=== PATIENT | female | born 1995 | race Caucasian/White ===

== ENCOUNTER → 2018-06-29 11:47 | Outpatient (CLI) | payer BC, SELFPAY ==
[2015-10-01 22:59] VITALS: BMI 22.8
[2018-06-29 15:43] LABS: Chlamydia Trachomatis by PCR Negative (Negative); Neisserai gonorrhoeae by PCR Negative (Negative); Probe Check PASS; Sample Adequacy Control PASS; Specimen Processing Control PASS
== END ==
PROVIDERS: Visit Provider Obstetrics & Gynecology
DX: Z11.3 Encounter for screening for infections with a predominantly sexual mode of transmission (principal); Z34.81 Encounter for supervision of other normal pregnancy, first trimester
CPT/HCPCS: 36415; 84702; 87491; 87591

== ENCOUNTER → 2018-07-05 11:40 | Outpatient (CLI) | payer BC, SELFPAY ==
[2018-07-05 12:28] LABS: Absolute Lymphocyte Count 1.78 X10^3/ul (0.83-4.51); Basophil# 0.01 X10^3/uL; Basophil% 0.1 % (0-1); Eosinophil# 0.03 X10^3/uL; Eosinophils% 0.4 % (0-5); Hematocrit 40.1 % (37-47); Hemoglobin 13.4 g/dl (12.0-15.0); Lymphocyte # 1.78 X10^3/ul (4.0); Lymphocyte % 24.7 % (19-41); Mean Corp Hgb Conc 33.4 g/gl (32-36); Mean Corpuscular Hgb 27.5 pg (27.0-32.0); Mean Corpuscular Volume 82.2 fL (81-99); Mean Platelet Vol. 10.9 fl (6.2-12.0); Monocyte# 0.38 X10^3/uL; Monocyte% 5.3 % (0-10); Neutrophil # 4.98 X10^3/uL (2.7-7.7); Neutrophil % 69.1 % (47-70); Platelet Count 245 K/mm3 (150-450); RBC Distribution Width CV 13.5 % (11.6-14.6); RBC Distribution Width SD 39.8 fl (35.1-43.9); Red Blood Count 4.88 M/mm3 (4.2-5.4); White Blood Count 7.2 K/mm3 (4.4-11.0)
[2018-07-05 12:31] LABS: POSITIVE COUNT NO; POSITIVE DIFFERENTIAL NO; POSITIVE MORPHOLOGY NO
[2018-07-05 12:35] LABS: Color, Urine Yellow (Yellow); Glucose, Dipstick Normal (Normal); Ketone-Dipstick Negative (Negative); Leukocyte Esterase-Dipstick 25 /ul (Negative); Nitrite-Dipstick Negative (Negative); Occult Blood-Urine Negative /ul (Negative); Protein-Dipstick 15 mg/dl (Negative); Specific Gravity, Urine 1.015 (1.002-1.030); Urine Bilirubin Dipstick Negative (Negative); Urine Clarity Clear (Clear); Urine Urobilinogen Normal (Normal)
[2018-07-05 12:39] LABS: Amphetamine Urine VISTA NEGATIVE (<1000 ng/mL); Barbiturate Urine VISTA NEGATIVE (< 200 ng/mL); Benzodiazepine Urine VISTA NEGATIVE (< 200 ng/mL); Cocaine Urine VISTA NEGATIVE (< 300 ng/mL); Ecstacy Urine VISTA NEGATIVE (< 500 ng/mL); Methadone Urine VISTA NEGATIVE (< 300 ng/mL); PCP Urine VISTA NEGATIVE (< 25 ng/mL); THC Urine VISTA NEGATIVE (< 50 ng/mL); Vista UDS pH Range 7
[2018-07-05 12:44] LABS: Thyroid Stim Hormone (TSH) 1.15 uIU/mL (0.358-3.74)
[2018-07-05 13:24] LABS: HIV - WCH Non-Reactive (Nonreactive); Rubella IgG 113.9 IU/mL; Vitamin D,25 Hydroxy 15.9 ng/mL (29.95-100.01)
[2018-07-06 01:44] LABS: Prenatal RPR NONREACTIVE (NONREACTIVE)
[2018-07-06 13:27] LABS: HEPATITIS B SURFACE AG Negative (Negative); Hep C Antibodies <0.1 s/co ratio (0.0-0.9); Toxoplasma Gondii IgG < 3.0 IU/mL (0.0-7.1); Toxoplasma Gondii IgM < 3.0 AU/mL (0.0-7.9)
== END ==
PROVIDERS: Visit Provider Obstetrics & Gynecology
DX: Z34.81 Encounter for supervision of other normal pregnancy, first trimester (principal)
CPT/HCPCS: 36415; 80307; 81002; 82306; 84443; 85025; 86703; 86762; 86777; 86778; 86803; 87340

== ENCOUNTER 2018-08-04 11:10 | Emergency (ER) | payer BC, SELFPAY ==
[2018-08-04 11:11] VITALS: BP 108/70; PULSE 94; RESP 16; TEMP 36.8; O2SAT 100; BMI 31.3
[2018-08-04] MEDS: 0.9% Normal Saline 1,000 ML 1000 ML IV (11:41)
[2018-08-04] MEDS: proMETHazine 25 MG/ML Syringe 12.5 MG IV (11:41)
[2018-08-04 11:54] LABS: Absolute Lymphocyte Count 1.34 X10^3/ul (0.83-4.51); Absolute Neutrophil Count 5.3 X10^3/uL (2.0-7.7); Basophil# 0.01 X10^3/uL; Basophil% 0.1 % (0-1); Eosinophil# 0.04 X10^3/uL; Eosinophils% 0.6 % (0-5); Hematocrit 37.7 % (37-47); Lymphocyte # 1.34 X10^3/ul (4.0); Lymphocyte % 18.8 % (19-41); Mean Corp Hgb Conc 34.5 g/gl (32-36); Mean Corpuscular Hgb 28.3 pg (27.0-32.0); Mean Platelet Vol. 10.6 fl (6.2-12.0); Monocyte# 0.38 X10^3/uL; Monocyte% 5.3 % (0-10); Neutrophil # 5.33 X10^3/uL (2.7-7.7); Neutrophil % 74.8 % (47-70); POSITIVE COUNT NO; POSITIVE DIFFERENTIAL NO; POSITIVE MORPHOLOGY NO; Platelet Count 194 K/mm3 (150-450); RBC Distribution Width CV 13.5 % (11.6-14.6); RBC Distribution Width SD 39.8 fl (35.1-43.9); White Blood Count 7.1 K/mm3 (4.4-11.0)
[2018-08-04 12:02] LABS: Anion Gap 6 (5-15); BUN 8 mg/dL (7-18); Calcium,Total 9.2 mg/dL (8.5-10.1); Chloride 108 mmol/L (98-107); Creatinine, Serum 0.57 mg/dL (0.55-1.02); EST Glomerular Filtration Rate 138 mL/min (>60); Est Glom Filt Rate - Afr Amer 167 mL/min (>60); Estimated Creatinine Clearance 153.52 ml/min; Glucose 86 mg/dL (74-106); Sodium Level 137 mmol/L (136-145)
[2018-08-04 13:05] VITALS: BP 107/51; PULSE 60; RESP 16
[2018-08-04] MEDS: 0.9% Normal Saline 1,000 ML 150 ML IV (13:08)
[2018-08-04 13:13] LABS: Red Blood Cells-Urine 0 SEEN /hpf (0-5)
[2018-08-04 13:18] LABS: Color, Urine Yellow (Yellow); Glucose, Dipstick Normal (Normal); Ketone-Dipstick Negative (Negative); Leukocyte Esterase-Dipstick 25 /ul (Negative); Nitrite-Dipstick Negative (Negative); Occult Blood-Urine Negative /ul (Negative); Protein-Dipstick Negative (Negative); Urine Bilirubin Dipstick Negative (Negative); Urine Clarity Sl. Cloudy (Clear); Urine Urobilinogen Normal (Normal)
[2018-08-04 13:26] LABS: Bacteria 2+ /hpf (None Seen); Mucous, Urine 1+ /hpf (<or=2+); Squamous Epithelial Cells - UA 0-5 SEEN /hpf (5-10); White Blood Cells 0-5 SEEN /hpf (0-5)
--- NOTE | 2018-08-04 14:32 | ED.VISSUMM ---
- ER Visit Summary Date of Service: 08/04/18 Chief Complaint: Nausea and vomiting History of Present Illness: The patient is a 23 F who is currently 12 weeks . She states she has had nausea throughout her but is been worse over the past 2 days. States is not been able to keep anything down and has noted decreased urination. Physical Examination: Vital signs unremarkable. Patient lying in bed no acute distress. Heart is regular rate and rhythm. Lung sounds are clear. Abdomen is soft with mild suprapubic tenderness. No guarding or rebound. Test Results: CBC and chemistry studies unremarkable. Urinalysis unremarkable. Emergency Department Course and Treatment: Patient was given IV fluids and Phenergan. She is given p.o. fluid challenge. At this time she is able to tolerate p.o. fluids. She does not want to try to eat. She will be given Phenergan p.o. and suppositories for home. She is to return for any worsening symptoms. Treatment Plan: [] Disposition: Discharge Impression: 1. Vomiting, improved 2. First trimester This note was generated with [employer] dictation software. It may contain incorrect words, spelling, and punctuation that were not noted in review of the chart prior to signing ED Disposition - Plan for ED Patient: Disposition: Home or Assisted Living Instructions: ED Nausea Vomiting Prescriptions: proMETHazine suppository [Phenergan Suppository] 25 mg RECTAL Q6H PRN PRN #6 suppos. PRN Reason: Nausea proMETHazine tablet [Phenergan] 25 mg PO Q6H PRN PRN #10 tablet PRN Reason: Nausea Referrals: Colette Asutdillo MD [STAFF PHYSICIAN] - 5-7 Days
[2018-08-04 14:48] VITALS: PULSE 60; RESP 16; O2SAT 100
== END 2018-08-04 14:48 | disposition home or self-care (01) ==
PROVIDERS: Emergency Provider Emergency Medicine
DX: O21.9 Vomiting of pregnancy, unspecified (principal); Z3A.12 12 weeks gestation of pregnancy
CPT/HCPCS: 80048; 81001; 85025; 96361; 96374; 99284; J7030

== ENCOUNTER 2018-09-20 00:02 | Emergency (ER) | payer MEDICAID, SELFPAY ==
[2018-09-20 00:02] VITALS: BP 142/72; PULSE 88; RESP 20; TEMP 36.8; O2SAT 99; BMI 31.2
--- NOTE | 2018-09-20 00:40 | US_ITS ---
STUDY: SECOND AND THIRD TRIMESTER OBSTETRICAL ULTRASOUND - LIMITED REASON FOR EXAM: Female, 23 years old. Pain and cramping. LMP: 05/16/2018 PRIOR ULTRASOUND: None. TECHNIQUE: Transabdominal TECHNICAL QUALITY: Adequate. FINDINGS: There is a single intrauterine fetus. The fetus is in a cephalic presentation. There is demonstrated cardiac activity with a heart rate of 136 bpm. There is a normal amniotic fluid volume. The largest amniotic fluid pocket measures 2.5 cm. The amniotic The placenta is posterior with a marginal previa. There are Grade 0 placental changes. The cervix measures 3.3 cm in length. BIOMETRY: BPD: 3.9: 18 weeks, 1 days HC: 14.8: 18 weeks, 0 days AC: 12.8: 18 weeks, 3 days FL: 2.7: 18 weeks, 2 days Age by LMP: 18 weeks, 1 days. CHRISTY by LMP: 02/20/2019. age by current US: 18 weeks, 2 days. CHRISTY by current US: 02/19/2019. Estimated weight: 233 grams, +/- 34 grams, 54 percentile. US/Transvaginal w/Preg US IMPRESSION: The placenta is posterior with a marginal previa Electronically Signed: Ronnie Leyva, at 3:22 EDT Tel , Service support ,
--- NOTE | 2018-09-20 00:41 | ED.VISSUMM ---
- ER Visit Summary Date of Service: 09/20/18 Chief Complaint: Pelvic cramping History of Present Illness: The patient is a 23 F presenting with pelvic cramping. Patient states this started around 1030 this evening. She states she initially had lower back pain and then developed severe lower abdominal pain. She is approximately 18 weeks . G1, P0. She denies vaginal bleeding or fluid leakage. She also complains of chest pain and back pain. She denies shortness of breath. Denies pain with deep inspiration. Denies other complaints. Physical Examination: Vitals are stable. Patient is afebrile. Alert no acute distress. HEENT exam is unremarkable. Neck is supple. Lungs are clear and equal bilaterally. Heart is regular rate and rhythm. Abdomen is soft suprapubic tenderness : Cervix is closed, no vaginal bleeding or tissue visualized Extremities are unremarkable. Skin is warm and dry. Remainder of exam is unremarkable. Emergency Department Course and Treatment: Patient was given morphine, Zofran IV. CBC, chemistries unremarkable. Urinalysis unremarkable. EKG is sinus rate of 64 with no acute ischemic changes. Troponin is negative. Lipase is normal. Pelvic ultrasound shows the placenta is posterior with a marginal previa. CTA chest shows normal CTA chest examination, without a demonstrated pulmonary embolism or arterial dissection. On repeat evaluation, patient is now resting comfortably. She states her pain has resolved. Discussed with Dr. Patterson covering for Dr. Astudillo. Patient will follow-up in the office. Advised to return to the ED for any worsening complaints. Disposition: Discharged home Impression: Pelvic pain, This note was generated with [employer] dictation software. It may contain incorrect words, spelling, and punctuation that were not noted in review of the chart prior to signing ED Disposition - Plan for ED Patient: Referrals: Care Physician,No Primary [Primary Care Provider] -
[2018-09-20] MEDS: Ondansetron 4 MG/2 ML Vial IV (00:44)
[2018-09-20] MEDS: Morphine 4 MG/ML Syringe IV (00:44)
[2018-09-20 01:06] LABS: Bacteria 0 SEEN /hpf (None Seen); Mucous, Urine 0 SEEN /hpf (<or=2+); Red Blood Cells-Urine 0 SEEN /hpf (0-5); White Blood Cells 0 SEEN /hpf (0-5)
[2018-09-20 01:08] LABS: Absolute Lymphocyte Count 3.05 X10^3/ul (0.83-4.51); Absolute Neutrophil Count 6.3 X10^3/uL (2.0-7.7); Basophil# 0.01 X10^3/uL; Basophil% 0.1 % (0-1); Eosinophil# 0.08 X10^3/uL; Eosinophils% 0.8 % (0-5); Hematocrit 37.3 % (37-47); Hemoglobin 12.7 g/dl (12.0-15.0); Lymphocyte # 3.05 X10^3/ul (4.0); Mean Corpuscular Hgb 28.9 pg (27.0-32.0); Mean Platelet Vol. 10.7 fl (6.2-12.0); Monocyte# 0.63 X10^3/uL; Monocyte% 6.2 % (0-10); Neutrophil # 6.34 X10^3/uL (2.7-7.7); Neutrophil % 62.4 % (47-70); POSITIVE COUNT NO; POSITIVE DIFFERENTIAL NO; POSITIVE MORPHOLOGY NO; Platelet Count 195 K/mm3 (150-450); RBC Distribution Width SD 43.3 fl (35.1-43.9); Red Blood Count 4.39 M/mm3 (4.2-5.4); White Blood Count 10.2 K/mm3 (4.4-11.0)
[2018-09-20 01:13] LABS: Anion Gap 6 (5-15); BUN 10 mg/dL (7-18); Calcium,Total 9.1 mg/dL (8.5-10.1); Chloride 106 mmol/L (98-107); Creatinine, Serum 0.59 mg/dL (0.55-1.02); EST Glomerular Filtration Rate 133 mL/min (>60); Est Glom Filt Rate - Afr Amer 161 mL/min (>60); Estimated Creatinine Clearance 148.32 ml/min; Glucose 86 mg/dL (74-106); Potassium 4.4 mmol/L (3.5-5.1); Sodium Level 135 mmol/L (136-145)
[2018-09-20 01:25] LABS: Color, Urine Yellow (Yellow); Glucose, Dipstick Normal (Normal); Ketone-Dipstick 5 mg/dl (Negative); Leukocyte Esterase-Dipstick Negative /ul (Negative); Nitrite-Dipstick Negative (Negative); Occult Blood-Urine Negative /ul (Negative); Protein-Dipstick 15 mg/dl (Negative); Urine Bilirubin Dipstick Negative (Negative); Urine Clarity Sl. Cloudy (Clear); Urine Urobilinogen Normal (Normal)
[2018-09-20 01:31] LABS: Squamous Epithelial Cells - UA 0-5 SEEN /hpf (5-10)
[2018-09-20 02:39] VITALS: BP 108/62; PULSE 79; RESP 18; O2SAT 97
--- NOTE | 2018-09-20 03:32 | CT_ITS ---
STUDY: CTA CHEST REASON FOR EXAM: Female, 23 years old. Chest pain radiating to the back RADIATION DOSAGE (If Supplied By Facility): CTDIvol = ( 12.46 ) mGy, DLP = ( 451.56 ) mGycm TECHNIQUE: The examination was performed with the intravenous administration of 100ML IV Isovue 370. Post-processing of the angiographic images was performed, with multiplanar reformation and 3D reconstruction. Individualized dose optimization techniques were used for this CT. COMPARISON: None. FINDINGS: Normal enhancement of the main pulmonary artery and right and left pulmonary arteries. Normal enhancement of the bilateral peripheral pulmonary arteries. There is no demonstrated pulmonary embolism. Normal thoracic aorta and visualized great vessels. There is no demonstrated aortic dissection. Normal heart and pericardium. Normal mediastinum. Normal hilar regions. Normal visualized trachea and bronchi. The lungs are well expanded. Normal pulmonary parenchyma. Normal pleura. Normal chest wall structures. Normal osseous structures. Normal visualized upper abdomen. CT/CTA Chest W/WO Contrast IMPRESSION: Normal CTA chest examination, without a demonstrated pulmonary embolism or arterial dissection. Electronically Signed: Ronnie Leyva, at 4:15 EDT Tel , Service support ,
--- NOTE | 2018-09-20 03:33 | EKG12_ITS ---
Test Reason : Blood Pressure : / mmHG Vent. Rate : 064 BPM Atrial Rate : 064 BPM P-R Int : 186 ms QRS Dur : 080 ms QT Int : 430 ms P-R-T Axes : 025 007 003 degrees QTc Int : 443 ms Normal sinus rhythm Possible Left atrial enlargement Borderline ECG Confirmed by [employer] FOREMAN, MATIAS ([id number]), editor city [place] BOSCH ([id number]) on 09/24/2018 1:30:57 PM Referred By: NADINE Confirmed By:MATIAS DUTTON MD
[2018-09-20 05:03] LABS: Lipase 108 U/L (73-393)
--- NOTE | 2018-09-20 05:16 | ED.DEP ---
ED Disposition - Plan for ED Patient: Instructions: Back Pain During , ABDOMINAL PAIN, Early Referrals: Colette Astudillo MD [STAFF PHYSICIAN] -
[2018-09-20 05:25] VITALS: BP 113/79; PULSE 74; RESP 16; O2SAT 98
== END 2018-09-20 05:25 | disposition home or self-care (01) ==
LOC: ED 00:35
PROVIDERS: Emergency Provider Emergency Medicine
DX: O26.892 Other specified pregnancy related conditions, second trimester (principal); R10.2 Pelvic and perineal pain; Z3A.18 18 weeks gestation of pregnancy
CPT/HCPCS: 71275; 76817; 80048; 81001; 83690; 84484; 85025; 93005; 96374; 96375; 99283; Q9967; A4216; J2405

== ENCOUNTER → 2018-11-26 08:54 | Outpatient (CLI) | payer MEDICAID, SELFPAY ==
[2018-11-26 10:41] LABS: Hematocrit 32.9 % (37-47); Hemoglobin 10.5 g/dL (12.0-15.0); Mean Corp Hgb Conc 31.9 g/dL (32-36); Mean Corpuscular Hgb 28.7 pg (27.0-32.0); Mean Corpuscular Volume 89.9 fL (81-99); Mean Platelet Vol. 10.7 fl (6.2-12.0); Platelet Count 216 K/mm3 (150-450); RBC Distribution Width CV 13.1 % (11.6-14.6); RBC Distribution Width SD 42.7 fl (35.1-43.9); Red Blood Count 3.66 M/mm3 (4.2-5.4); White Blood Count 8.1 K/mm3 (4.4-11.0)
[2018-11-26 10:46] LABS: Glucose Challenge Gest 1H 50g 129 mg/dL (70-140)
== END ==
PROVIDERS: Visit Provider Obstetrics & Gynecology
DX: Z34.82 Encounter for supervision of other normal pregnancy, second trimester (principal)
CPT/HCPCS: 36415; 82950; 85027

== ENCOUNTER 2018-12-05 19:40 | Outpatient (CLI) | payer MEDICAID, SELFPAY ==
[2018-12-05 20:09] VITALS: BMI 31.7
--- NOTE | 2018-12-08 06:17 | OB.TRI.NOTE ---
History of Present Illness Date of Service: 12/05/18 Was patient seen by the physician?: No Reason For Visit: DECREASED MOVEMENT Date of Service: 12/05/18 Final CHRISTY: 02/20/19 Gestational age: 29 Weeks History of Present Illness: 23 yo presented to triage c/0 decreased FM; she states to RN that her placenta is also close to my cervix; she denies bleeding or contractions Allergies No Known Allergies Allergy (Verified 09/20/18 00:04) NST - FHR Rate Baby A Variability:: Moderate Accelerations:: 15 x 15 Decelerations:: None NST Reactive:: Yes, Appropriate for gestational age FHR Category:: Category I Uterine Activity:: occasional Impression/Plan Assessment: Reactive NST, patient now feeling FM Plan: Discharge home with PTL precautions, pelvic rest until next appointment; keep next scheduled appointment in office on Monday
== END 2018-12-05 20:38 | disposition home or self-care (01) ==
LOC: WPOUT 19:49 → WP 19:50
PROVIDERS: Referring Provider Advanced Practice Midwife; Visit Provider Advanced Practice Midwife
DX: O36.8130 Decreased fetal movements, third trimester, not applicable or unspecified (principal); Z3A.29 29 weeks gestation of pregnancy
CPT/HCPCS: 59025; 99218; G0378

== ENCOUNTER → 2019-01-24 18:01 | Outpatient (CLI) | payer MEDICAID, SELFPAY | PROVIDERS: Referring Provider Obstetrics & Gynecology; Visit Provider Obstetrics & Gynecology | DX: Z36.85 Encounter for antenatal screening for Streptococcus B (principal) | CPT/HCPCS: 87077; 87081 ==

== ENCOUNTER 2019-02-03 20:15 | Outpatient (CLI) | payer MEDICAID, SELFPAY ==
[2019-02-03 20:58] VITALS: BMI 34.6
--- NOTE | 2019-02-06 07:37 | OB.TRI.NOTE ---
History of Present Illness Date of Service: 02/03/19 Was patient seen by the physician?: No Reason For Visit: RULE OUT LABOR Date of Service: 02/03/19 Final CHRISTY: 02/20/19 Final CHRISTY Source: US <20 weeks Gestational age: 38 Weeks and 0 Days History of Present Illness: 23 yo female at 37 + wks presents for labor check. Uncomfortable after walking around shopping. Allergies No Known Allergies Allergy (Verified 09/20/18 00:04) NST - FHR Rate Baby A Variability:: Moderate Accelerations:: 15 x 15 Decelerations:: None NST Reactive:: Yes, Appropriate for gestational age FHR Category:: Category I Uterine Activity:: rare UCs noted. Impression/Plan 23 yo Female at 3 74/7 wk False labor. Reactive NST Home Keep next appt in office Return to [facility] if inc s/sx of labor, or if decreased movement.
== END 2019-02-03 21:27 | disposition home or self-care (01) ==
LOC: WPOUT 20:41 → WP 20:41
PROVIDERS: Referring Provider Obstetrics & Gynecology; Visit Provider Obstetrics & Gynecology
DX: O47.1 False labor at or after 37 completed weeks of gestation (principal); Z3A.38 38 weeks gestation of pregnancy
CPT/HCPCS: 59025; 59050; 99218; G0378

== ENCOUNTER 2019-02-15 19:36 | Inpatient (IN) | payer MEDICAID, SELFPAY ==
[2019-02-15 08:00] VITALS: BMI 34.9
--- NOTE | 2019-02-15 14:06 | OB.TRI.NOTE ---
History of Present Illness Date of Service: 02/15/19 Was patient seen by the physician?: No Reason For Visit: R/O LABOR Date of Service: 02/15/19 Final CHRISTY: 02/20/19 Final CHRISTY Source: US <20 weeks Gestational age: 39 Weeks and 2 Days History of Present Illness: Pt presents to unit c/o contractions becoming longer,stronger, closer together; some she is unable to walk or talk through Allergies No Known Allergies Allergy (Verified 09/20/18 00:04) Physical Exam Presentation: Cephalic Cervix Dilation (cm): 3 - Exam per RN at 0730 and 0930 Station: -3 Effacement (%): 75 NST - FHR Rate Baby A Baseline: 125 Variability:: Moderate Accelerations:: 15 x 15 Decelerations:: None NST Reactive:: Yes, Appropriate for gestational age FHR Category:: Category I Uterine Activity:: Q 2-3 minuteds Impression/Plan Impression: 23yo at 39w2d gestation by 7w1d US R/O labor, no cervical supervisor records change two hours, no VB or LOF Cat 1 FHTs Plan: DC home with labor precautions, FM counts, increased fluids and rest
[2019-02-15] MEDS: Lactated Ringers 1,000 ML 200 ML IV (19:55)
[2019-02-15] MEDS: Lactated Ringers 500 ML 999 ML IV ×2 (19:57→21:08)
[2019-02-15] MEDS: Acetaminophen 325 MG Tablet PO (20:08)
[2019-02-15 20:11] LABS: Absolute Lymphocyte Count 2.19 X10^3/uL (0.83-4.51); Absolute Neutrophil Count 10.1 X10^3/uL (2.0-7.7); Basophil# 0.05 X10^3/uL; Basophil% 0.4 % (0-1); Eosinophil# 0.15 X10^3/uL; Eosinophils% 1.1 % (0-5); Hematocrit 29.8 % (37-47); Hemoglobin 9.4 g/dL (12.0-15.0); Lymphocyte # 2.19 X10^3/ul (4.0); Lymphocyte % 16.2 % (19-41); Mean Corp Hgb Conc 31.5 g/dL (32-36); Mean Corpuscular Hgb 25.1 pg (27.0-32.0); Mean Corpuscular Volume 79.7 fL (81-99); Mean Platelet Vol. 10.3 fl (6.2-12.0); Monocyte# 0.91 X10^3/uL; Monocyte% 6.7 % (0-10); NRBC Flagged by Analyzer 0 % (0-5); Neutrophil # 10.07 X10^3/uL (2.7-7.7); Neutrophil % 74.5 % (47-70); Platelet Count 277 K/mm3 (150-450); RBC Distribution Width CV 14.4 % (11.6-14.6); RBC Distribution Width SD 41.2 fl (35.1-43.9); Red Blood Count 3.74 M/mm3 (4.2-5.4); White Blood Count 13.5 K/mm3 (4.4-11.0)
[2019-02-15] MEDS: fentaNYL-bupivacaine (epidural) 100 ML BAG EPIDURAL (21:21)
[2019-02-15] MEDS: Ondansetron 4 MG/2 ML Vial IV (21:56)
--- NOTE | 2019-02-16 00:10 | PCM.HP.BLA ---
History and Physical Date of Admission: 02/15/19 [facility] ANTEPARTUM RECORD - HISTORY AND PHYSICAL (02/16/2019) Name: RENNY LAM OB Physician: BILLY 's Physician: UNDECIDED ...................................................................... : 1995 Age: 23 Address: [address] [place] [address] Phone: H) [phone] Insurance Carrier: [facility] [phone] Emergency Contact: BARRY LAM [phone] ...................................................................... Renny is a 23yo at 39w3d gestation by 7w1d US who presented to the unit last evening c/o contractions that began yesterday morning around 0600 and progressively became more painful and closer together. She reports active FM, and denies VB or LOF; She is group B negative and blood type O positive. Upon being ruled in for labor she opted for an epidural and is now comfortable. She prefers MD for delivery, is OK w/CNM for labor management until then. Final CHRISTY: 02/20/19 By Ultrasound: 7 weeks 1 day PARITY: (G-Total Pregnancies P-Fullterm,Premature,Induced AB,Spont AB, Ectopics, Multiple,Living) CHRISTY CONFIRMATION: By LMP: 05/09/18 Final CHRISTY: 02/20/19 BLOOD TYPE: AFP: 1 HR PG: GBS: Original Ordering Provider: Colette HAYNES Culture Group B Beta Streptococcus is NOT isolated. Rublla titer (>10 immune)-- Hepatatis B sushila AG-- CULTURES:-- Negative OB PROBLEM LIST: Arcuate uterus and PCOS on pelvic sono during infertility evaluation Spontaneous conception Cold sores Topical acyclovir sent in Dates by 7 wk sono EDC 02/20/19 FOB has a 7 year old daughter, shared custody works away much of the time ([employer]) Indoor only cats, changes dustless litter. Toxo IgG, IgM drawn with labs. LOW VIT D Recommend supplement 2000 IU daily OTC Office breastfeeidng and childbirth classes encouraged PREFERS MD for delivery Mother coded and had stat C/S for pt's . Grandmother also with hx of difficult delivery and hemorrhage. Uses smokeless tobacco, working on quitting WANTS MSAFP, declines CF testing DECLINED THEN at 16-17 wk visit ALLERGIES: No Known Drug Allergies No Known Drug Intolerances MEDICATIONS: acyclovir 5 % topical ointment apply 5 x / d prn ferrous sulfate 325 mg (65 mg iron) tablet 1 po daily for mild anemia Medrol (Alejandro) 4 mg tablets in a dose pack as directed 28 mg-800 mcg tablet daily SOCIAL HISTORY: Smoking - chews trying to quit! 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 Drug Use - denies use of street drugs Sexual Activity - Residence - lives with Place of - [place], [place] Hours Worked - 40 Spouse-Sig Other Name - Barry Spouse-Sig Other Occupation - Cash Posting Clerk in [place] Spouse-Sig Other Phone No - [phone] PRIOR DELIVERY HISTORY DEL DATE GEST LAB WT LB WT OZ TYPE ANES LABOR TX ANTEPARTUM FLOW CHART VISIT GE RTC FU F F MS U U DATE WK MD WKS HT PN HR M SS BP ED WT MS GL D EF ST __ ____ ___ __ __ ___ __ __ __ ___ __ __ __ ___ __ Jan ELB 1 39 V + + 124/82 226 - - 2+ 50 hi 18 Jan JMW 1 36 + + 136/74 sl 226 tr - 11 Jan ELB 1 37 V + + 120/72 sl 222 tr - 1 75 -3 Jan ELB 1 35 V + + 120/62 sl 224 tr - cl TH hi Dec JMW 2 33 + + 110/60 sl 217 tr - 07 Jan 17 ELB 2 32 V + + 120/72 sl 213 tr - cl TH hi Dec 16 ELB 2 - V U+ + 122/70 sl 211 - - 09 Dec 14 ELB 2 28 V + + 110/62 0 211 tr - 03 Dec 13 ELB 1 27 - + + 120/60 0 210 12 Oct 23 ELB 4 24 - + + 120/76 0 204 tr - 17 Dirk 20 ELB 4 - - U+ + 112/60 202 tr - 24 Benjamin 16 ELB 4 - - + 0 116/60 0 201 tr - 10 Benjamin 14 ELB 4 - - + 120/72 0 203 tr - 15 July 28 ELB 4 - - + + 100/80 0 208 tr - 18 Apr 8 ELB 4 - - U+ 0 114/68 0 217 tr - ANTEPARTUM NOTE(S): Feb 13 2019: Feb 04 2019: Ctxs-occas, Good FM Jan 28 2019: feeling well. Cervix check. Alot more cramping. Jan 24 2019: LARC declined and GBS today Jan 07 2019: feeling well. Dec 24 2018: ? SROM Dec 10 2018: Sono Today,Good FM,Feeling Well Nov 26 2018: see note Nov 20 2018: see note Oct 29 2018: Round ligament pain, glucola given Oct 03 2018: Sep 10 2018: declines AFP/CF today, doing well Aug 27 2018: Nausea! wt loss Aug 01 2018: struggling with nausea, reviewed all that she can take. Jul 05 2018: tolerable nausea, NOB and u/s today COMPREHENSIVE ANTEPARTUM NOTE(S): Feb 13 2019: Inc in zach moses. Not painful. Would like cervix check. Reviwed s/sx of labor. Discussed labor. She prefers MD for delivery. States her mother was in prolonged labor and no pain med, coded and had to have an emergency C/S with her delivery. She also had grandmother who had pp hemorrhage. States her sister did fine...BUT she is concerned with her first and would like MD for delivery EB Feb 05 2019: Renny was in to OB Monday thinking she might be in labor. VE done. Sent home. Some spotting when she went home, which she expected. Was in the office yesterday, no exam. Brown discharge yesterday and not wearing a pad. Today, having mostly brown discharge with occassional little pinkish color noted on toilet tissue, again very little, only on toilet tissue. Last IC apprx a week ago. Wondering if she should still be having some brownish discharge? She has been at work all day. Advisd watch for now. Brownish color is old blood. Advised can have this for several days off and on. If she would have bright red vaginal bleeding, then she would need to go to L+D to be evaluated. To call back with any further concerns. Feb 04 2019: Feeling well; reports active FM, frequent BH UCs, denies VB, LOF; discussed warning signs, s/s Labor, when to call/come in; RTO 1 week for PNV - KVW Jan 30 2019: H taken to OB. tkg Jan 30 2019: Group B Negative - KVW Jan 26 2019: GBS negative. EB Jan 24 2019: Doing well, no complaints. Reviewed FM, SROM, and labor. LMT Dec 24 2018: Renny is here for evaluation of ? SROM. Relates damp for several days. No big gush, no regular ctx's. LMT Dec 24 2018: ?SROM: inc vaginal dischg. Some occasional cramping. EXAM: neg pool. Neg fern. Neg NTZ. WET PREP: negative. Normal, physiologic dischg. EB Nov 26 2018: Still with itchy rash. Topical not working. RX Medrol dose pack sent in for this. Improving at the L side of face. Abdomen still itchy and no further extension. L side with papules noted. Scattered. EB Hgb 10.5 g/dl. Glucola 129 Notified by phone. Start iron daily EB Nov 26 2018: Renny is here for visit. She relates that her rash is so much worse and she wants to know what it is and it gone. Reviewed again it very hard with rash to pinpoint what and why. Glucola is drawn today. LMT Nov 21 2018: LATE ENTRY from 11/20/18 : here for evaluation of rash. [place] papules noted lateral to L eye-- beneath breasts, scattered rare over lower abdomen . Few with minimal crust. No pattern to rash. States itchy Unable to relate any exposures. Contact dermatitis, unknown allergen. recommend: oral antihistamine and topical application qid or more often prn of hydrocortisone OTC cream. May also use Aveeno products to decrease itching and skin irritation. Nov 20 2018: Pt is 26 wks 6 days prg and has a rash all over her body. It is under her breast, on abd and is going down her inner thigh. It is not on her arms but it is on her neck and face. She was in the house all day. SHe did go to [facility] [place] [facility] but that is all they did all weekend. She feels hot and clammy. She is also a little out of breath. Pt given apt for evaluation. Sep 10 2018: Feeling very well. 20# wt loss noted. DECLINED MSAFP today. RTO in 3-4 wk for PNV, 20 wk sono then. EB Aug 27 2018: DECLINES MSAFP TESTING. Declines med for n/v as most days improved. RTO in 2 wk for wt check, Discussed OTC products for constipation. EB Aug 04 2018: Call Msg from 10:15 AM this morning. Pt of Dr. Astudillo. Renny calling @ 11 wks 3 days tearful, stating she has been vomiting for the past 3 days, unable to tolerate fluids or food. Now vomiting just thick yellow type fluid. She has had some vomiting prior, but this is the worst it has been. Also states she feels like there is a weight on her chest causing her to feel SOB. She lives in [place]. For now, sent to [facility] ER for hydration and evaluation chest Sx. Advised for future, if she has been voming, not tolerating fluids for 12 hrs, she is to call. ER will send her home w/antinausea med. We can give more as needed. Aug 01 2018: Eating smaller portions. Some nausea, but vomiting improved. Declines RX for this. Will try OTC pepcid, zantac, tagamet or similar and if not improved...she is to call in for other RX. RTO in 4 wks. Reviewed all NOB labs. She is on vit D supplement now for her deficiency. EB Jul 06 2018: O positive. EB Jul 05 2018: March WNL. DAWSON nam, NOB nurse, PNV today. EB RI. Vit D 16. Needs supplement. Hgb 13.4 g/dl. EB Jul 05 2018: Renny is here for her NOB visit at 7 w 1 d, she is a with an CHRISTY of 02/20/2019. US and PNV with Dr. Astudillo completed prior to NOB visit. Office practice patterns reviewed, including labs being collected today. , Barry, accompanies her today, and he seems to be supportive. He has a 7 year old daughter from a previous relationship. Delivery at [facility] with an epidural is planned, and she will breastfeed. Office and childbirth ed classes encouraged. Renny does not smoke, but uses smokeless tobacco and has for 10 years; she statesthat she plans to quit entirely, but has cut down to one time per day. She denies drug or ETOH use. She takes an OTC gummy , and generally tolerates this well. Reports nausea most days with emesis. Reviewed that may help minimize nausea, including small frequent meals with protein throughout the day, adequate water hydration of at least one gallon per 24 hours, Unisom at bedtime, Vitamin B6 50 mg twice a day, and motion sickness bracelets. Audrey has a hx of PCOS. Hx of anxiety shared, states no treatment; she states that she feels that she waqas well. Genetic Screening form completed. She would like to have MSAFP drawn, and declines CF testing, consent signed as such. Dietary and water needs reinforced, including caloric needs, recommended weight agin, limiting empty calories, and limiting caffeine to one cup a day. Printed guide for food safety provided with review. Renny walks on a treadmill every day for exercise. Reviewed Kegel exercises dandifying restrictions. She is planning a trip to [place] in July; travel precautions reviewed. Emergencies/danger signs to report, round ligament pain, reporting s/s of a UTI, and common OTC medications approved/not approved for use during . Renny states that she understands all information provided during NOB visit, and has no questions following same. To [facility] draw station for vitamins. AW Jun 29 2018: Renny is here for missed menses appt. Reports LMP 05/09, +UPT today in office, approx EDC 02/13/19. Mild nausea noted. She notes it is worse when taking PNV and chewable may help. Educational materials are provided and reviewed. OTC meds for minor discomforts are reviewed. Encouraged healthy diet as tolerated, increased fluids, 30 minutes of exercise 5x/wk. Many concerns regarding prior work-up for infertilty and what she heard. Wants to go over her uterus (bicornat?), risk of loss, risk of breech, C/S. Feels she did not complete her work-up because she is and worried about some problem d/t the incomplete work-up. Will discuss all concerns further with Dr Astudillo. Pap is current, normal, 04/07. Prior hx of Chlamydia. LMT Jun 29 2018: GC and chlamydia NEG EB REVIEW OF SYSTEMS: GENERAL - Denies fever, or chills SKIN - Denies rash, new skin lesions, or change in moles EYES - Denies blurred vision, or change in visual acuity EARS - Denies ear pain, or difficulty hearing NOSE - Denies nasal congestion, discharge, or bleeding MOUTH - Denies sore throat, or difficulty swallowing NECK - Denies pain or swelling RESPIRATORY - Denies shortness of breath, cough, wheezing CARDIOVASCULAR - Denies palpitations, chest pain, orthopnea, PND, peripheral edema, syncope or claudication GASTROINTESTINAL - Denies nausea, vomiting, diarrhea, constipation, Denies abdominal pain, melena and or bright red blood GENITOURINARY - Denies dysuria, frequency of urination, urgency, or hesitancy MUSCULOSKELETAL - Denies joint or muscle pain, or back pain NEUROLOGICAL - Denies localized numbness, weakness, or tingling PSYCHIATRIC - Denies depression, anxiety, substance abuse or suicide attempts ENDOCRINE - Denies heat or cold intolerance, weight loss or gain, increasing thirst HEMATO-IMMUNOLOGIC - Denies easy bruising, bleeding, oral ulcerations or recurrent infections GENETICS SCREENING: Age 35+ years: No Thalassemia: No Neural Tube Defect: No Down Syndrome: No TRAV-SACHS: No Sickle Cell Disease: No Hemophilia: No Musc. Dystrophy: No Cystic Fibrosis: No-declines screening [place] Chorea: No Mental Retardation: No Fragile X: No Other genetic: No Other defects: No SABs/still births: No Drugs since LMP: No INFECTION HISTORY: High risk AIDS: No High risk Hepatitis: No Exposed to TB: No Exposed to Herpes: No Rash/viral illness since LMP: No History of STD: No MENSTRUAL HISTORY: *Menses Regularity: IrregularMenarche (Age Onset): 15* PAST SUMMARY: PARITY: 1. Total Pregnancies............ 1 2. Full Term Pregnancies........ 0 3. Premature.................... 0 4. Abortions - Induced.......... 0 5. Abortions - Spontaneous...... 0 6. Ectopics..................... 0 7. Multiple Births.............. 0 8. Living Children.............. 0 Labs for : RENNY LAM since 05/26/2018 ORDER DATEIN DESCRIPTION VALUE UNITS RANGE A+ COMMENT TYPE AND SCREEN 02/15/19 Reason for Type AND Screen/Red Cells: [facility]~[address], [address]~ BLOOD TYPE GEL O POSITIVE N ANTIBODY SCREEN NEGATIVE N Reviewed by TIANNA CBC W/DIFF, AUTOMATED 02/15/19 NOTE Original Ordering Provider: CHICO Knutson WBC 13.5 K/mm3 4.4-11.0 H RBC 3.74 M/mm3 4.2-5.4 L HGB 9.4 g/dL 12.0-15.0 L HCT 29.8 % 37-47 L MCV 79.7 fL 81-99 L MCH 25.1 pg 27.0-32.0 L MCHC 31.5 g/dL 32-36 L RDW CV 14.4 % 11.6-14.6 RDW SD 41.2 fl 35.1-43.9 PLT 277 K/mm3 150-450 MPV 10.3 fl 6.2-12.0 NEUT% 74.5 % 47-70 H LY% 16.2 % 19-41 L MONO% 6.7 % 0-10 EO% 1.1 % 0-5 BASO% 0.4 % 0-1 IM GRAN % 1.100 % 0.0-0.9 H IG% - Immature Granulocytes (promyelocytes, myelocytes and metamyelocytes) > 1% indicates that a LEFT SHIFT is Present. ABSOLUTE NEUT 10.1 X10 3/uL 2.0-7.7 H ABSOLUTE LYMPH 2.19 X10 3/uL 0.83-4.51 NRBC, FLAGGED 0 % 0-5 CULTURE, GROUP B STREPTOCOCCUS 01/24/19 NOTE Original Ordering Provider: Colette Astudillo [place] Culture Group B Beta Streptococcus is NOT isolated. Reviewed by TIANNA Reviewed by COLETTE Reviewed by COLETTE GLUCOSE CHALLENGE GEST 1H 50G 11/26/18 NOTE Original Ordering Provider: Colette Astudillo GLU GEST 50G 1H 129 mg/dL 70-140 Reviewed by COLETTE CBC-COMPLETE BLOOD CNT NO DIFF 11/26/18 NOTE Original Ordering Provider: Colette Astudillo WBC 8.1 K/mm3 4.4-11.0 RBC 3.66 M/mm3 4.2-5.4 L HGB 10.5 g/dL 12.0-15.0 L HCT 32.9 % 37-47 L MCV 89.9 fL 81-99 MCH 28.7 pg 27.0-32.0 MCHC 31.9 g/dL 32-36 L RDW CV 13.1 % 11.6-14.6 RDW SD 42.7 fl 35.1-43.9 PLT 216 K/mm3 150-450 MPV 10.7 fl 6.2-12.0 Reviewed by COLETTE TOXOPLASMA GONDII IGM 07/05/18 NOTE Original Ordering Provider: Colette Astudillo TOXOP IGM < 3.0 AU/mL 0.0-7.9 Negative <8.0 Equivocal 8.0 - 9.9 Positive >9.9 TOX. GONDII COM . It is presumed the patient has not been infected with and is not undergoing an acute infection with Toxoplasma. If symptoms persist, submit a new specimen after three weeks. Performed at: [facility] [employer]back[address] [id number] Overlock Elastic Attacher: Manuel Canseco PhD, Phone: [phone] Reviewed by COLETTE TOXOPLASMA GONDII IGG 07/05/18 NOTE Original Ordering Provider: Colette Astudillo TOXOPIGG < 3.0 IU/mL 0.0-7.1 Negative <7.2 Equivocal 7.2 - 8.7 Positive >8.7 Reviewed by COLETTE HEPATITIS C ANTIBODIES 07/05/18 NOTE Original Ordering Provider: Colette Astudillo HEP C AB <0.1 s/co ratio 0.0-0.9 Negative: < 0.8 Indeterminate: 0.8 - 0.9 Positive: > 0.9 The CDC recommends that a positive HCV antibody result be followed up with a HCV Nucleic Acid Amplification test (287559). Reviewed by COLETTE HEPATITIS B SURFACE AG 07/05/18 NOTE Original Ordering Provider: Colette Astudillo HB SURF AG Negative Negative Performed at: [address] [id number] Overlock Elastic Attacher: Manuel Canseco PhD, Phone: [phone] Reviewed by COLETTE RPR 07/05/18 NOTE Original Ordering Provider: Colette Astudillo RPR NONREACTIVE NONREACTIVE Reviewed by COLETTE T AND S-NO CHARGE W/PNP 07/05/18 Reason for Type AND Screen/Red Cells: Surgery? N [facility]~[address] [place], [address]~ BLOOD TYPE GEL O POSITIVE N AB SCREEN GEL NEGATIVE N Reviewed by COLETTE HIV - [facility] 07/05/18 NOTE Original Ordering Provider: Colette Astudillo HIV - [facility] Non-Reactive Nonreactive Reviewed by COLETTE RUBELLA IGG 07/05/18 NOTE Original Ordering Provider: Colette Astudillo RUBELLA IGG 113.9 IU/mL Antibody results Interpretation of Immune Status < 5 IU/ml Presumed Non-immune 5 - < 10 IU/ml Equivocal > or = 10 IU/ml Presumed Immune Reviewed by COLETTE VITAMIN D,25 HYDROXY 07/05/18 NOTE Original Ordering Provider: Colette Astudillo VITAMIN D 25-OH 15.9 ng/mL 29.95-100.01 L Vitamin D 25(OH) Status Range Deficiency <20 ng/mL (50nmol/L) Insufficiency 20 - 30 ng/mL (50 - 75 nmol/L) Sufficiency 30 - 100 ng/mL (75 - 250 nmol/L) Toxicity >100 ng/mL (>250 nmol/L) Reviewed by COLETTE THYROID STIM HORMONE (TSH) 07/05/18 NOTE Original Ordering Provider: Colette Astudillo TSH 1.15 uIU/mL 0.358-3.74 Reviewed by COLETTE URINE DRUG SCREEN (VISTA) 07/05/18 NOTE Original Ordering Provider: Colette Astudillo TO BE CONFIRMED CONFIRMATORY TESTING FOR ALL POSITIVE URINE DRUG SCREEN RESULTS WILL ONLY BE SENT OUT UPON PHYSICIAN ORDER. VISTA Urine Drug Screen methods provide only preliminary analytical test results. A more specific alternate chemical method must be used in order to obtain a confirmed analytical result. Gas chromatography/mass spectrometery (GC/MS) is the preferred confirmatory method. Clinical consideration and professional judgement should be applied to any drug of abuse test result, particularly when preliminary positive results are used. URINE TCA TESTING MUST BE ORDERED SEPARATELY. USE TEST MNEMONIC: [facility]ISTA UDS PH 7 AMPHETAMINES NEGATIVE <1000 ng/mL BARBITIURATES NEGATIVE < 200 ng/mL BENZODIAZIPINE NEGATIVE < 200 ng/mL COCAINE NEGATIVE < 300 ng/mL ECSTACY NEGATIVE < 500 ng/mL METHADONE NEGATIVE < 300 ng/mL OPIATES NEGATIVE < 300 ng/mL PCP NEGATIVE < 25 ng/mL THC NEGATIVE < 50 ng/mL Reviewed by COLETTE URINALYSIS, ROUTINE (DIPSTICK) 07/05/18 NOTE Original Ordering Provider: Colette Astudillo COLOR Yellow Yellow CLARITY Clear Clear GLUCOSE, UR Normal mg/dl Normal BILIRUBIN URINE Negative mg/dL Negative KETONE UR Negative mg/dl Negative SP.GR. DIPSTX 1.015 1.002-1.030 PH UR 8.0 5.0 - 8.0 PROT DIPSTX 15 mg/dl Negative H UROBILI Normal mg/dl Normal NITRITE UR Negative Negative OCCULT BLOOD-UR Negative /ul Negative LEUK ESTERASE 25 /ul Negative H Reviewed by COLETTE CBC W/DIFF, AUTOMATED 07/05/18 NOTE Original Ordering Provider: Colette Astudillo WBC 7.2 K/mm3 4.4-11.0 RBC 4.88 M/mm3 4.2-5.4 HGB 13.4 g/dl 12.0-15.0 HCT 40.1 % 37-47 MCV 82.2 fL 81-99 MCH 27.5 pg 27.0-32.0 MCHC 33.4 g/gl 32-36 RDW CV 13.5 % 11.6-14.6 RDW SD 39.8 fl 35.1-43.9 PLT 245 K/mm3 150-450 MPV 10.9 fl 6.2-12.0 NEUT% 69.1 % 47-70 LY% 24.7 % 19-41 MONO% 5.3 % 0-10 EO% 0.4 % 0-5 BASO% 0.1 % 0-1 IM GRAN % 0.400 % 0.0-0.9 IG% - Immature Granulocytes (promyelocytes, myelocytes and metamyelocytes) > 1% indicates that a LEFT SHIFT is Present. ABSOLUTE NEUT 5.0 X10 3/uL 2.0-7.7 ABSOLUTE LYMPH 1.78 X10 3/ul 0.83-4.51 Reviewed by COLETTE HCG TITER QUANT., SERUM 06/29/18 NOTE Original Ordering Provider: Colette Astudillo HCG QUANT. 22870 mIU/mL <9 non-preg H Reviewed by COLETTE CT/[facility] BY PCR 06/29/18 NOTE Original Ordering Provider: Colette KEYS [facility] PCR Negative Negative NG BY PCR Negative Negative Reviewed by COLETTE PROVIDER SIGNATURE ( REQUIRED) PHYSICAL EXAMINATION General Appearence: 23 yo female in no acute distress Vital Signs: AF, VSS Heart: RRR without rubs or gallops Lungs: CTA x 2 Breasts: deferred Abdomen: gravid Pelvis: Cervix: 3/80/-2 at 1645, 5.5/80/-2 at 2230 last evening per RN; BOW intact Presentation: cephalic Fetus: Size: AGA Movement: present Heart: 155 baseline, moderate variability, no accels or decels UCs: Q 2-3 per palpation Impression: 23yo at 39w3d gestation by 7w1d US Active labor, comfortable with epidura GBS negative, O positive blood type Cat 1 FHTs Plan: D/w Dr. Patterson who will assume care when pt is C&P Expectant management Anticipate vaginal delivery
[2019-02-16] MEDS: Lactated Ringers 1,000 ML 200 ML IV ×2 (00:47→05:49)
[2019-02-16] MEDS: fentaNYL-bupivacaine (epidural) 100 ML BAG EPIDURAL ×2 (02:03→06:47)
--- NOTE | 2019-02-16 03:57 | PCM.PN.BLA ---
Progress Note S: Comfortable with epidural; family bedside and supportive; agreeable to AROM after discussion of risks/benefits O: AVSS FHTs: 120 baseline, moderate variability, with accels, no decels UCs: Q 5 Cervix: 5.5/80/-2 A: 23yo at 39w3d gestation by 7w1d US Labor not progressing GBS negative, O positive blood type Cat 1 FHTs P: AROM for moderate amount of clear fluid Will recheck cervix in 2 hours, start Pitocin if no cervical change Dr. Patterson to assume care when patient C&P Anticipate vaginal delivery
--- NOTE | 2019-02-16 05:44 | PCM.PN.BLA ---
Progress Note S: Comfortable with epidural O: AVSS FHTs: 120 baseline, moderate variability, with accels, no decels UCs:Q 7 Cervix: unchanged A: Stalled labor Cat FHTs P: Start Pitocin, increase per protocol to achieve adequate labor
[2019-02-16] MEDS: Oxytocin 30 units/NS 500 ml 30 UNITS/500 ML IV.SOLN IV (05:49)
--- NOTE | 2019-02-16 09:53 | PCM.PN.BLA ---
Progress Note S: Comfortable with epidural; family and SO bedside and supportive O: AVSS FHTs: 115 baseline, moderate variability, with accels and early decels UCs: Q 2-3 Pitocin: 8mu Cervix: 9/90/0 per RN at 0928 A: Active labor, now processing normally with Pitocin Cat 1 FHTs P: Continue POC Dr. Astudillo covering for Dr. Patterson, assumes care at this time Anticipate vaginal delivery
[2019-02-16] MEDS: Oxytocin 30 units/NS 500 ml 30 UNITS/500 ML IV.SOLN 334 UNITS IV (10:50)
--- NOTE | 2019-02-16 11:03 | DCINST_ITS ---
Discharge Diet: No Restrictions Discharge Activity: May Shower, May Take a Tub Bath Return to work on:: 04/01/19 May resume sexual activity in: 4-6 weeks Additional Activity Instructions:: Nothing in the vagina for 4-6 weeks. You may return to work/school in 6 weeks. Additional Instructions: If you experience any of the following, contact your healthcare provider. * Bleeding that soaks a pad every hour for 2 hours * Fever 100.4 or higher * Unrelieved abdominal pain * Problems urinating (including inability to urinate or burning while urinating). * Visual changes * Severe headache * Flu-like symptoms * Pain or redness in one of both of your breasts * Pain, warmth, tenderness or swelling in your legs, especially the calf area * Frequent nausea and vomiting * Symptoms of depression or anxiety If you experience any of the following, call 911 or go to the nearest Emergency Room. * Chest pain * Problems breathing * Seizure activity * Partial or complete paralysis of a body part, slurred speech, weakness or drooping of the face, or a sudden inability to walk or hold your balance Allergies/Adverse Reactions: Allergies No Known Allergies Allergy (Verified 02/15/19 20:15) Medications to take at Discharge Pnv No.95/Ferrous Fum/Folic AC [ Vitamin Tablet] 1 ea PO DAILY 02/15/19 Please Follow Up With: Sandra Knutson, [place] - [phone] When: Call to make an appointment with your doctor in 6 weeks. If you had elevated Blood Pressure or 4th degree laceration you will need to be seen in 2 weeks. Primary Care Physician: Care Physician,No Primary [Primary Care Provider] - Test Results: Test results from this visit will be discussed in further detail at your follow- up appointment, if applicable. Proposed Discharge Date: 02/18/19
--- NOTE | 2019-02-16 11:03 | PCM.DCVAG ---
Discharge Diet: No Restrictions Discharge Activity: May Shower, May Take a Tub Bath Return to work on:: 04/01/19 May resume sexual activity in: 4-6 weeks Additional Activity Instructions:: Nothing in the vagina for 4-6 weeks. You may return to work/school in 6 weeks. Additional Instructions: If you experience any of the following, contact your healthcare provider. Bleeding that soaks a pad every hour for 2 hours Fever 100.4 or higher Unrelieved abdominal pain Problems urinating (including inability to urinate or burning while urinating). Visual changes Severe headache Flu-like symptoms Pain or redness in one of both of your breasts Pain, warmth, tenderness or swelling in your legs, especially the calf area Frequent nausea and vomiting Symptoms of depression or anxiety If you experience any of the following, call 911 or go to the nearest Emergency Room. Chest pain Problems breathing Seizure activity Partial or complete paralysis of a body part, slurred speech, weakness or drooping of the face, or a sudden inability to walk or hold your balance Allergies/Adverse Reactions: Allergies No Known Allergies Allergy (Verified 02/15/19 20:15) Medications to take at Discharge Pnv No.95/Ferrous Fum/Folic AC [ Vitamin Tablet] 1 ea PO DAILY 02/15/19 Please Follow Up With: Sandra Knutson, [facility] - [phone] When: Call to make an appointment with your doctor in 6 weeks. If you had elevated Blood Pressure or 4th degree laceration you will need to be seen in 2 weeks. Primary Care Physician: Care Physician,No Primary [Primary Care Provider] - Test Results: Test results from this visit will be discussed in further detail at your follow-up appointment, if applicable. Proposed Discharge Date: 02/18/19
--- NOTE | 2019-02-16 11:04 | PCM.OPRPT ---
Vaginal Delivery Maternal Presentation: Spontaneous Rupture of Membranes labor 38 3/7 wk SROM Amniotic Membrane Rupture Type: Spontaneous at home Amniotic Fluid Description: Clear Final CHRISTY: 02/20/19 Gestational age: 39 Weeks and 3 Days Date of Procedure: 02/16/19 Pre-Operative Diagnosis: 39 3/7 wk labor, SROM Augmentation Post-Operative Diagnosis: Same Surgery/ Procedure Performed: Spontaneous Vaginal Delivery Type of Anesthesia: Epidural Presentation: Vertex, ANGEL LUIS Placental Delivery Description: Spontaneous, Expressed Placenta Disposition: [facility] Cord Vessel Description: 3 Vessels Cord Entanglement: None Drain: Tong to straight drain Estimated Blood Loss: 300 A gender: Female (1 minute): 8 (5 minute): 9 Episiotomy Description: None Laceration: Midline, 1st degree - vaginal laceration. Bilateral abrasions at anterior perineum, hemostatic after pressure. Medications given after delivery: IV Pitocin Complications: None
[2019-02-16] MEDS: 0.9% Saline Lock 10 ML Syringe IV (13:19)
[2019-02-16 16:05] VITALS: BP 115/60; PULSE 66; RESP 16; TEMP 36.6
[2019-02-16] MEDS: Prenatal Vits Tablet 1 TABLET PO (18:13)
[2019-02-16] MEDS: Ferrous Sulfate 325 MG Tablet PO (18:16)
[2019-02-16 19:45] VITALS: BP 135/62; PULSE 88; RESP 16; TEMP 36.6; O2SAT 98
[2019-02-16 23:50] VITALS: BP 108/58; PULSE 75; RESP 18; TEMP 37.1
[2019-02-17] MEDS: Ibuprofen 600 MG Tablet PO ×2 (02:15→15:10)
[2019-02-17 03:00] VITALS: BP 104/54; PULSE 73; RESP 18; TEMP 36.6
[2019-02-17 05:41] LABS: Hematocrit 25.1 % (37-47); Hemoglobin 7.7 g/dL (12.0-15.0); Mean Corp Hgb Conc 30.7 g/dL (32-36); Mean Corpuscular Hgb 24.4 pg (27.0-32.0); Mean Corpuscular Volume 79.7 fL (81-99); Mean Platelet Vol. 9.9 fl (6.2-12.0); Platelet Count 198 K/mm3 (150-450); RBC Distribution Width CV 14.6 % (11.6-14.6); RBC Distribution Width SD 42.3 fl (35.1-43.9); Red Blood Count 3.15 M/mm3 (4.2-5.4)
[2019-02-17 09:05] VITALS: BP 118/67; PULSE 65; RESP 18; TEMP 36.4
[2019-02-17] MEDS: Prenatal Vits Tablet 1 TABLET PO (11:55)
[2019-02-17] MEDS: Ferrous Sulfate 325 MG Tablet PO ×2 (11:55→17:37)
[2019-02-17 14:00] VITALS: BP 112/63; PULSE 73; RESP 18; TEMP 36.5
--- NOTE | 2019-02-17 14:16 | PCM.PN.OB ---
Subjective: Pain well controlled, tolerating diet, passing flats, going well; has been unable to have bowel movement yet; denies s/s anemia; mother bedside and supportive; would like to be discharged home today if infant is cleared for discharge after assessment for increasing bilirubin levels; planning to use condoms for contraception while until able to go back on Nuvaring Objective: AVSS Breasts filling, nipples atraumatic fundus firm, midline, u/1, lochia small perineal repair well approximated, minimal edema, no erythema, ecchymosis or drainage noted - Physical Exam Vitals/I&O's: Vital Signs Temp Pulse Resp BP Pulse Ox 97.5 F L 65 18 118/67 98 02/17/19 09:05 02/17/19 09:05 02/17/19 09:05 02/17/19 09:05 02/16/19 19:45 Oxygen Delivery Method Room Air Weight: 229 lb 8 oz Body Mass Index (BMI) 34.9 Intake and Output for Last 24 Hours 02/15/19 02/16/19 02/17/19 23:59 23:59 23:59 Intake Total 1292.34 / 1292.34 3403.34 / 3403.34 Output Total 1500 / 1500 Balance 1292.34 / 1292.34 1903.34 / 1903.34 General: Alert, Oriented x3, Cooperative, No apparent distress HEENT: PERRLA, EOMI Oral: Moist Mucosa Neck: Supple Lungs: Clear to auscultation, Normal air movement Cardiovascular: Regular rate, Regular Rhythm Abdomen: Bowel Sounds Present, Soft, Non Tender, Non-Distended, Passing Flatus Extremities: Capillary Refill Less than 3 Seconds, No Calf Tenderness, Edema - mild, non pitting, bilateral pedal, Peripheral Pulses Normal Skin: No rashes Musculoskeletal: No Tenderness to Palpation of Joints or Extremities Neurological: Cranial nerves II-XII grossly intact, Deep Tendon Reflexes 2+/4 and Symmetrical, Neuro grossly intact Psych/Mental Status: Normal Affect, Appropriate, Alert and oriented to time, place, person, mood and affect Laboratory Results 02/17/19 05:29: WBC 12.0 H, RBC 3.15 L, Hgb 7.7 L, Hct 25.1 L, MCV 79.7 L, MCH 24.4 L, MCHC 30.7 L, RDW Std Deviation 42.3, RDW Coeff of Santhosh 14.6, Plt Count 198, MPV 9.9 Current Medications Acetaminophen (Tylenol) 1,000 mg PO Q8H PRN PRN PRN Reason: Pain Score 1-3/10 Bisacodyl (Dulcolax) 10 mg RECTAL UD PRN PRN Reason: If no BM Dibucaine (Dibucaine) 1 applic TOPICAL TID PRN PRN; Protocol PRN Reason: Discomfort Ferrous Sulfate (Ferrous Sulfate) 325 mg PO 1200,1700 [facility] Last Admin: 02/17/19 11:55 Dose: 325 mg Documented by: Hydrocortisone (Hytone) 1 applic TOPICAL TID PRN PRN; Protocol PRN Reason: Discomfort Ibuprofen (Motrin) 600 mg PO Q6H PRN PRN PRN Reason: Pain Score 1-3/10 Last Admin: 02/17/19 02:15 Dose: 600 mg Documented by: Methylergonovine Maleate (Methergine) 0.2 mg IM X1 PRN PRN Reason: Excess bleeding/uterine atony Multivit/Folic Acid/Iron (Prenatabs Fa) 1 tablet PO DAILY@1200 [facility] Last Admin: 02/17/19 11:55 Dose: 1 tablet Documented by: Prochlorperazine Edisylate (Compazine Iv) 10 mg IV Q6H PRN PRN PRN Reason: NAUSEA/VOMITING Senna/Docusate Sodium (Senokot-S, Summer-Colace) 1 - 2 tablet PO DAILY PRN PRN PRN Reason: Constipation Simethicone (Mylicon) 80 mg PO PCHS PRN PRN Reason: Indigestion/Stomach pain Zolpidem Tartrate (Ambien (Generic)) 5 mg PO QHS PRN PRN PRN Reason: Insomnia Medical Necessity - Tobacco Use Smoking Status: Never smoker Assessment/Plan Assesment: 23yo G1 now P1001 delivered via at 39w3d gestation by 7w1d US PP Day #1, normal involution PP anemia, asymptomatic, otherwise normal PP course Plan: Discharge teaching completed Discharge home today, or tomorrow if infant is kept overnight Continue Iron supplementation BID RTO 6 weeks for PP checkup w/Dr. Astudillo
[2019-02-17 20:00] VITALS: BP 107/54; PULSE 64; RESP 16; TEMP 36.6
[2019-02-18 01:47] VITALS: BP 116/63; PULSE 75; RESP 16; TEMP 36.8
[2019-02-18 08:30] VITALS: BP 102/62; PULSE 73; RESP 16; TEMP 36.7
--- NOTE | 2019-02-18 08:31 | PCM.PN.OB ---
Subjective: Pain well controlled, tolerating diet, passing flatus, has had a bowel movement today; nursing well, and to be discharged by NBN today Objective: AVSS Breasts filling, nipples atraumatic Fundus firm, midline, u/2, lochia scant Perineal repair well approximated, no edema, redness or bruising noted - Physical Exam Vitals/I&O's: Vital Signs Temp Pulse Resp BP Pulse Ox 98.2 F 75 16 116/63 98 02/18/19 01:47 02/18/19 01:47 02/18/19 01:47 02/18/19 01:47 02/16/19 19:45 Oxygen Delivery Method Room Air Weight: 229 lb 8 oz Body Mass Index (BMI) 34.9 Intake and Output for Last 24 Hours 02/16/19 02/17/19 02/18/19 23:59 23:59 23:59 Intake Total 3403.34 / 3403.34 Output Total 1500 / 1500 Balance 1903.34 / 1903.34 General: Alert, Oriented x3, Cooperative, No apparent distress HEENT: PERRLA, EOMI Oral: Moist Mucosa Neck: Supple Lungs: Clear to auscultation, Normal air movement Cardiovascular: Regular rate, Regular Rhythm Abdomen: Bowel Sounds Present, Soft, Non Tender, Non-Distended, Passing Flatus Extremities: Capillary Refill Less than 3 Seconds, No Calf Tenderness, Edema - minimal, non pitting, bilateral pedal Skin: No rashes Musculoskeletal: No Tenderness to Palpation of Joints or Extremities Neurological: Cranial nerves II-XII grossly intact, Deep Tendon Reflexes 2+/4 and Symmetrical, Neuro grossly intact Psych/Mental Status: Normal Affect, Appropriate, Alert and oriented to time, place, person, mood and affect Current Medications Acetaminophen (Tylenol) 1,000 mg PO Q8H PRN PRN PRN Reason: Pain Score 1-3/10 Bisacodyl (Dulcolax) 10 mg RECTAL UD PRN PRN Reason: If no BM Dibucaine (Dibucaine) 1 applic TOPICAL TID PRN PRN; Protocol PRN Reason: Discomfort Ferrous Sulfate (Ferrous Sulfate) 325 mg PO 1200,1700 [facility] Last Admin: 02/17/19 17:37 Dose: 325 mg Documented by: Hydrocortisone (Hytone) 1 applic TOPICAL TID PRN PRN; Protocol PRN Reason: Discomfort Ibuprofen (Motrin) 600 mg PO Q6H PRN PRN PRN Reason: Pain Score 1-3/10 Last Admin: 02/17/19 15:10 Dose: 600 mg Documented by: Methylergonovine Maleate (Methergine) 0.2 mg IM X1 PRN PRN Reason: Excess bleeding/uterine atony Multivit/Folic Acid/Iron (Prenatabs Fa) 1 tablet PO DAILY@1200 [facility] Last Admin: 02/17/19 11:55 Dose: 1 tablet Documented by: Prochlorperazine Edisylate (Compazine Iv) 10 mg IV Q6H PRN PRN PRN Reason: NAUSEA/VOMITING Senna/Docusate Sodium (Senokot-S, Summer-Colace) 1 - 2 tablet PO DAILY PRN PRN PRN Reason: Constipation Simethicone (Mylicon) 80 mg PO PCHS PRN PRN Reason: Indigestion/Stomach pain Zolpidem Tartrate (Ambien (Generic)) 5 mg PO QHS PRN PRN PRN Reason: Insomnia Medical Necessity - Tobacco Use Smoking Status: Never smoker Assessment/Plan Assesment: 23yo G1 now P1001 delivered via at 39w3d gestation by 7w1d US PP Day #2, normal involution PP anemia, asymptomatic, otherwise normal PP course Plan: Discharge teaching reviewed, all questions answered Discharge home today Continue Iron supplementation BID RTO 6 weeks for PP checkup w/Dr. Astudillo
--- NOTE | 2019-02-18 11:08 | CASEMGMT ---
Social Work Assessment Labor and Delivery Unit Date of Referral: 02.18.2019 Time of Referral: 0803 Referred By: Dr. Hair Date of Intervention: 02.18.2019 Time of Intervention: 1030 Reason for Referral: resources History obtained from: medical records, other of baby (MOB) Don Godwin, and father of baby (FOB) Barry Godwin Household composition: MOB, FOB, and FOB?s older daughter every other weekend. No reported issues with home situation. Patient's parent/guardian status: MOB is age 24 and FOB is age 26, since 03.20.2018. No reports of or indication of domestic violence issues. FOB has an older daughter age 8 named Deirdre. baby is the first for MOB and FOB together and first for MOB. is to be named Yary, born on 02.16.2020. Medical History: PEDRITO is G1, P0 to 1 after delivering Yary. care good, starting in the first trimester. Yary born weighing 7 pounds 11 ounces, Apgars 8 and 9 at 1 and 5 minutes of life. Educational Status: No reported issues with reading, writing, or learning comprehension issues. 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 FOB works 3rd shift at [employer]. Supplies: Necessitated reported to be in place including car seat and safe sleep space. Childcare/Caregiver(s): MOB and FOB. Transportation: No reported issues. Programs/Agencies Involved: PEDRITO has Medicaid through [facility]. Will be going to [facility] after discharge. PEDRITO has a counselor named Laura at [facility] in [place], [place]. No other agency involvement. MOB agrees to [place] [facility]. Children Services/Legal Issues: None reported. Behavioral Health Issues: Mental Health History: MOB reports history of anxiety and did start to worry about depression during this so started with counseling to try and be proactive. MOB reports have found counseling helpful and will continue in the period. No reports of SI or HI history. Substance Use History: No indication of substance use. MOB has endorsed history of chewing tobacco. Family History: PEDRITO reports her sister had undiagnosed depression, did not want to take care of the baby and really disengaged. Drug Screens: Negative maternal screen on 07.05.2018. Family/Social Stressors: MOB reports worry about finances at times and will have reduced income while on maternity leave. MOB was worried about mood and anxiety issues during this as did not want to become like MOB?s sister. MOB reports she wants to be engaged with and care for her baby. Support Systems: MOB reports to have a good support system in FOB, MOB?s mother, and MOB?s in-laws. MOB reports to feel her help will be adequate. Depression/Shaken Baby/Safe Sleeping: Information given said topics. ASSESSMENT: Met with MOB and FOB tougher. MOB engage in conversation and reporting that just wanting to make sure that knows where can turn. Educated of need to update local S and [place] Medicaid of of baby so that baby can be added. Educated that while MOB is on maternity leave and with a reduced household income this can factor into ability to have continued benefits. MOB plans to go to WIC tomorrow and get those benefits too. MOB agreeable to [facility] referral and reports will take all the support she can get. MOB reports plan to stay in counseling with Laura, reporting that likes this counselor and trusts this woman, as well as sees counseling as an opportunity to get out of the house and keep a routine going. Educated MOB and FOB to some resources for mood and anxiety disorders. MOB and FOB accepted all resources offered. Emotional support and encouragement offered. No voiced concerns by nursing staff regarding mother/child bonding or interactions. MOB appropriate, attentive to baby, and good eye contact during social work visit. Interventions: [facility] referral submitted via the [facility]?s secure online web-based referral program. [facility] resources lists given, depression packet given, and handouts on safe sleeping/shaken baby preventions/[facility]. [facility] [place] Baby packet also given. PLAN: MOB and baby to home today with MOB to follow up with S and WIC. [facility] [place] contact MOB after home going. No other services requested or indicated. -KRISTINA Nielson, CHERYL
== END 2019-02-18 10:50 | disposition home or self-care (01) | DRG 560 ==
LOC: WPOUT 19:37
PROVIDERS: Advanced Practice Midwife; Admitting Provider Obstetrics & Gynecology; Referring Provider Obstetrics & Gynecology; Visit Provider Obstetrics & Gynecology
DX: O42.92 Full-term premature rupture of membranes, unspecified as to length of time between rupture and onset of labor (principal); O99.02 Anemia complicating childbirth; O99.03 Anemia complicating the puerperium; D64.9 Anemia, unspecified; O71.4 Obstetric high vaginal laceration alone; O71.82 Other specified trauma to perineum and vulva; O99.334 Smoking (tobacco) complicating childbirth; F17.220 Nicotine dependence, chewing tobacco, uncomplicated; Z3A.39 39 weeks gestation of pregnancy; Z37.0 Single live birth
CPT/HCPCS: 59025; 59050; 85025; 85027; 86850; 86900; 86901; 99218; J7120; A4216; G0378; J2405

== ENCOUNTER → 2020-02-27 15:33 | Outpatient (CLI) | payer MEDICAID, SELFPAY ==
[2020-02-27 14:56] VITALS: BMI 35.4
[2020-02-27 16:42] LABS: hCG Titer Quant., Serum 2454 mIU/mL (1-3)
[2020-03-03 03:06] LABS: Chlamydia By Nucleic Acid AMP Negative (Negative)
[2020-03-03 11:17] LABS: Gonococcus By Nucleic Acid AMP Negative (Negative)
[2020-03-03 11:26] LABS: HPV Reflexed? NOT INDICATED
== END ==
PROVIDERS: Referring Provider Obstetrics & Gynecology; Visit Provider Obstetrics & Gynecology
DX: Z34.90 Encounter for supervision of normal pregnancy, unspecified, unspecified trimester (principal); Z12.4 Encounter for screening for malignant neoplasm of cervix; Z11.3 Encounter for screening for infections with a predominantly sexual mode of transmission
CPT/HCPCS: 36415; 84702; 87491; 87591; 88175; G0145

== ENCOUNTER → 2020-02-28 10:51 | Outpatient (CLI) | payer MEDICAID, SELFPAY ==
[2020-02-27 14:56] VITALS: BMI 35.4
--- NOTE | 2020-02-28 10:53 | US_ITS ---
STUDY: FIRST TRIMESTER OBSTETRICAL ULTRASOUND REASON FOR EXAM: Female, 24 years old viability LMP: Unknown TECHNIQUE: Transvaginal TECHNICAL QUALITY: Adequate. PRIOR ULTRASOUND: None. FINDINGS: There is visualization of a single gestational sac in a normal intrauterine position. The mean sac diameter (MSD) measures 4 mm, indicating an estimated gestational age (EGA) of 4 weeks, 5 days. The gestational sac shape is within normal limits. There is no demonstrated yolk sac. The placenta is non-visualized. There is no demonstrated embryo ( pole). The estimated gestation age (EGA) by US is 4 weeks, 5 days. The estimated date of delivery (CHRISTY) by US is 11/01/2020. The uterus measures 9 cm x 7 cm x 4.6 cm. There is no demonstrated uterine fibroid. The cervix is closed. The right ovary measures 3.4 cm x 2.1 cm x 2.5 cm. There is no right ovarian cyst. There is no visualized right adnexal mass or complex lesion. The left ovary measures 4.1 cm x 2.4 cm x 2.9 cm. There is no left ovarian cyst. There is no visualized left adnexal mass or complex lesion. There is no fluid in the cul de sac. US/Init OB < 14Wks US IMPRESSION: Intrauterine gestational sac with a mean gestational age of 4 weeks and 5 days. Electronically Signed: Rolando Guerrero, at 12:28 EST , Service support ,
== END ==
PROVIDERS: Referring Provider Nurse Practitioner Women's Health; Visit Provider Nurse Practitioner Women's Health
DX: Z34.81 Encounter for supervision of other normal pregnancy, first trimester (principal)
CPT/HCPCS: 76801

== ENCOUNTER → 2020-02-29 09:11 | Outpatient (CLI) | payer MEDICAID, SELFPAY ==
[2020-02-27 14:56] VITALS: BMI 35.4
[2020-02-29 10:27] LABS: hCG Titer Quant., Serum 4537 mIU/mL (1-3)
== END ==
PROVIDERS: Visit Provider Obstetrics & Gynecology
DX: Z34.90 Encounter for supervision of normal pregnancy, unspecified, unspecified trimester (principal)
CPT/HCPCS: 36415; 84702

== ENCOUNTER → 2020-03-12 07:58 | Outpatient (CLI) | payer MEDICAID, SELFPAY ==
[2020-02-27 14:56] VITALS: BMI 35.4
[2020-03-02 10:32] VITALS: BMI 35.4
--- NOTE | 2020-03-12 07:59 | US_ITS ---
STUDY: FIRST TRIMESTER OBSTETRICAL ULTRASOUND REASON FOR EXAM: Female, 24 years old viability LMP: 01/25/2020. TECHNIQUE: Transvaginal TECHNICAL QUALITY: Adequate. PRIOR ULTRASOUND: Comparison is made with prior study dated 02/28/2020. FINDINGS: There is visualization of a single gestational sac in a normal intrauterine position. The mean sac diameter (MSD) measures 2.6 cm, indicating an estimated gestational age (EGA) of 7 weeks, 4 days. The gestational sac shape is within normal limits. There is a visualized yolk sac. The yolk sac measures 2 mm. The placenta is non-visualized. There is visualization of a live embryo. The crown-rump length (CRL) measures 7 mm, indicating an estimated gestational age (EGA) of 6 weeks, 4 days. There is demonstrated cardiac activity with a heart rate of 120 bpm. The estimated gestation age (EGA) by LMP is 6 weeks, 5 days. The estimated date of delivery (CHRISTY) by LMP is 10/31/2020. The estimated gestation age (EGA) by US is 7 weeks, 0 days. The estimated date of delivery (CHRISTY) by US is 10/29/2020. The uterus measures 9.5 cm x 7.7 cm x 5.5 cm. There is no demonstrated uterine fibroid. The cervix is closed. The right ovary measures 2.6 cm x 2.3 cm x 2.3 cm. There is no right ovarian cyst. There is no visualized right adnexal mass or complex lesion. The left ovary measures 3.6 cm x 2.5 cm x 2.8 cm. There is no left ovarian cyst. There is no visualized left adnexal mass or complex lesion. There is no fluid in the cul de sac. US/Transvaginal w/Preg US IMPRESSION: Single live intrauterine gestation with a mean gestational age of 7 weeks. Electronically Signed: Rolando Guerrero, at 10:07 EST , Service support ,
== END ==
PROVIDERS: Referring Provider Obstetrics & Gynecology; Visit Provider Obstetrics & Gynecology
DX: Z36.89 Encounter for other specified antenatal screening (principal)
CPT/HCPCS: 76817

== ENCOUNTER → 2020-03-25 | Outpatient (CLI) | payer MEDICAID, SELFPAY ==
[2020-03-25 13:53] VITALS: BMI 34.1
[2020-03-30 18:46] LABS: Chlamydia By Nucleic Acid AMP NEGATIVE; Gonococcus By Nucleic Acid AMP NEGATIVE; HPV Reflexed? NOT INDICATED
== END | disposition home or self-care (01) ==
LOC: LABSPEC 16:45
PROVIDERS: Referring Provider Obstetrics & Gynecology; Visit Provider Obstetrics & Gynecology
DX: Z12.4 Encounter for screening for malignant neoplasm of cervix (principal)
CPT/HCPCS: 87491; 87591; 88142

== ENCOUNTER → 2020-04-15 11:30 | Outpatient (CLI) | payer MEDICAID, SELFPAY ==
[2020-03-25 13:53] VITALS: BMI 34.1
[2020-04-15 12:03] LABS: Absolute Lymphocyte Count 1.31 X10^3/uL (0.83-4.51); Absolute Neutrophil Count 4.2 X10^3/uL (2.0-7.7); Basophil# 0.01 X10^3/uL; Basophil% 0.2 % (0-1); Eosinophil# 0.04 X10^3/uL; Eosinophils% 0.7 % (0-5); Hematocrit 37.6 % (37-47); Hemoglobin 12.3 g/dL (12.0-15.0); Lymphocyte # 1.31 X10^3/ul (4.0); Lymphocyte % 22.4 % (19-41); Mean Corp Hgb Conc 32.7 g/dL (32-36); Mean Corpuscular Hgb 26.9 pg (27.0-32.0); Mean Corpuscular Volume 82.1 fL (81-99); Mean Platelet Vol. 10.9 fl (6.2-12.0); Monocyte# 0.23 X10^3/uL; Monocyte% 3.9 % (0-10); NRBC Flagged by Analyzer 0 % (0-5); Neutrophil # 4.24 X10^3/uL (2.7-7.7); Neutrophil % 72.5 % (47-70); Platelet Count 215 K/mm3 (150-450); RBC Distribution Width CV 14.1 % (11.6-14.6); RBC Distribution Width SD 41.1 fl (35.1-43.9); Red Blood Count 4.58 M/mm3 (4.2-5.4); White Blood Count 5.9 K/mm3 (4.4-11.0)
[2020-04-15 12:34] LABS: Glucose Challenge Gest 1H 50g 134 mg/dL (70-140)
[2020-04-15 12:54] LABS: Amphetamine Urine VISTA NEGATIVE (<1000 ng/mL); Barbiturate Urine VISTA NEGATIVE (< 200 ng/mL); Benzodiazepine Urine VISTA NEGATIVE (< 200 ng/mL); Cocaine Urine VISTA NEGATIVE (< 300 ng/mL); Ecstacy Urine VISTA NEGATIVE (< 500 ng/mL); Methadone Urine VISTA NEGATIVE (< 300 ng/mL); PCP Urine VISTA NEGATIVE (< 25 ng/mL); THC Urine VISTA NEGATIVE (< 50 ng/mL); Vista UDS pH Range 5
[2020-04-15 13:11] LABS: HIV - WCH Non-Reactive (Nonreactive); Hepatitis B Surface Antigen Non-Reactive (Nonreactive); Hepatitis C Antibody Non-Reactive (Nonreactive); Rubella IgG Reactive (Nonreactive)
[2020-04-16 01:40] LABS: Rapid Plasmin Reagin (RPR) NONREACTIVE (NONREACTIVE)
== END ==
PROVIDERS: Obstetrics & Gynecology; Referring Provider Obstetrics & Gynecology; Visit Provider Obstetrics & Gynecology
DX: O99.210 Obesity complicating pregnancy, unspecified trimester (principal); Z3A.00 Weeks of gestation of pregnancy not specified
CPT/HCPCS: 36415; 80307; 82950; 85025; 86592; 86703; 86762; 86803; 86850; 86900; 86901; 87086; 87088; 87340

== ENCOUNTER → 2020-04-20 10:02 | Outpatient (CLI) | payer MEDICAID, SELFPAY ==
[2020-03-25 13:53] VITALS: BMI 34.1
[2020-04-20 10:39] LABS: Glucose GTT-Gestation. Fasting 86 mg/dL (<105)
[2020-04-20 11:58] LABS: Glucose GTT-Gestational 1 Hr 96 mg/dL (<190)
[2020-04-20 13:18] LABS: Glucose GTT-Gestational 2 Hr 88 mg/dL (<165)
[2020-04-20 14:45] LABS: Glucose GTT-Gestational 3 Hr 85 L (<145)
== END ==
PROVIDERS: Obstetrics & Gynecology; Referring Provider Obstetrics & Gynecology; Visit Provider Obstetrics & Gynecology
DX: O99.810 Abnormal glucose complicating pregnancy (principal); Z3A.00 Weeks of gestation of pregnancy not specified; Z13.1 Encounter for screening for diabetes mellitus
CPT/HCPCS: 36415; 82951; 82952

== ENCOUNTER → 2020-06-10 12:32 | Outpatient (CLI) | payer MEDICAID, SELFPAY ==
[2020-05-18 10:57] VITALS: BMI 32.8
--- NOTE | 2020-06-10 12:34 | US_ITS ---
STUDY: SECOND AND THIRD TRIMESTER OBSTETRICAL ULTRASOUND REASON FOR EXAM: Female, 24 years old anatomy ultrasound LMP: 01/26/2020. TECHNIQUE: Transabdominal and Transvaginal TECHNICAL QUALITY: Adequate. PRIOR ULTRASOUND: None. FINDINGS: There is a single intrauterine fetus. The fetus is in a variable presentation. There is demonstrated cardiac activity with a heart rate of 144 bpm. There is a normal amniotic fluid volume. The largest amniotic fluid pocket measures 3.3 cm. The amniotic fluid index (ORIN) is lower limits of normal. The placenta is fundal and right lateral in location. There are Grade 0 placental changes. The cervix measures 4.5 cm in length. The bilateral adnexal regions are normal. BIOMETRY: BPD: 4.34 cm: 19 weeks, 0 days HC: 16.08 cm: 18 weeks, 6 days AC: 14.69 cm: 19 weeks, 6 days FL: 3.1 cm: 19 weeks, 3 days CI: 77% FL/BPD: 71% FL/HC: FL/AC: 21% HC/AC: 1.09 age by current US: 19 weeks, 1 days. CHRISTY by current US: 11/03/2020. Estimated weight: 300 grams, +/- 46 grams, 60 %. age by prior US: 19 weeks, 6 days. CHRISTY by prior US: 10/29/2020. Age by LMP: 19 weeks, 3 days. CHRISTY by LMP: 11/01/2020. ANATOMY: Gender: Female Cranium: Normal lateral ventricles. Normal choroid plexus. Normal cerebellum. Normal cisterna magna. Limited visualization of the nose and lips. Chest: Normal 4-chamber heart. Abdomen/Pelvis: Normal diaphragm. Normal stomach. Normal abdominal wall. Normal cord insertion. Normal 3 vessel cord. Normal kidneys. Normal bladder. Spine: Normal cervical spine. Normal thoracic spine. Normal lumbar spine. Normal sacrum. Extremities: Normal bilateral upper extremities. Normal bilateral lower extremities. IMPRESSION: Single live intrauterine gestation with mean gestational age of 19 weeks and 6 days. The measurements obtained today following the normal expected range. Limited visualization of the nose and lips. Follow-up is recommended. Electronically Signed: Rolando Guerrero MD at 15:14 EDT , Service support , STUDY: TRANSVAGINAL SONOGRAM. REASON FOR EXAM: Female, 24 years old. Anatomy ultrasound TECHNIQUE: Transvaginal imaging was obtained to measure in the cervical length. COMPARISON: None. FINDINGS: The cervical length measures 4.5 cm. US/OB Anatomy Scan IMPRESSION: Cervical length measures 4.5 cm. Electronically Signed: Rolando Guerrero MD at 15:15 EDT , Service support ,
== END ==
PROVIDERS: PCP Student in an Organized Health Care Education/Training Program; Referring Provider Obstetrics & Gynecology; Visit Provider Obstetrics & Gynecology
DX: Z34.90 Encounter for supervision of normal pregnancy, unspecified, unspecified trimester (principal)
CPT/HCPCS: 76805; 76817

== ENCOUNTER → 2020-06-24 12:22 | Outpatient (CLI) | payer MEDICAID, SELFPAY ==
[2020-05-18 10:57] VITALS: BMI 32.8
[2020-06-19 13:52] VITALS: BMI 33.3
--- NOTE | 2020-06-24 12:23 | US_ITS ---
STUDY: SECOND AND THIRD TRIMESTER OBSTETRICAL ULTRASOUND - LIMITED REASON FOR EXAM: Female, 25 years old FU facial views LMP: 01/26/2020. PRIOR ULTRASOUND: 06/06/2020. TECHNIQUE: Transabdominal TECHNICAL QUALITY: Adequate. FINDINGS: There is a single intrauterine fetus. The fetus is in a transverse lie with the head on the maternal right side. There is demonstrated cardiac activity with a heart rate of 143 bpm. There is a normal amniotic fluid volume. The largest amniotic fluid pocket measures 4.5 cm. The placenta is fundal in location. This extends posteriorly with no previa. There is questionable succenturiate placental lobe. There are Grade 0 placental changes. The cervix measures 4.6 cm cm in length. The cervix is closed. Bilateral adnexal regions are not visualized. Age by LMP: 21 weeks, 3 days. CHRISTY by LMP: 11/01/2020. CHRISTY by prior US: 11/03/2020. Exam is performed as a follow-up from previous ultrasound 06/06/2020 to assess facial structures. The nose and lips are visualized . US/OB Limited (No Biometrics) IMPRESSION: Limited ultrasound examination with LMP age of 21 weeks and 3 days. Follow-up anatomy as described above. Posterior placenta is described above. Questionable succenturiate lobe seen anteriorly. Follow-up recommended may help if clinically indicated. Electronically Signed: Jazzy Platt MD at 5:24 EDT , Service support ,
== END ==
PROVIDERS: PCP Student in an Organized Health Care Education/Training Program; Referring Provider Obstetrics & Gynecology; Visit Provider Obstetrics & Gynecology
DX: Z34.92 Encounter for supervision of normal pregnancy, unspecified, second trimester (principal); Z3A.21 21 weeks gestation of pregnancy
CPT/HCPCS: 76815

== ENCOUNTER → 2020-08-14 12:17 | Outpatient (CLI) | payer MEDICAID, SELFPAY ==
[2020-07-20 14:03] VITALS: BMI 33.3
[2020-08-14 13:13] LABS: Absolute Lymphocyte Count 1.35 X10^3/uL (0.83-4.51); Absolute Neutrophil Count 6.4 X10^3/uL (2.0-7.7); Basophil# 0.03 X10^3/uL; Basophil% 0.4 % (0-1); Eosinophil# 0.06 X10^3/uL; Eosinophils% 0.7 % (0-5); Hematocrit 30.1 % (37-47); Hemoglobin 9.2 g/dL (12.0-15.0); Lymphocyte # 1.35 X10^3/ul (0.83-4.51); Mean Corp Hgb Conc 30.6 g/dL (32-36); Mean Corpuscular Hgb 25.5 pg (27.0-32.0); Mean Corpuscular Volume 83.4 fL (81-99); Mean Platelet Vol. 10.9 fl (6.2-12.0); Monocyte# 0.38 X10^3/uL; Monocyte% 4.5 % (0-10); NRBC Flagged by Analyzer 0 % (0-5); Neutrophil % 75.8 % (47-70); Platelet Count 216 K/mm3 (150-450); RBC Distribution Width SD 42.4 fl (35.1-43.9); Red Blood Count 3.61 M/mm3 (4.2-5.4); White Blood Count 8.4 K/mm3 (4.4-11.0)
[2020-08-14 13:36] LABS: Glucose Challenge Gest 1H 50g 123 mg/dL (70-140)
== END ==
PROVIDERS: PCP Student in an Organized Health Care Education/Training Program; Referring Provider Obstetrics & Gynecology; Visit Provider Obstetrics & Gynecology
DX: O99.212 Obesity complicating pregnancy, second trimester (principal); E66.9 Obesity, unspecified; Z13.1 Encounter for screening for diabetes mellitus; Z3A.00 Weeks of gestation of pregnancy not specified
CPT/HCPCS: 36415; 82950; 85025

== ENCOUNTER → 2020-09-11 13:33 | Outpatient (CLI) | payer MEDICAID, SELFPAY ==
[2020-09-11 13:07] VITALS: BMI 33.3
[2020-09-11 13:49] LABS: Absolute Lymphocyte Count 1.83 X10^3/uL (0.83-4.51); Basophil# 0.03 X10^3/uL; Basophil% 0.3 % (0-1); Eosinophil# 0.07 X10^3/uL; Eosinophils% 0.7 % (0-5); Hematocrit 29.6 % (37-47); Hemoglobin 9.1 g/dL (12.0-15.0); Lymphocyte # 1.83 X10^3/ul (0.83-4.51); Lymphocyte % 18.9 % (19-41); Mean Corp Hgb Conc 30.7 g/dL (32-36); Mean Corpuscular Hgb 24.3 pg (27.0-32.0); Mean Corpuscular Volume 79.1 fL (81-99); Mean Platelet Vol. 10.5 fl (6.2-12.0); Monocyte% 6.2 % (0-10); NRBC Flagged by Analyzer 0 % (0-5); Neutrophil % 72.2 % (47-70); Platelet Count 245 K/mm3 (150-450); RBC Distribution Width CV 14.3 % (11.6-14.6); Red Blood Count 3.74 M/mm3 (4.2-5.4); White Blood Count 9.7 K/mm3 (4.4-11.0)
== END ==
PROVIDERS: PCP Student in an Organized Health Care Education/Training Program; Referring Provider Obstetrics & Gynecology; Visit Provider Obstetrics & Gynecology
DX: O99.013 Anemia complicating pregnancy, third trimester (principal); Z3A.00 Weeks of gestation of pregnancy not specified
CPT/HCPCS: 36415; 85025

== ENCOUNTER → 2020-09-28 12:56 | Outpatient (CLI) | payer MEDICAID, SELFPAY ==
[2020-09-24 09:23] VITALS: BMI 33.3
[2020-09-28 13:15] VITALS: BP 118/75; PULSE 73; RESP 16; TEMP 36.4; O2SAT 98
[2020-09-28] MEDS: 0.9% NaCl IVPB Med Flush (250 mL) 15 ML IV (13:40)
[2020-09-28 16:05] VITALS: BP 121/62; PULSE 90; RESP 16; TEMP 36.6; O2SAT 99
== END ==
PROVIDERS: PCP Student in an Organized Health Care Education/Training Program; Referring Provider Nurse Practitioner Women's Health; Visit Provider Nurse Practitioner Women's Health
DX: O99.013 Anemia complicating pregnancy, third trimester (principal)
CPT/HCPCS: 96365; 96366; J1756; J7050; A4216

== ENCOUNTER → 2020-10-05 13:01 | Outpatient (CLI) | payer MEDICAID, SELFPAY ==
[2020-09-24 09:23] VITALS: BMI 33.3
[2020-10-05 13:15] VITALS: BP 112/71; PULSE 87; RESP 16; TEMP 36.3; O2SAT 98
[2020-10-05] MEDS: 0.9% NaCl IVPB Med Flush (250 mL) 15 ML IV (13:15)
[2020-10-05] MEDS: 0.9% NaCl Peripheral Flush Adult/Peds IV (13:15)
[2020-10-05 15:09] VITALS: BP 110/72; PULSE 82; RESP 16; TEMP 36.4; O2SAT 99
== END ==
PROVIDERS: PCP Student in an Organized Health Care Education/Training Program; Referring Provider Nurse Practitioner Women's Health; Visit Provider Nurse Practitioner Women's Health
DX: O99.013 Anemia complicating pregnancy, third trimester (principal); D64.9 Anemia, unspecified; Z3A.00 Weeks of gestation of pregnancy not specified
CPT/HCPCS: 96365; J1756; J7050; A4216

== ENCOUNTER → 2020-10-12 12:47 | Outpatient (CLI) | payer MEDICAID, SELFPAY ==
[2020-09-24 09:23] VITALS: BMI 33.3
[2020-10-12 12:51] VITALS: BP 119/75; PULSE 90; RESP 16; TEMP 36.4; O2SAT 99; BMI 33.9
[2020-10-12] MEDS: 0.9% NaCl IVPB Med Flush (250 mL) 15 ML IV (13:00)
[2020-10-12] MEDS: 0.9% NaCl Peripheral Flush Adult/Peds IV (13:00)
[2020-10-12 14:50] VITALS: BP 121/60; PULSE 83; RESP 14; TEMP 36.9; O2SAT 97
== END ==
PROVIDERS: PCP Student in an Organized Health Care Education/Training Program; Referring Provider Nurse Practitioner Women's Health; Visit Provider Nurse Practitioner Women's Health
DX: O99.019 Anemia complicating pregnancy, unspecified trimester (principal); D64.9 Anemia, unspecified; Z3A.00 Weeks of gestation of pregnancy not specified
CPT/HCPCS: 96365; 96366; J1756; J7050; A4216

== ENCOUNTER → 2020-10-13 | Outpatient (CLI) | payer MEDICAID, SELFPAY ==
[2020-10-13 09:01] VITALS: BMI 33.9
== END | disposition home or self-care (01) ==
PROVIDERS: PCP Student in an Organized Health Care Education/Training Program; Visit Provider Obstetrics & Gynecology
DX: Z36.85 Encounter for antenatal screening for Streptococcus B (principal)
CPT/HCPCS: 87081

== ENCOUNTER 2020-10-19 13:25 | Inpatient (IN) | payer MEDICAID, SELFPAY ==
[2020-10-19] VITALS (18 sets, daily range): BP systolic 100–114; BP diastolic 55–67; PULSE 65–83; RESP 14–18; TEMP 36.1–36.7; O2SAT 97–100; BMI 33.9; BMI 35.7
--- NOTE | 2020-10-19 | FALS_PTH ---
PATIENT: RENNY LAM LOC: [facility] U#:[id number] AGE/SX: 25/F ROOM: WP004 RE10/19/[address]: Dr. Wilda Parada MD : 1995 BED: 1 DIS: 10/21/2020 SPEC #: [id number] RECD: 10/19/20 20:20 STATUS: SYL FLORES #: [id number] ABHILASH: 10/19/20 00:[address]: Wilda Parada DEPT: SURGICAL PATHOLOGY RECD BY: Gus Beal ENTERED: 10/20/20 08:06 SP TYPE: FALL TUBES OTHR DR: Dr. Rubén Ponce DO Tissues: Fallopian tube Procedures: Surgery Specimen Level II HEADER OPERATION: Tubal ligation PRE-OP DIAGNOSIS: Sterilization TISSUE SUBMITTED: Fallopian tubes, suture in left tube MICROSCOPIC DIAGNOSIS Bilateral fallopian tubes, salpingectomy: Bilateral fallopian tubes, no pathologic diagnosis. Left paratubal cyst. SJ:diogo 10/21/2020 MICROSCOPIC DESCRIPTION Slides are reviewed. GROSS DESCRIPTION Received in fixative is one container labeled with the patient's name and designated bilateral fallopian tubes, suture in left tube. The specimen consists of bilateral fallopian tubes including fimbrial ends. The right fallopian tube measures 6.5 cm in length and 1 cm in diameter and the left fallopian tube measures 7 cm in length and 1 cm in diameter. The left fallopian tube shows a paratubal cyst measuring 0.5 cm in greatest dimension. Sections reveal unremarkable cut surfaces. Manager Truck sections are submitted in two cassettes as follows: 1 ? right fallopian tube, 2 ? left fallopian tube and paratubal cyst. / KATJA:diogo 10/20/20 TC:5 CPT: 97024 x2
[2020-10-19 10:42] LABS: Absolute Lymphocyte Count 1.65 X10^3/uL (0.83-4.51); Absolute Neutrophil Count 6.3 X10^3/uL (2.0-7.7); Basophil# 0.03 X10^3/uL; Basophil% 0.3 % (0-1); Eosinophil# 0.04 X10^3/uL; Eosinophils% 0.5 % (0-5); Hematocrit 35.3 % (37-47); Hemoglobin 10.7 g/dL (12.0-15.0); Lymphocyte # 1.65 X10^3/ul (0.83-4.51); Lymphocyte % 19.2 % (19-41); Mean Corp Hgb Conc 30.3 g/dL (32-36); Mean Corpuscular Hgb 24.7 pg (27.0-32.0); Mean Corpuscular Volume 81.5 fL (81-99); Mean Platelet Vol. 10.2 fl (6.2-12.0); Monocyte# 0.47 X10^3/uL; Monocyte% 5.5 % (0-10); NRBC Flagged by Analyzer 0 % (0-5); Neutrophil # 6.26 X10^3/uL (2.7-7.7); Neutrophil % 72.8 % (47-70); POSITIVE MORPHOLOGY YES; Platelet Count 204 K/mm3 (150-450); RBC Distribution Width CV 23.4 % (11.6-14.6); RBC Distribution Width SD 65.8 fl (35.1-43.9); Red Blood Count 4.33 M/mm3 (4.2-5.4); White Blood Count 8.6 K/mm3 (4.4-11.0)
[2020-10-19 10:44] LABS: Differential Indicated SCAN CRITERIA MET
[2020-10-19 10:56] LABS: ROM Internal Control Test YES-OK TO RESULT pt. (Internal QC)
[2020-10-19 10:59] LABS: ROM Patient Test POSITIVE (Negative)
[2020-10-19 11:01] LABS: Differential Comment SCANNED
[2020-10-19 11:02] LABS: Anisocytosis 2+; Macrocytosis 1+; Microcytosis 1+
[2020-10-19] MEDS: Lactated Ringers 1,000 ML 50 ML IV (15:10)
[2020-10-19] MEDS: Oxytocin 30 units/NS 500 ml 30 UNITS/500 ML IV.SOLN IV (15:10)
[2020-10-19 15:32] LABS: Absolute Lymphocyte Count 1.76 X10^3/uL (0.83-4.51); Basophil# 0.03 X10^3/uL; Basophil% 0.3 % (0-1); Eosinophil# 0.04 X10^3/uL; Eosinophils% 0.4 % (0-5); Hematocrit 34.8 % (37-47); Hemoglobin 10.6 g/dL (12.0-15.0); Lymphocyte # 1.76 X10^3/ul (0.83-4.51); Lymphocyte % 18.6 % (19-41); Mean Corp Hgb Conc 30.5 g/dL (32-36); Mean Corpuscular Hgb 25.1 pg (27.0-32.0); Mean Corpuscular Volume 82.3 fL (81-99); Mean Platelet Vol. 11.4 fl (6.2-12.0); Monocyte# 0.44 X10^3/uL; Monocyte% 4.7 % (0-10); NRBC Flagged by Analyzer 0 % (0-5); Neutrophil # 7.02 X10^3/uL (2.7-7.7); Neutrophil % 74.2 % (47-70); POSITIVE MORPHOLOGY YES; Platelet Count 214 K/mm3 (150-450); RBC Distribution Width CV 23.4 % (11.6-14.6); RBC Distribution Width SD 65.7 fl (35.1-43.9); Red Blood Count 4.23 M/mm3 (4.2-5.4); White Blood Count 9.5 K/mm3 (4.4-11.0)
[2020-10-19 15:34] LABS: Differential Indicated SCAN CRITERIA MET
[2020-10-19] MEDS: Lactated Ringers 1,000 ML 999 ML IV (18:10)
[2020-10-19] MEDS: Acetaminophen 500 MG Tablet 1000 MG PO (18:25)
[2020-10-19] MEDS: Sodium Citrate/Citric Acid 30 ML UDC PO (18:26)
[2020-10-19 18:38] LABS: Xtra Tube EP Lab EXTRA TUBE
--- NOTE | 2020-10-19 18:38 | HP.PCM.OB_ITS ---
HPI - General General Date of Admission: 10/19/20 HPI Narrative RENNY LAM, is a 25 F who presents with premature rupture membranes. Patient was seen in the office today and found to be 2 to 3 cm dilated with no visible pooling but ROM plus was positive. Maternal Data Information CHRISTY Calculator Estimated Delivery Date Method Current WG Current Estimate 11/01/20 Ultrasound #1 38w 1d Other Estimates 10/09/20 LMP (Certain) 41w 3d PFSH PFSH Medical History (Updated 10/19/20 @ 18:[address] Wilda Parada MD) Anxiety and depression Chlamydia Irregular menstrual cycle Home Medications PNV cmb#95-ferrous fumarate-FA 1 ea PO DAILY 02/15/19 [History Last Taken 02/15/19 07:00 1 tab] promethazine 12.5 mg tablet 12.5 mg PO Q6H PRN #30 tab 03/25/20 [Rx Last Taken 08/20/20 01/18/2019] hydroxyzine pamoate 50 mg capsule 50 mg PO TID-QID PRN #60 cap 07/20/20 [Rx Last Taken 07/19/19] sertraline [Zoloft] 100 mg PO DAILY 10/19/20 [History Last Taken 06/18/20] Allergy/AdvReac Type Severity Reaction Status Date / Time No Known Allergies Allergy Verified 10/12/20 12:55 Surgical History H/O elbow surgery Social History adopted: No household members: family housing: house number of children: 1 current occupational status: employed current occupation: [employer] pets and animals: Yes Smoking Status: Never smoker second hand exposure: Yes alcohol intake: current details: not while substance use type: does not use seatbelt use: always do you feel safe at home: Yes additional social history: - Barry (STEPHENIE) History 2 Elective abortions Hx Para 1 Spontaneous abortions Hx # Term Pregnancies Ectopic pregnancies Hx # Pregnancies Multiple births # of living children 1 Past Pregnancies Del. Date Name GA/Weeks Outcome Route Bth Weight Gen Labor Lgth Anesthesia Del Locatn Provider FOB 02/16/19 Minor 39 live - full term 7lbs 11oz Fema le 29 hours epidural [facility] EB Barry Delivery Date: 02/16/19 no complications Colette Tang Visit Details Expected Delivery Route/Plan Labor Preferences- labor support person: Barry, sister Cira (sm delivered 2 kids for her) labor intervention preferences: minimal, mirror pain management options preferred: Epidural cut cord/dad catch: yes : yes PP control planned: [] discussed possible routes of delivery and associated risks: [] special requests: [] Plans covid vaccine: non immune flu vaccine: neg tdap vaccine: 08/14 rhogam: na LARC form signed: vasectomy, nuvaring movement and labor precautions reviewed. Problem list reviewed and updated with the most current plan of care details and appropriate orders placed. Relevant counseling for the gestational age provided. Continue routine care and follow up unless otherwise noted in visit notes/problem list details OB Flowsheet Initial Weight: 235 lb Date -?-?-?-?-?-?-?-?-?-?-?-?- EGA Weight BP Urine Prot -?-?-?-?-?-?-?-?-?-?-?-?- Glucose FHR FuHt Pres Dilation -?-?-?-?-?-?-?-?-?-?-?-?- Effaced St Visit Note 02/27/20 -?-?-?-?-?-?-?-?-?-?-?-?- 4w 4d 233 lb (-2 lb) -?-?-?-?-?-?-?-?-?-?-?-?- -?-?-?-?-?-?-?-?-?-?-?-?- thicken uterine lining no GS seen no adnexal masses, has irregular menses recommend serial hcgs and determine fu 03/25/20 -?-?-?-?-?-?-?-?-?-?-?-?- 8w 3d 224 lb 6 oz (-10 lb 10 oz) 114/80 -?-?-?-?-?-?-?-?-?-?-?-?- 185 -?-?-?-?-?-?-?-?-?-?-?-?- GP - dated by US on 03/12. Due date adjusted. Undecided on genetic testing. Will return and do GCT with NOB blood work. 04/20/20 -?-?-?-?-?-?-?-?-?-?-?-?- 12w 1d 218 lb (-17 lb) 114/78 -?-?-?-?-?-?-?-?-?-?-?-?- 155 -?-?-?-?-?-?-?-?-?-?-?-?- SM- no vb crampi ng feeling good nl 3 hr gtt today 05/18/20 -?-?-?-?-?-?-?-?-?-?-?-?- 16w 1d 216 lb (-19 lb) 130/60 -?-?-?-?-?-?-?-?-?-?-?-?- 140 -?-?-?-?-?-?-?-?-?-?-?-?- SM- no vb lof cr maping, got DASILVA with higher zoloft, will decrease to 50 mg daily 06/19/20 -?-?-?-?-?-?-?-?-?-?-?-?- 20w 5d 219 lb 4 oz (-15 lb 12 oz) 118/68 Negative -?-?-?-?-?-?-?-?-?-?-?-?- Negative 145 -?-?-?-?-?-?-?-?-?-?-?-?- GP - no LOF, VB, DFM, ctx. Anatomy nl aside from need f/u lip and nose views. 07/20/20 -?-?-?-?-?-?-?-?-?-?-?-?- 25w 1d 222 lb (-13 lb) 120/68 Negative -?-?-?-?-?-?-?-?-?-?-?-?- Negative 140 25 -?-?-?-?-?-?-?-?-?-?-?-?- SM- no vb lof go od fm no regular ctx 08/14/20 -?-?-?-?-?-?-?-?-?-?-?-?- 28w 5d 227 lb 4 oz (-7 lb 12 oz) 94/56 Negative -?-?-?-?-?-?-?-?-?-?-?-?- Negative 150 28 -?-?-?-?-?-?-?-?-?-?-?-?- GP - no LOF, VB, DFM, ctx. Passed GCT. Hb 9 - recommend iron. TDAP given. 09/11/20 -?-?-?-?-?-?-?-?-?-?-?-?- 32w 5d 229 lb (-6 lb) 120/86 Negative -?-?-?-?-?-?-?-?-?-?-?-?- Negative 150 32 -?-?-?-?-?-?-?-?-?-?-?-?- SM- no vb lof go od fm no regular ctx, cbc today. considering sterilization title 19 and larc signed 09/24/20 -?-?-?-?-?-?-?-?-?-?-?-?- 34w 4d 230 lb (-5 lb) 120/82 Negative -?-?-?-?-?-?-?-?-?-?-?-?- Negative 150 34 -?-?-?-?-?-?-?-?-?-?-?-?- SM- no vb lof go od fm no regualr ctx 10/13/20 -?-?-?-?-?-?-?-?-?-?-?-?- 37w 2d 233 lb (-2 lb) 98/76 Negative -?-?-?-?-?-?-?-?-?-?-?-?- Negative 150 37 Cephalic 1 -?-?-?-?-?-?-?-?-?-?-?-?- 0 -4 SM- no vb lof good fm no regular ctx 10/19/20 -?-?-?-?-?-?-?-?-?-?-?-?- 38w 1d 237 lb (+2 lb) 122/76 Negative -?-?-?-?-?-?-?-?-?-?-?-?- Negative 140 38 Cephalic 2 -?-?-?-?-?-?-?-?-?-?-?-?- 40 -3 SM- no vb questionable LOF, no regular ctx. good fm 10/19/20 -?-?-?-?-?-?-?-?-?-?-?-?- 38w 1d 235 lb (+0 oz) 109/64 109/64 113/59 -?-?-?-?-?-?-?-?-?-?-?-?- -?-?-?-?-?-?-?-?-?-?-?-?- NST FHR Rate Baby A Baseline: 130 Variability:: Moderate Accelerations:: 15 x 15 Decelerations:: None NST Reactive:: Yes FHR Category:: Category I Uterine Activity:: irregular ROS Constitutional Constitutional: Reports systems reviewed and no addt'l complaints, except as documented Eyes Eyes: Denies change in vision ENT HEENT: Reports systems reviewed and no addt'l complaints, except as documented; Denies headache(s) Cardiovascular Cardiovascular: Reports systems reviewed and no addt'l complaints, except as documented; Denies chest pain or dyspnea Respiratory/Chest Respiratory/Chest: Reports systems reviewed and no addt'l complaints, except as documented Gastrointestinal Gastrointestinal: Reports systems reviewed and no addt'l complaints, except as documented; Denies abdominal pain Genitourinary Genitourinary: Reports systems reviewed and no addt'l complaints, except as documented, contractions Details: present (irregular) and movement Details: present; Denies dysuria or genital lesions Musculoskeletal Musculoskeletal: Reports systems reviewed and no addt'l complaints, except as documented Neurologic Neurologic: Reports systems reviewed and no addt'l complaints, except as documented Endocrine Endocrinology: Reports systems reviewed and no addt'l complaints, except as documented Vital Signs Vital Signs Vital Signs: 10/19/20 14:19 10/19/20 14:20 10/19/20 14:25 Temperature 97.3 F L 97.4 F L Temperature Source Temporal Pulse Rate 76 76 Blood Pressure 109/64 109/64 BP Systolic 109 109 BP Diastolic 64 64 10/19/20 15:34 10/19/20 15:36 10/19/20 15:46 Temperature 97.3 F L 97.3 F L Temperature Source Tympanic Pulse Rate 73 Blood Pressure 113/59 L BP Systolic 113 BP Diastolic 59 Weight Weight: 235 lb Body Mass Index (BMI) 35.7 Physical Exam Const alert, oriented x3, no apparent distress and healthy appearing HEENT normocephalic and moist oral mucous membranes Head and Scalp: atraumatic Neck full ROM, no lymphadenopathy, supple and thyroid normal General: trachea midline Lymph Lymphatic: no lymphadenopathy noted Chest inspection of chest normal Resp normal respiratory effort Cardio regular rate GI normal to inspection, nondistended, normoactive bowel sounds, soft to palpation and non-tender Inspection: gravid external exam normal Manual OB Exam: estimated gestational size appropriate, presentation cephalic, dilated, effaced and station Extremity normal to inspection General Extremity: Negative for edema Skin no rashes or lesions noted Neuro no focal motor deficits and deep tendon reflexes 2+ bilaterally Motor Exam: strength 5/5 throughout and clonus absent Psych mental status grossly normal Labs Labs Labs: Blood Type O POSITIVE Antibody Screen NEGATIVE Hct 34.8 % (37-47) L Hgb 10.6 g/dL (12.0-15.0) L Obstetrics US Rubella IgG Antibody Reactive (Nonreactive) Hep Bs Antigen Non-Reactive (Nonreactive) Neisseria gonorrhoeae DNA (CRISTIN) NEGATIVE HIV 1&2 Antibody Non-Reactive (Nonreactive) C.trachomatis DNA (PCR) Negative (Negative) Glucose 1 Hr 50 gm 123 mg/dL (70-140) Rhogam given: No Assessment & Plan (1) : QUALIFIERS: Weeks of gestation: 38 weeks Qualified Code(s): Z3A.38 - 38 weeks gestation of COMMENT: declines genetic, carrier and AFP, nl anatomy repeat with possible succenturiate lobe (2) Supervision of other normal : COMMENT: PRR CHRISTY 10/09/20 girl Hallie PC: Minor Spouse: Barry (Su age 9) (3) Obesity affecting : QUALIFIERS: Trimester: second trimester Qualified Code(s): O99.212 - Obesity complicating , second trimester COMMENT: 1 tm glucola, encouraged healthy weight gain (4) Abnormal glucose affecting : COMMENT: nl 3 hr gtt (5) Anemia affecting in third trimester: COMMENT: failed oral therapy recommend IV (6) Anxiety and depression: COMMENT: h/o anxiety prior to first ; PPD after having dght. plan on zoloft after delivery. vistaril PRN (7) PROM (premature rupture of membranes): PLAN: Admit and induction of labor with Pitocin
--- NOTE | 2020-10-19 18:39 | PCM.PN.BLA ---
Progress Note Patient evaluated now 3 to 4 cm. Upon examination different parts were palpated and therefore bedside ultrasound was done and confirmed that infant had flipped to breech. Part of amniotic sac still palpated to be intact vaginally. Decision made to proceed with primary low transverse
--- NOTE | 2020-10-19 18:40 | OP.PCM_ITS ---
Assessment & Plan (1) PROM (premature rupture of membranes): (2) : QUALIFIERS: Weeks of gestation: 38 weeks Qualified Code(s): Z3A.38 - 38 weeks gestation of COMMENT: declines genetic, carrier and AFP, nl anatomy repeat with possible succenturiate lobe (3) Supervision of other normal : COMMENT: PRR CHRISTY 10/09/20 isabelle Sterling PC: Patrickshericemichael Spouse: Barry (Su age 9) (4) Obesity affecting : QUALIFIERS: Trimester: second trimester Qualified Code(s): O99.212 - Obesity complicating , second trimester COMMENT: 1 tm glucola, encouraged healthy weight gain (5) Abnormal glucose affecting : COMMENT: nl 3 hr gtt (6) Anemia affecting in third trimester: COMMENT: failed oral therapy recommend IV (7) Anxiety and depression: COMMENT: h/o anxiety prior to first ; PPD after having dght. plan on zoloft after delivery. vistaril PRN. 10/20 restart zoloft 50mg daily (8) Breech presentation: (9) Sterilization: COMMENT: maribel 19 signed 09/11/20 Maternal Data Information CHRISTY Calculator Estimated Delivery Date Method Current WG Current Estimate 11/01/20 Ultrasound #1 38w 2d Other Estimates 10/09/20 LMP (Certain) 41w 4d Final CHRISTY Source: LMP Gestational age: 39 Details Operative Information Date of Procedure: 10/19/20 Pre-Operative Diagnosis: SROM breech Post-Operative Diagnosis: same Indications for : Breech and Malpresentation Classification: AMANDO Procedure Type: bilateral salpingectomy radiation control specialist #1: Gisel Branch Type of Anesthesia: Spinal Special Medications: none Drain: Tong to straight drain Fluids Replaced: crystalloid Findings Description of Procedure: The patient was placed in the dorsal supine position with leftward tilt. Patient was prepped and draped in the normal sterile fashion. Pfannenstiel skin incision was made with the scalpel and carried through to the underlying layer of fascia with the scalpel. Fascia was nicked in the midline and the incision extended laterally. The rectus bellies were dissected off superiorly and inferiorly with out complication both sharply and bluntly. The peritoneum was entered digitally. The incision was stretched and a low transverse uterine incision was made with the scalpel. The infant's buttocks was delivered atraumatically followed by the right and left leg body and the anterior and posterior shoulders without complication the rest of the delivered. The cord was clamped and cut and the infant was handed off to awaiting nurse. The placenta was delivered spontaneously immediately following and was noted to be intact and have a three-vessel cord. The uterus was exteriorized cleared of all clots and debris, and the incision was closed in a single layer closure using #1 Monocryl. The ovaries and fallopian tubes were noted to be within normal limits. Patient had desired sterilization and was counseled preoperatively regarding irreversibility and permanency. Therefore bilateral fallopian tubes were elevated and transected across using a LigaSure device starting proximally to distally without complication the entire fallopian tubes were removed. The uterus was returned to the maternal abdomen and gutters were cleared of all clots and debris. The peritoneum was closed with 3-0 Monocryl in a running fashion. Gloves were changed prior to fascial closure. Fascia was closed with 0 PDS in a running fashion. Subcutaneous tissue was copiously irrigated and the skin was closed with 3-0 Monocryl in a subcuticular fashion. Mepilex dressing was applied without complication. Patient was taken to recovery in stable condition. Presentation: Positive for Footling Breech Amniotic Membrane Rupture Type: Artificial Amniotic Fluid Description: Clear Placental Delivery Description: Spontaneous Placenta Disposition: [facility] Cord Vessel Description: 3 Vessels Cord Entanglement: None A Gender: Female Delayed Cord Clamping: Yes Complications Risks of Surgery Discussed w/Patient: Bleeding, Infection, Need for Future C- Sections and Injury to surrounding structure(s) including bowel and bladder Complications: none Admit VTE Documentation VTE Present on Admission: No VTE Mechan Device Prophylaxis: SCD's Procedures Urinary/Genital [id number]: 00538 delivery+PP Care([facility]) 5XXXX Add on/ Proc: 31611 Ligate oviduct(s) add-on (bilateral salpingectomy)
[2020-10-19] MEDS: Cefazolin 2 GM in 0.9% Normal Saline 100 ML IV (19:03)
[2020-10-19] MEDS: Oxytocin 30 units/NS 500 ml 30 UNITS/500 ML IV.SOLN 167 UNITS IV (19:55)
--- NOTE | 2020-10-19 20:00 | NURSING ---
this RN gave bedside report to lwaters RN. that rn to assume care of pt at this time and complete patient recovery.
[2020-10-19] MEDS: Ketorolac 30 MG/ML Syringe IV (20:30)
[2020-10-19] MEDS: 0.9% Saline Lock 10 ML Syringe IV (20:30)
[2020-10-19 21:21] LABS: Pathology Specimen OB SEE PATHOLOGY REPORT
[2020-10-19] MEDS: Lactated Ringers 1,000 ML 100 ML IV (22:52)
[2020-10-20] VITALS (7 sets, daily range): BP systolic 100–113; BP diastolic 42–65; PULSE 67–79; RESP 16–18; TEMP 36.2–36.5; O2SAT 98–100
[2020-10-20] MEDS: Acetaminophen 500 MG Tablet 1000 MG PO ×4 (00:23→19:25)
[2020-10-20] MEDS: Ondansetron 4 MG/2 ML Vial IV (00:23)
[2020-10-20] MEDS: Ketorolac 30 MG/ML Syringe IV ×3 (02:17→14:21)
[2020-10-20 04:49] LABS: Hematocrit 30.3 % (37-47); Mean Corp Hgb Conc 29.7 g/dL (32-36); Mean Corpuscular Hgb 24.7 pg (27.0-32.0); POSITIVE MORPHOLOGY YES; Platelet Count 150 K/mm3 (150-450); RBC Distribution Width CV 23.2 % (11.6-14.6); RBC Distribution Width SD 65.9 fl (35.1-43.9); Red Blood Count 3.65 M/mm3 (4.2-5.4)
[2020-10-20 04:55] LABS: Scan Indicated on CBC? Y/N YES- FLAGS NOTED
--- NOTE | 2020-10-20 07:48 | PN.OBGYN_ITS ---
Subjective Subjective Patient doing well without complaints. Tolerating PO. Ambulating and voiding without difficulty. Feeding well. Denies chest pain, shortness of breath, calf pain/swelling, fevers, chills, lightheadedness. Objective Data Objective Data Vital Signs: Vital Signs Temp Pulse Resp BP Pulse Ox 97.4 F L 79 18 113/65 100 10/20/20 02:05 10/20/20 06:47 10/20/20 06:47 10/20/20 04:13 10/20/20 06:47 Oxygen Delivery Method Room Air Weight: 235 lb Body Mass Index (BMI) 35.7 Intake & Output: Intake and Output for Last 24 Hours 10/18/20 10/19/20 10/20/20 23:59 23:59 23:59 Intake Total 3474.72 / 3474.72 1346.67 / 1346.67 Output Total 1125 / 1125 450 / 450 Balance 2349.72 / 2349.72 896.67 / 896.67 Lab / Micro Data Result Diagrams: 10/20/20 04:25 Labs: Laboratory Results - last 24 hr 10/19/20 10:30: WBC 8.6, RBC 4.33, Hgb 10.7 L, Hct 35.3 L, MCV 81.5, MCH 24.7 L, MCHC 30.3 L, RDW Std Deviation 65.8 H, RDW Coeff of Santhosh 23.4 H, Plt Count 204, MPV 10.2, Immature Gran % (Auto) 1.700 H, Neut % (Auto) 72.8 H, Lymph % (Auto) 19.2, Hays % (Auto) 5.5, Eos % (Auto) 0.5, Baso % (Auto) 0.3, Absolute Neuts (auto) 6.3, Absolute Lymphs (auto) 1.65, Nucleated RBC % 0, Differential Comment SCANNED, Anisocytosis 2+, Microcytosis 1+, Macrocytosis 1+ 10/19/20 10:36: Vag Amniotic Fld Detect POSITIVE H 10/19/20 15:00: WBC 9.5, RBC 4.23, Hgb 10.6 L, Hct 34.8 L, MCV 82.3, MCH 25.1 L, MCHC 30.5 L, RDW Std Deviation 65.7 H, RDW Coeff of Santhosh 23.4 H, Plt Count 214, MPV 11.4, Immature Gran % (Auto) 1.800 H, Neut % (Auto) 74.2 H, Lymph % (Auto) 18.6 L, Hays % (Auto) 4.7, Eos % (Auto) 0.4, Baso % (Auto) 0.3, Absolute Neuts (auto) 7.0, Absolute Lymphs (auto) 1.76, Nucleated RBC % 0, Differential Comment 10/19/20 15:00: Blood Type O POSITIVE, Antibody Screen NEGATIVE 10/20/20 04:25: WBC 9.0, RBC 3.65 L, Hgb 9.0 L, Hct 30.3 L, MCV 83.0, MCH 24.7 L , MCHC 29.7 L, RDW Std Deviation 65.9 H, RDW Coeff of Santhosh 23.2 H, Plt Count 150, MPV 10.0 Micro: Microbiology 10/19/20 15:35 Mucosa - Nose SARS-CoV-2 Antigen (Rapid) - Final Physical Exam Const alert and oriented x3 HEENT normocephalic Eyes PERRL Neck full ROM Resp normal respiratory effort GI soft to palpation GI Narrative: FF below U. Dressing dry and intact Palpation: tender other (appropriately) Assessment & Plan (1) delivery delivered: (2) Sterilization: COMMENT: maribel 19 signed 09/11/20 (3) Breech presentation: QUALIFIERS: Fetus number: single or unspecified fetus Qualified Code(s): O32.1XX0 - Maternal care for breech presentation, not applicable or unspecified PLAN: s/p LTCS PPD # 1 1. routine post care 2. breast feeding- support given 3. rh positive 4. rubella immune
[2020-10-20] MEDS: Enoxaparin 40 MG/0.4 ML Syringe SC (08:11)
[2020-10-20] MEDS: 0.9% Saline Lock 10 ML Syringe IV ×2 (08:13→14:21)
[2020-10-20] MEDS: Senna/Docusate Sodium 1 Tablet PO (11:39)
[2020-10-20] MEDS: Prenatal Vits Tablet 1 TABLET PO (11:39)
[2020-10-20] MEDS: Sertraline 50 MG Tablet PO (11:39)
[2020-10-20] MEDS: Naproxen 500 MG Tablet PO (21:59)
[2020-10-21] MEDS: Acetaminophen 500 MG Tablet 1000 MG PO ×2 (01:29→06:39)
[2020-10-21 01:30] VITALS: BP 124/44; PULSE 77; RESP 16; TEMP 36.8; O2SAT 98
[2020-10-21] MEDS: Naproxen 500 MG Tablet PO (06:39)
--- NOTE | 2020-10-21 07:57 | PCM.PN.OB ---
Subjective Subjective Patient doing well without complaints. Tolerating PO. Ambulating and voiding without difficulty. Feeding well. Denies chest pain, shortness of breath, calf pain/swelling, fevers, chills, lightheadedness. Objective Data Objective Data Vital Signs: Vital Signs Temp Pulse Resp BP Pulse Ox 98.3 F 77 16 124/44 H 98 10/21/20 01:30 10/21/20 01:30 10/21/20 01:30 10/21/20 01:30 10/21/20 01:30 Oxygen Delivery Method Room Air Weight: 235 lb Body Mass Index (BMI) 35.7 Intake & Output: Intake and Output for Last 24 Hours 10/19/20 10/20/20 10/21/20 23:59 23:59 23:59 Intake Total 3474.72 / 3474.72 1346.67 / 1346.67 Output Total 1125 / 1125 850 / 850 Balance 2349.72 / 2349.72 496.67 / 496.67 Lab / Micro Data Result Diagrams: 10/20/20 04:25 Micro: Microbiology 10/19/20 15:35 Mucosa - Nose SARS-CoV-2 Antigen (Rapid) - Final Physical Exam Const alert and oriented x3 HEENT normocephalic Eyes PERRL Neck full ROM Resp normal respiratory effort GI soft to palpation GI Narrative: FF below U. Dressing dry and intact Palpation: tender other (appropriately) Assessment & Plan (1) delivery delivered: (2) Sterilization: COMMENT: maribel 19 signed 09/11/20 PLAN: s/p LTCS PPD # 1 1. routine post care 2. breast feeding- support given 3. rh positive 4. rubella immune 5. home today
--- NOTE | 2020-10-21 08:10 | PCM.DC ---
Discharge Instructions Diet Discharge Diet: No restrictions Activity Discharge Activity: May Not Drive ( while on narcotics) and May Shower May resume sexual activity in: 6 weeks Dressing / Incision Call your doctor if your incision/area has: Continuous Slow Oozing, Sudden Increased Bleeding, Increased Pain/ Swelling, Increased Redness, Foul Smelling Discharge and Swelling at the incision site Call your doctor if you observe: Fever of 101 or Higher, Inability to have a bowel movement, Using more than 1 pad per hour, Shortness of breath, Dizziness, Chest pain and Calf discomfort Remove Dressing in: 1 week Cleanse incision/area with: Soap & Water Follow Up Care Please Follow Up With: Wilda Parada MD When: 2 and 6 weeks Test Results: Test results from this visit will be discussed in further detail at your follow-up appointment, if applicable. Discharge Plan Admission Admit Date/Time: 10/19/20 13:25 Attending Provider: Wilda Parada Primary Care Provider: Rubén Ponce Discharge Orders/Prescriptions Prescriptions: New oxycodone-acetaminophen [oxycodone-acetaminophen] 1 TABLET tablet 1 - 2 tab PO Q4H PRN PRN (Reason: Pain) 3 Days Qty: 15 RF: 0 naproxen 500 MG tablet 500 mg PO BID PRN PRN (Reason: Pain) Qty: 60 RF: 1 No Action promethazine 12.5 mg tablet 12.5 mg PO Q6H PRN (Reason: nausea and vomiting) Qty: 30 RF: 3 hydroxyzine pamoate [Vistaril] 50 mg capsule 50 mg PO TID-QID PRN (Reason: anxiety) Qty: 60 RF: 4 PNV cmb#95-ferrous fumarate-FA 1 EACH tablet 1 ea PO DAILY RF: 0 sertraline [Zoloft] 100 mg tablet 100 mg PO DAILY RF: 0 Referrals / Follow Up: Rubén Ponce DO [Primary Care Provider] - Disposition Disposition (needs filled in before D/C Order can be placed): Home, Self Care
[2020-10-21 08:38] VITALS: BP 132/60; PULSE 80; RESP 16; TEMP 36.7; O2SAT 97
[2020-10-21] MEDS: Enoxaparin 40 MG/0.4 ML Syringe SC (10:35)
[2020-10-21] MEDS: Senna/Docusate Sodium 1 Tablet PO (10:38)
[2020-10-21] MEDS: Sertraline 50 MG Tablet PO (10:38)
== END 2020-10-21 11:13 | disposition home or self-care (01) | DRG 539 ==
LOC: WP 13:36
PROVIDERS: Admitting Provider Obstetrics & Gynecology; PCP Student in an Organized Health Care Education/Training Program; Referring Provider Obstetrics & Gynecology; Visit Provider Obstetrics & Gynecology
DX: O32.8XX0 Maternal care for other malpresentation of fetus, not applicable or unspecified (principal); O42.92 Full-term premature rupture of membranes, unspecified as to length of time between rupture and onset of labor; O99.02 Anemia complicating childbirth; D64.9 Anemia, unspecified; O99.810 Abnormal glucose complicating pregnancy; O99.344 Other mental disorders complicating childbirth; F32.9 Major depressive disorder, single episode, unspecified; F41.9 Anxiety disorder, unspecified; O99.214 Obesity complicating childbirth; E66.9 Obesity, unspecified; Z3A.38 38 weeks gestation of pregnancy; Z37.0 Single live birth; Z30.2 Encounter for sterilization
CPT/HCPCS: 36415; 59025; 59050; 84112; 85025; 85027; 86850; 86900; 86901; 87426; 88302; 99218; J7120; A4216; G0378; J2405

== ENCOUNTER 2020-11-22 07:23 | Emergency (ER) | payer MEDICAID, SELFPAY ==
[2020-11-22 07:23] VITALS: BP 124/81; PULSE 80; RESP 14; TEMP 36.1; O2SAT 97; BMI 31.5
--- NOTE | 2020-11-22 07:46 | EKG12_ITS ---
Test Reason : BACK PAIN/SOB Blood Pressure : / mmHG Vent. Rate : 067 BPM Atrial Rate : 067 BPM P-R Int : 194 ms QRS Dur : 086 ms QT Int : 414 ms P-R-T Axes : 038 033 043 degrees QTc Int : 437 ms Normal sinus rhythm Normal ECG Confirmed by JOSIANE FOREMAN, MANA ([id number]), editor book AI BOSCH ([id number]) on 11/24/2020 8:09:57 AM Referred By: JUVENAL Confirmed By:CHASE JOSHUA MD
--- NOTE | 2020-11-22 07:46 | CT_ITS ---
STUDY: CTA CHEST REASON FOR EXAM: Female, 25 years old. pulmonary embolism RADIATION DOSAGE (If Supplied By Facility): CTDIvol = ( 12.03 ) mGy, DLP = ( 458.09 ) mGycm TECHNIQUE: The examination was performed with the intravenous administration of IV 100mL Isovue-370. Post-processing of the angiographic images was performed, with multiplanar reformation and 3D reconstruction. Individualized dose optimization techniques were used for this CT. COMPARISON: 09/20/2018 FINDINGS: Normal enhancement of the main pulmonary artery and right and left pulmonary arteries. Normal enhancement of the bilateral peripheral pulmonary arteries. There is no demonstrated pulmonary embolism. Normal thoracic aorta and visualized great vessels. There is no demonstrated aortic dissection. Normal heart and pericardium. Normal mediastinum. Normal hilar regions. Normal visualized trachea and bronchi. The lungs are well expanded. Normal pulmonary parenchyma. Normal pleura. Normal chest wall structures. Normal osseous structures. Normal visualized upper abdomen. CT/CTA Chest W/WO Contrast IMPRESSION: Normal CTA chest examination, without a demonstrated pulmonary embolism or arterial dissection. Electronically Signed: George Rae MD at 9:13 EDT Tel , Service support ,
--- NOTE | 2020-11-22 07:47 | EDS_ITS ---
HPI History of Present Illness Chief Complaint: Back Informant: patient Narrative Narrative: 25-year-old female presenting to the emergency room with right thoracic back pain. Patient states that she awoke suddenly from sleep approximately 0200 hrs. with a severe pain in her right mid thoracic back. She states that she cannot find a position of comfort. It is painful to take a breath. No fever or cough. She states it felt like somebody was taking a needle and inserting it up her spine. She states she had a 1 month ago. She is not breast-feeding. She tried various positions and stretching and nothing seemed to help the pain. Eventually calm down and then she had a second attack about 45 minutes prior to arrival she denies any urinary symptoms. [facility] Medical History Anxiety and depression Chlamydia Irregular menstrual cycle Home Medications hydroxyzine pamoate 50 mg capsule 50 mg PO TID-QID PRN #60 cap 07/20/20 [Rx Last Taken 07/19/19] sertraline 100 mg tablet 100 mg PO DAILY #90 tab 11/04/20 [Rx Last Taken Unknown] cyclobenzaprine 10 mg PO TID PRN #10 tablet 11/22/20 [Rx Last Taken Unknown] hydrocodone-acetaminophen 1 tab PO Q6H PRN PRN 3 Days #12 tablet 11/22/20 [Rx Last Taken Unknown] Allergy/AdvReac Type Severity Reaction Status Date / Time No Known Allergies Allergy Verified 11/22/20 07:26 Surgical History H/O elbow surgery Social History adopted: No household members: family housing: house number of children: 1 current occupational status: employed current occupation: [employer] pets and animals: Yes Smoking Status: Never smoker second hand exposure: Yes alcohol intake: current details: not while substance use type: does not use seatbelt use: always do you feel safe at home: Yes additional social history: - Barry DERAS) ROS ROS ED Constitutional Constitutional ED: Denies chills or weight loss Eyes Eyes: Denies change in vision or diplopia ENT ENT ED: Denies ear pain, rhinorrhea or sore throat Cardiovascular Cardiovascular: Denies chest pain, orthopnea, palpitations or racing heartbeat Respiratory/Chest Respiratory/Chest: Reports dyspnea; Denies cough or orthopnea Gastrointestinal Gastrointestinal: Denies abdominal pain, diarrhea, nausea or vomiting Genitourinary Genitourinary ED: Denies dysuria, hematuria or urinary frequency Musculoskeletal Musculoskeletal: Reports back pain; Denies arthralgias or myalgias Integumentary Denies abscess or rash Neurologic Neurologic: Denies headache(s) or weakness Psychiatric Psychiatric: Denies anxiety, depression, suicidal ideation or suicidal thoughts Endocrine Endocrinology: Denies polydipsia, polyphagia or polyuria Allergic/Immunologic Allergic/Immunologic ED: Denies mouth swelling, tongue swelling or urticaria EXAM Physical Exam Const Vital Signs: 11/22/20 07:23 Temperature 97.0 F L Temperature Source Temporal Pulse Rate 80 Respiratory Rate 14 Blood Pressure 124/81 H Blood Pressure Mean 95 Pulse Ox 97 Oxygen Delivery Method Room Air Positive well nourished and well developed General Appearance ED: well developed HEENT Reports normocephalic, head/scalp atraumatic and moist mucous membranes Eyes PERRL and EOMs intact bilaterally Neck no lymphadenopathy, supple and no JVD Resp normal respiratory effort and clear to auscultation bilaterally Cardio regular rate, regular rhythm and no murmurs GI normal to inspection, nondistended, normoactive bowel sounds and non-tender Palpation: soft Back/Spine no CVA tenderness and normal ROM Back/Spine Narrative: Patient has no tenderness to palpation when I palpate over the musculature where the patient points to as the source of her pain. This is the mid right thoracic paraspinal musculature. She tells me that actually feels good have the muscles palpated. There is no tissue texture changes to suggest underlying infection. Extremity normal to inspection General Extremety ED: Negative for edema General Extremity: Negative for edema Neuro oriented x3 and CN's II-XII intact bilaterally Sensorium / Orientation: alert Motor Exam: strength 5/5 throughout Psych mental status grossly normal Mood & Affect: Negative for depressed or tearful Skin no rashes or lesions noted and no wounds MDM MDM MDM Narrative Medical decision making narrative: Given the sudden onset of her symptoms in 1 month with a CTA of the chest was obtained to rule out pulmonary embolism. This was negative. CMP normal except for AST of 47 alk phos 130. Patient received a dose of Toradol. At this point question whether not this could be musculoskeletal especially in light that she is than her body mechanics are changing. All right for her to have some pain medication as well as Flexeril. Lab Data Labs: Laboratory Results - last 24 hr 11/22/20 07:52 Sodium 138 Potassium 4.0 Chloride 106 Carbon Dioxide 24.0 Anion Gap 8 BUN 20 H Creatinine 0.86 Estim Creat Clear Calc 100.00 Est GFR (MDRD) Af Amer 102 Est GFR (MDRD) Non-Af 84 BUN/Creatinine Ratio 23.2 H Glucose 106 Calcium 8.6 Total Bilirubin 0.40 AST 47 H ALT 32 Alkaline Phosphatase 130 H Troponin I High Sens 5 Total Protein 6.5 Albumin 3.2 Globulin 3.3 Albumin/Globulin Ratio 1.0 Radiography Diagnostic Testing: Radiology Impression Chest CTA 11/22/20 07:46 IMPRESSION: Normal CTA chest examination, without a demonstrated pulmonary embolism or arterial dissection. Electronically Signed: George Rae MD at 9:13 EDT Tel , Service support , EKG Initial EKG: Attestation: I personally reviewed and interpreted this EKG as follows: Comments: Normal sinus rhythm with a ventricular rate of 67 bpm. No concerning features of ACS. Discharge Plan Triage Chief Complaint: Back ED Provider: Scott Arroyo Dx/Rx/DC Orders Clinical Impression: Acute right-sided thoracic back pain Instructions: ED Back Pain (Acute or Chronic) Prescriptions: New cyclobenzaprine [cyclobenzaprine] 10 MG tablet 10 mg PO TID PRN (Reason: Muscle Spasm) Qty: 10 RF: 0 hydrocodone-acetaminophen [hydrocodone-acetaminophen] 1 TABLET tablet 1 tab PO Q6H PRN PRN (Reason: Pain) 3 Days Qty: 12 RF: 0 No Action hydroxyzine pamoate [Vistaril] 50 mg capsule 50 mg PO TID-QID PRN (Reason: anxiety) Qty: 60 RF: 4 sertraline [Zoloft] 100 mg tablet 100 mg PO DAILY Qty: 90 RF: 3 Primary Care Provider: Rubén Ponce Referrals: Romar,Rubén, DO [Primary Care Provider] - 3-5 Days if not improving Disposition Disposition: Home, Self Care
[2020-11-22] MEDS: Ketorolac 30 MG/ML Syringe IV (07:56)
[2020-11-22 08:16] LABS: AST(SGOT) 47 U/L (15-37); Alanine Aminotransfer ALT/SGPT 32 U/L (13-56); Albumin, Serum 3.2 g/dL (3.2-5.0); Alkaline Phosphatase 130 U/L (45-117); Anion Gap 8 (5-15); BUN 20 mg/dL (7-18); BUN/Creat Ratio 23.2 RATIO (10-20); Calcium,Total 8.6 mg/dL (8.5-10.1); Chloride 106 mmol/L (98-107); Creatinine, Serum 0.86 mg/dL (0.55-1.02); EST Glomerular Filtration Rate 84 mL/min (>60); Est Glom Filt Rate - Afr Amer 102 mL/min (>60); Globulin 3.3 g/dL (2.2-4.2); Glucose 106 mg/dL (74-106); Protein, Total 6.5 g/dL (6.4-8.2); Sodium Level 138 mmol/L (136-145); Troponin-I HS 5 pg/mL (3.0-54.0)
[2020-11-22 09:41] VITALS: BP 119/63; PULSE 69; RESP 16; O2SAT 98
== END 2020-11-22 09:41 | disposition home or self-care (01) ==
PROVIDERS: Emergency Provider Emergency Medicine; PCP Student in an Organized Health Care Education/Training Program
DX: M54.6 Pain in thoracic spine (principal); F32.9 Major depressive disorder, single episode, unspecified; F41.9 Anxiety disorder, unspecified; Z79.899 Other long term (current) drug therapy
CPT/HCPCS: 71275; 80053; 84484; 93005; 96374; 99283; Q9967

== ENCOUNTER → 2021-12-09 | Outpatient (CLI) | payer MEDICAID, SELFPAY ==
[2021-12-09 14:27] LABS: Hemoglobin A1c 5.6 % (3.8-5.6)
[2021-12-09 14:32] LABS: Cholesterol 201 mg/dL (200); Estradiol 53.2 pg/mL; High Density Lipoprotein 51 mg/dL; Prolactin 4.2 ng/mL; Triglycerides 155 mg/dL; Very Low Density Lipoprotein 31 mg/dL (5-40)
[2021-12-15 10:54] LABS: Testosterone Free 1.2 pg/mL (0.0-4.2)
[2021-12-20 13:41] LABS: 17-Hydroxyprogesterone 31 ng/dL (.)
== END | disposition home or self-care (01) ==
LOC: PAVLAB 13:58
PROVIDERS: PCP Student in an Organized Health Care Education/Training Program; Referring Provider Obstetrics & Gynecology; Visit Provider Obstetrics & Gynecology
DX: N91.4 Secondary oligomenorrhea (principal)
CPT/HCPCS: 36415; 80061; 82627; 82670; 83001; 83036; 83498; 84146; 84402; 84443; 82626

== ENCOUNTER 2023-01-18 18:22 | Emergency (ER) | payer BC, MEDICAID, SELFPAY ==
[2023-01-18 18:23] VITALS: BP 116/74; PULSE 76; RESP 18; TEMP 35.6; O2SAT 100; BMI 29.6
[2023-01-18 19:22] LABS: Bacteria 0 SEEN /hpf (None Seen); Mucous, Urine 0 SEEN /hpf (<or=2+); White Blood Cells 0 SEEN /hpf (0-5)
[2023-01-18 19:23] LABS: Absolute Lymphocyte Count 1.29 X10^3/uL (0.83-4.51); Absolute Neutrophil Count 8.9 X10^3/uL (2.0-7.7); Basophil# 0.03 X10^3/uL; Basophil% 0.3 % (0-1); Eosinophils% 0.9 % (0-5); Hematocrit 41.3 % (37-47); Hemoglobin 13.5 g/dL (12.0-15.0); Lymphocyte # 1.29 X10^3/ul (0.83-4.51); Lymphocyte % 11.7 % (19-41); Mean Corp Hgb Conc 32.7 g/dL (32-36); Mean Corpuscular Hgb 28.5 pg (27.0-32.0); Mean Corpuscular Volume 87.1 fL (81-99); Mean Platelet Vol. 10.5 fl (6.2-12.0); Monocyte# 0.61 X10^3/uL; Monocyte% 5.6 % (0-10); NRBC Flagged by Analyzer 0 % (0-5); Neutrophil # 8.89 X10^3/uL (2.7-7.7); Platelet Count 224 K/mm3 (150-450); RBC Distribution Width CV 12.9 % (11.6-14.6); Red Blood Count 4.74 M/mm3 (4.2-5.4)
[2023-01-18 19:43] LABS: ALB/GLOB Ratio 1.2 RATIO (0.9-2.4); AST(SGOT) 9 U/L (15-37); Alanine Aminotransfer ALT/SGPT 23 U/L (13-56); Albumin, Serum 3.8 g/dL (3.2-5.0); Alkaline Phosphatase 63 U/L (45-117); Anion Gap 6 (5-15); BUN 14 mg/dL (7-18); BUN/Creat Ratio 16.3 RATIO (10-20); Chloride 106 mmol/L (98-107); Creatinine, Serum 0.86 mg/dL (0.55-1.02); EST Glomerular Filtration Rate 83 mL/min (>60); Est Glom Filt Rate - Afr Amer 101 mL/min (>60); Estimated Creatinine Clearance 98.24 ml/min; Globulin 3.1 g/dL (2.2-4.2); Glucose 88 mg/dL (74-106); Potassium 3.7 mmol/L (3.5-5.1); Protein, Total 6.9 g/dL (6.4-8.2); Sodium Level 140 mmol/L (136-145)
[2023-01-18 19:56] LABS: Color, Urine Yellow (Yellow); Glucose, Dipstick Normal (Normal); Ketone-Dipstick Negative (Negative); Leukocyte Esterase-Dipstick Negative /ul (Negative); Nitrite-Dipstick Negative (Negative); Occult Blood-Urine Negative /ul (Negative); Protein-Dipstick 15 mg/dl (Negative); Specific Gravity, Urine 1.015 (1.002-1.030); Urine Bilirubin Dipstick Negative (Negative); Urine Clarity Sl. Cloudy (Clear); Urine Urobilinogen Normal (Normal)
[2023-01-18 19:57] LABS: Internal QC Validated? YES +Cl - CLEAR BKGD; Pregnancy, Serum, hCG Quali. NEGATIVE Negative
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
[2023-01-18 20:19] LABS: Amorphous Sediment 1+; Red Blood Cells-Urine 0 SEEN /hpf (0-5); Squamous Epithelial Cells - UA 0-5 SEEN /hpf (5-10)
--- NOTE | 2023-01-18 20:38 | CT_ITS ---
STUDY: CT ABDOMEN AND PELVIS WITH CONTRAST REASON FOR EXAM: Female, 27 years old. Abdominal pain RADIATION DOSAGE (If Supplied By Facility): CTDIvol = ( 14.04 ) mGy, DLP = ( 1088.66 ) mGycm TECHNIQUE: Transaxial images were obtained from the dome of the diaphragm to the symphysis pubis without oral contrast. IV 100mL Isovue-[id number] was administered. Sagittal and coronal images were reconstructed. Individualized dose optimization techniques were used for this CT. COMPARISON: None. FINDINGS: The visualized lung bases are unremarkable. The visualized portions of the heart are within normal limits. Normal liver. Normal gallbladder and extrahepatic biliary system. Normal spleen. Normal pancreas. Normal bilateral adrenal glands. Normal right kidney. Normal left kidney. Normal visualized stomach. Normal small intestine. Normal colon. The appendix is visualized and appears normal. Normal abdominal aorta. Normal inferior vena cava. Normal retroperitoneum. Normal urinary bladder. Normal visualized uterus. There is no free fluid in the abdomen or pelvis. Normal abdominal wall. Normal osseous structures. CT/Abdomen/Pelvis W IV Cont ONLY IMPRESSION: Normal enhanced CT of the abdomen and pelvis. No mass or obstruction. No hydronephrosis. Electronically Signed: Yonas Vargas MD at 21:29 EDT ,
== END 2023-01-18 22:06 | disposition home or self-care (01) ==
PROVIDERS: Emergency Provider Emergency Medicine; PCP Student in an Organized Health Care Education/Training Program; Visit Provider Emergency Medicine
DX: R10.9 Unspecified abdominal pain (principal)
CPT/HCPCS: 74177; 80053; 81001; 84703; 85025; 99283; Q9967; A4216

== ENCOUNTER → 2023-01-25 | Outpatient (CLI) | payer BC, MEDICAID, SELFPAY ==
[2023-01-25 17:35] LABS: HIV - WCH Non-Reactive (Nonreactive); Syphilis Antibodies Non-reactive
[2023-01-27 05:07] LABS: HSV 2 IgG < 0.91 index (0.00-0.90)
[2023-01-27 21:07] LABS: Chlamydia By Nucleic Acid AMP Negative (Negative); Gonococcus By Nucleic Acid AMP Negative (Negative)
== END | disposition home or self-care (01) ==
PROVIDERS: PCP Student in an Organized Health Care Education/Training Program; Referring Provider Nurse Practitioner Women's Health; Visit Provider Nurse Practitioner Women's Health
DX: Z20.2 Contact with and (suspected) exposure to infections with a predominantly sexual mode of transmission (principal)
CPT/HCPCS: 36415; 86695; 86696; 86703; 86780; 87491; 87591

== ENCOUNTER → 2023-02-10 | Outpatient (CLI) | payer BC, MEDICAID, SELFPAY ==
--- NOTE | 2023-02-10 12:50 | US_ITS ---
INDICATION: Pain mid pelvis EXAMINATION: US Pelvis Non OB Limited With Transvaginal Imaging TECHNIQUE: Transabdominal and transvaginal (for optimal evaluation of the adnexa) pelvic ultrasound was performed. Grayscale, spectral waveform, and color flow Doppler evaluation of the adnexa. COMPARISON: CT abdomen and pelvis from 01/18/2023 and pelvic ultrasound from 06/24/2020 FINDINGS: Uterus measures 9.4 x 4.8 x 6.9 cm. Endometrial complex measures 11 mm. No endometrial lesion or uterine mass demonstrated. Small cervical nabothian cysts noted. No adnexal mass or significant free pelvic fluid. Bilateral ovaries with normal color Doppler flow and spectral Doppler waveforms. Transvaginally, right ovary measures 4.1 x 3.1 x 3.6 cm and left ovary 3 x 1.7 x 2.3 cm. Dominant anechoic right ovarian follicle measures up to 2 cm diameter. US/Pelvic (Non ) IMPRESSION: Dominant 2 cm right ovarian follicle with no significant free pelvic fluid. No additional follow-up recommended. No other acute findings. Small nabothian cysts. Electronically Signed: Alessio Richard MD at 18:37 EST ,
== END | disposition home or self-care (01) ==
LOC: US 12:49
PROVIDERS: PCP Student in an Organized Health Care Education/Training Program; Referring Provider Nurse Practitioner Women's Health; Visit Provider Nurse Practitioner Women's Health
DX: R10.2 Pelvic and perineal pain (principal)
CPT/HCPCS: 76830; 76856; 93976

== ENCOUNTER 2024-01-11 17:50 | Emergency (ER) | payer BC, MEDICAID, SELFPAY ==
[2024-01-11 17:50] VITALS: BP 115/74; PULSE 72; RESP 18; TEMP 36.9; O2SAT 100; BMI 24.8
--- NOTE | 2024-01-11 17:56 | ED.RN ---
PROTOCOL ORDERS ENTERED D/T BUSY UNIT. PT. REFUSED BLOOD WORK AT THIS TIME STATING THERE IS A LONG WAIT, AND I DON'T WANT TO BE STUCK HERE BECAUSE THAT THING IS IN MY ARM. . PT. ASSURED IT COULD BE REMOVED AT ANYTIME. SHE RESPONDED WITH MY BOYFRIEND WILL BE HERE SOON AND WE WILL DECIDE TO STAY OR NOT . NO PROTOCOL INITIATED AT THIS TIME.
--- OUTSIDE RECORDS SUMMARY | 2024-01-11 19:28 | XMS RPT_ITS | CCD ---
Author Organization [facility] Inform ion Partnership [facility] Care Team Providers Care Corporate Wellness Coordinator Name Role Phone DR FRANKY PONCE DO Primary Care Physician FRANKY PONCE Attending Unavailable FRANKY PONCE Primary Care Unavailable FRANKY PONCE Primary Care Unavailable GALDINO LU Attending Unavailable Franky Ponce DO Primary Care Provider FRANKY PONCE Primary Care Unavailable FRANKY PONCE Primary Care Unavailable NO, PHYSICIAN Primary Care Unavailable MARY MORELAND Attending Unavailable Allergies Allergy Classification Reported Allergen(s) Allergy Type Date of Onset Reaction(s) Facility (3 sources) Penicillin; Translations: [PENICILLIN G] Drug Allergy 05-14-2022 GI Upset [facility] Other [place] Repository Medications Current Medications Medication Drug Class(es) Dates Sig (Normalized) Sig (Original) amoxicillin 875 mg / clavulanate 125 mg oral tablet (1 source) Penicillin-class Antibacterial Start: 06-08-2023 End: 06-18-2023 take 1 tablet by mouth twice daily amoxicillin-clavu lanate potassium (AUGMENTIN) 875-125 mg per tablet Take 1 tablet by mouth two times a day for 10 days. 20 tablet 0 06/08/2023 06/18/2023 Active Comment on above: Take 1 tablet by joseph two times a day for 10 days. citalopram 40 mg oral tablet (1 source) Serotonin Reuptake Inhibitor Start: 12-23-2021 CeleXA 40 mg oral tablet Dose : 40 mg = 1 tab(s), Oral, qDay, # 30 tab(s), 0 Refill(s) Start Date: 12/23/21 Status: Ordered hydrOXYzine pamoate 50 mg oral capsule (1 source) Antihistamine Start: 09-13-2019 hydrOXYzine pamoate 50 mg oral capsule Dose : 50 mg = 1 cap(s), Oral, QID, PRN as needed for anxiety, # 40 cap(s), 1 Refill(s), Pharmacy: [id number], 173, cm, 09/13/19 11:04:00 EDT, Height, kg, 09/13/19 11:04:00 EDT, Dosing Weight Start Date: 09/13/19 Status: Ordered varenicline 1 mg oral tablet (2 sources) Partial Cholinergic Nicotinic Agonist Start: 12-23-2021 take 1 tablet by mouth once, then take 1 tablet by mouth twice daily Chantix Continuing Month 1 mg oral tablet Dose : 1 mg = 1 tab(s), Oral, BID, with a full glass of water, # 56 tab(s), 0 Refill(s), Pharmacy: [id number], 172.7, cm, 12/23/21 9:51:00 EDT, Height Start Date: 12/23/21 Status: Ordered Start: 12-23-2021 take 1 tablet by joseph th twice daily Chantix Starter Pack 0.5 mg-1 mg oral tablet Dose = 1 tab(s), Oral, BID, # 1 kit(s), 0 Refill(s), Pharmacy: [id number], 172.7, cm, 12/23/21 9:51:00 EDT, Height Start Date: 12/23/21 Status: Ordered Completed/Discontinued Medications Medication Drug Class(es) Dates Sig (Normalized) Sig (Original) acetaminophen 325 mg / aspirin 500 mg / caffeine 65 mg oral powder (1 source) Platelet Aggregation Inhibitor, Nonsteroidal Anti-inflammatory Drug, Central Nervous System Stimulant, Methylxanthine Aspirin-Acetamin ophen-Caffeine (GOODY'S EXTRA STRENGTH) 500-325-65 mg pwpk Take 1 Packet by mouth as needed (for headaches). 0 Active Comment on above: Take 1 Packet by joseph th as needed (for headaches). cetirizine hydrochloride 10 mg oral tablet (1 source) Histamine-1 Receptor Antagonist Start: 10-13-2018 take 1 tablet by mouth once daily cetirizine (ZYRTEC) 10 mg tablet Take 1 tablet by mouth once daily. 30 tablet 0 10/13/2018 Active Comment on above: Take 1 tablet by joseph th once daily. naproxen 500 mg oral tablet (1 source) Nonsteroidal Anti-inflammatory Drug Start: 05-30-2018 take 1 tablet by mouth every twelve hours as needed naproxen (NAPROSYN) 500 mg tablet Take 1 tablet by mouth twice daily as needed. for pain. Take with food. 30 tablet 11 05/30/2018 Active Comment on above: Take 1 tablet by joseph th twice daily as needed. for pain. Take with food. vit37/iron/folic acid (PRENATA ORAL) (1 source) vit37/iron/folic acid (PRENATA ORAL) Take by mouth. 0 Active Comment on above: Take by mouth. 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 Gastrointestinal hemorrhage (1 source) Rectal hemorrhage 09-30-2019 Episodic Headache; including migraine (1 source) Migraine 09-13-2019 Chronic Hemorrhoids (1 source) Internal hemorrhoids 11-12-2019 Episodic Other ear and sense organ disorders (1 source) Unspecified acute noninfective otitis externa, left ear; Translations: [Acute otitis externa of left ear, unspecified type] Onset: 3 Episodic Other infections; including parasitic (1 source) History of chlamydial infection 09-13-2019 Episodic Other nutritional; endocrine; and metabolic disorders (1 source) Body mass index 30+ - obesity 12-23-2021 Chronic Other skin disorders (2 sources) Rash and other nonspecific skin eruption; Translations: [Rash and other nonspecific skin eruption] Onset: 4 Episodic Other upper respiratory infections (1 source) Streptococcal sore throat; Translations: [Streptococcal pharyngitis] 06-08-2023 Episodic Otitis media and related conditions (1 source) Acute suppurative otitis media without spontaneous rupture of ear drum, left ear; Translations: [Acute suppurative otitis media of left ear without spontaneous rupture of tympanic membrane, recurrence not specified] Onset: 3 Episodic Residual codes; unclassified (1 source) Chews tobacco 11-12-2019 Episodic Screening and history of mental health and substance abuse codes (1 source) H/O: psychiatric disorder 09-13-2019 Episodic Thyroid disorders (1 source) Goiter 12-23-2021 Chronic Results Test Name Value Interpretation Reference Range Facility ED Prov Noteon 11-03-2023 ED Prov Note HPI: 11/03/2023, Time: @NOWNR@ Renny Godwin is a 28 y.o. female presenting to the ED for rash bilateral groins, beginning last few days ago. The complaint has been constant, moderate in severity, and worsened by nothing. No alleviating factors. No fever or chills ROS: Pertinent positives and negatives are stated within HPI, all other systems reviewed and are negative. PAST HISTORY Past Medical History: @[facility]@ Past Surgical History: has no past surgical history on file. Social History: reports that she has never smoked. She has never used smokeless tobacco. She reports that she does not currently use drugs. Family History: family history is not on file. The patient's home medications have been reviewed. Allergies: Patient has no known allergies. RESULTS All laboratory and radiology results have been personally reviewed by myself LABS: No results found for this or any previous visit. RADIOLOGY: Interpreted by Radiologist. No orders to display NURSING NOTES AND VITALS REVIEWED The nursing notes within the ED encounter and vital signs as below have been reviewed. BP 120/81 (BP Location: Left arm, Patient Position: Sitting) Pulse 95 Temp 98 degrees F (36.7 degrees C) (Oral) Resp 18 Ht 5' 8 Wt 72.6 kg (160 lb) SpO2 98% BMI 24.33 kg/m Oxygen Saturation Interpretation: Normal PHY SICAL EXAM Constitutional/General: Alert and oriented x3, well appearing, non toxic in NAD Head: NC/AT Eyes: PERRL, EOMI Mouth: Oropharynx clear, handling secretions, no trismus Neck: Supple, full ROM, no meningeal signs Pulmonary: Lungs clear to auscultation bilaterally, no wheezes, rales, or rhonchi. Not in respiratory distress Cardiovascular: Regular rate and rhythm, no murmurs, gallops, or rubs. 2+ distal pulses Abdomen: Soft, non tender, non distended, Extremities: Moves all extremities x 4. Warm and well perfused Skin: warm and dry . Red papular rash bilateral inner thighs consistent with contact dermatitis Neurologic: GCS 15, Psych: Normal Affect --- ED COURSE/MEDICAL DECISION MAKING - Medications - No data to display Medical Decision Making: Will treat with betamethasone cream Counseling: The emergency provider has spoken with the patient and discussed today's results, in addition to providing specific details for the plan of care and counseling regarding the diagnosis and prognosis. Questions are answered at this time and they are agreeable with the plan. ------ IMPRESSION AND DISPOSITION ------ IMPRESSION 1. Rash DISPOSITION Disposition: discharged to home Patient condition is stable Summation Patient Course: Stable ED Medications administered this visit: Medications - No data to display New Prescriptions from this visit: New Prescriptions betamethasone valerate (VALISONE) 0.1 % cream Apply topically 2 (two) times a day . Follow-up: [facility] [place] [address] [id number] [facility] [id number] In 1 week Final Impression: 1. Rash (Please note that portions of this note were completed with a voice recognition program. Efforts were made to edit the dictations but occasionally words are mis-transcribed.) Mary Moreland MD 11/03/23 0934 AUTHENTICATED BY MARY MORELAND, ON 11/03/2023 09:34:15 [facility] RENNY GODWIN ([id number]) 1995 [facility] Date Time Provider Department 06/08/23 3:15 PM JUDIE GAMBOA [facility] During your visit today, we recorded the following information about you: Temperature Pulse Respiration Blood pressure 97.9 degrees 70/minute 18/minute 113/77 Weight Last Period 81 kg 06/06/23 Judie Gamboa APRN.HEADER SETUP OPERATOR 06/08/2023 4:27 PM Signed This note was created using NoteWriter. Subjective Renny Parra Tato is a 27 year old female. 27 year old female with no PMH presents for illness. Acute onset 2 weeks ago +runny nose + cough +sinus pressure + congestion +sore throat Denies fever or chills Denies SOB or dyspnea Denies abdominal pain Denies N/V/D Has rosa using Tylenol Presents today related to the sore throat continues to bother her. Seems to be worsening The history is provided by the patient. No spanish language lecturer was used. Sore Throat This is a new problem. The current episode started 1 to 4 weeks ago. The problem has been gradually worsening. Neither side of throat is experiencing more pain than the other. There has been no fever. The pain is at a severity of 7/10. The pain is moderate. Associated symptoms include congestion, coughing, headaches and swollen glands. Pertinent negatives include no abdominal pain, diarrhea, drooling, ear discharge, ear pain, hoarse voice, plugged ear sensation, neck pain, shortness of breath, stridor, trouble swallowing or vomiting. She has had no exposure to strep. She has tried nothing for the symptoms. The treatment provided no relief. PAST MEDICAL HISTORY Diagnosis Date Bronchitis Irregular menses Migraines stress related NEGATIVE MEDICAL HISTORY PAST SURGICAL HISTORY Procedure Laterality Date ELBOW SURGERY HX Right PAST SURGICAL HISTORY OF orif RIGHT elbow with screws ALLERGIES Penicillin G MEDICATIONS amoxicillin-clavulanate potassium (AUGMENTIN) 875-125 mg per tablet Take 1 tablet by mouth two times a day for 10 days. vit37/iron/folic acid (PRENATA ORAL) Take by mouth. (Patient not taking: Reported on 02/27/2023) cetirizine (ZYRTEC) 10 mg tablet Take 1 tablet by mouth once daily. (Patient not taking: Reported on 02/27/2023) Hqplvjg-Pbrmtqfdlvsie-Kappn ine (GOODY'S EXTRA STRENGTH) 500-325-65 mg pwpk Take 1 Packet by mouth as needed (for headaches). (Patient not taking: Reported on 02/27/2023) naproxen (NAPROSYN) 500 mg tablet Take 1 tablet by mouth twice daily as needed. for pain. Take with food. (Patient not taking: Reported on 02/27/2023) FAMILY HISTORY Problem Relation Age of Onset None Mother None Father Social History Tobacco Use Smoking status: Never Smokeless tobacco: Current Types: Chew Vaping Use Vaping Use: Never used Substance Use Topics Alcohol use: Yes Comment: Soccially Review of Systems Constitutional: Negative for chills, diaphoresis and fatigue. HENT: Positive for congestion, postnasal drip, sinus pressure, sinus pain and sore throat. Negative for drooling, ear discharge, ear pain, hoarse voice and trouble swallowing. Eyes: Negative for pain, discharge, redness and itching. Respiratory: Positive for cough. Negative for shortness of breath and stridor. Gastrointestinal: Negative for abdominal pain, diarrhea and vomiting. Musculoskeletal: Negative for neck pain. Skin: Negative for color change, pallor, rash and wound. Allergic/Immunologic: Negative for environmental allergies, food allergies and immunocompromised state. Neurological: Positive for headaches. Negative for dizziness, facial asymmetry and light-headedness. Hematological: Negative for adenopathy. Does not bruise/bleed easily. Psychiatric/Behavioral: Negative for agitation and behavioral problems. Objective BP 113/77 Pulse 70 Temp 36.6 ?C (97.9 ?F) Resp 18 Wt 81 kg (178 lb 9.2 oz) LMP 06/06/2023 (Exact Date) SpO2 100% BMI 27.15 kg/m? Physical Exam Vitals and nursing note reviewed. Constitutional: General: She is not in acute distress. Appearance: Normal appearance. She is normal weight. She is not ill-appearing, toxic-appearing or diaphoretic. HENT: Head: Normocephalic and atraumatic. Right Ear: Ear canal and external ear normal. Left Ear: Ear canal and external ear normal. Nose: Congestion present. No rhinorrhea. Mouth/Throat: Mouth: Mucous membranes are moist. Pharynx: Posterior oropharyngeal erythema (2 + enlarged bilateral. Uvula midline.) present. No oropharyngeal exudate. Eyes: General: Right eye: No discharge. Left eye: No discharge. Extraocular Movements: Extraocular movements intact. Conjunctiva/sclera: Conjunctivae normal. Pupils: Pupils are equal, round, and reactive to light. Cardiovascular: Rate and Rhythm: Normal rate and regular rhythm. Pulses: Normal pulses. Heart sounds: Normal heart sounds. No murmu (more content not included)... Normal [facility] STREP A MOLECULAR (POC)on Procedural Control Valid [facility] Strep A (POCT) Positive Abnormal Negative [facility] CNOVon 02-27-2023 CNOV Office Visit (UCWSTR ) RENNY GODWIN ([id number]) 1995 [place] [facility] Date Time Provider Department 02/27/23 1:45 PM JHONNY MAHAJAN [facility] During your visit today, we recorded the following information about you: Temperature Pulse Respiration Blood pressure 97.9 degrees 63/minute 21/minute 102/68 Weight 85.3 kg Jhonny Mahajan PA 02/27/2023 1:45 PM Signed This note was created using LUMObackriter. Subjective Renny Godwin is a 27 year old female. [id number]-[id number] female presents for congestion, sinus pain, sinus pressure and left ear pain. Patient states she has had congestion for about 2 weeks now. She has sinus pressure in her face. She started getting left ear pain yesterday. She has history of ear infections in the past. No fevers. No vomiting or diarrhea. No other complaints. PAST MEDICAL HISTORY Diagnosis Date Bronchitis Irregular menses Migraines stress related NEGATIVE MEDICAL HISTORY PAST SURGICAL HISTORY Procedure Laterality Date ELBOW SURGERY HX Right PAST SURGICAL HISTORY OF orif RIGHT elbow with screws ALLERGIES Penicillin G MEDICATIONS amoxicillin-clavulanate potassium (AUGMENTIN) 875-125 mg per tablet Take 1 tablet by mouth two times a day for 7 days. vit37/iron/folic acid (PRENATA ORAL) Take by mouth. (Patient not taking: Reported on 02/27/2023) cetirizine (ZYRTEC) 10 mg tablet Take 1 tablet by mouth once daily. (Patient not taking: Reported on 02/27/2023) Doesqds-Ccezurtsrmhtz-Wsnfj ine (GOODY'S EXTRA STRENGTH) 500-325-65 mg pwpk Take 1 Packet by mouth as needed (for headaches). (Patient not taking: Reported on 02/27/2023) naproxen (NAPROSYN) 500 mg tablet Take 1 tablet by mouth twice daily as needed. for pain. Take with food. (Patient not taking: Reported on 02/27/2023) FAMILY HISTORY Problem Relation Age of Onset None Mother None Father Social History Tobacco Use Smoking status: Never Smokeless tobacco: Current Types: Chew Vaping Use Vaping Use: Never used Substance Use Topics Alcohol use: Yes Comment: Soccially Review of Systems Constitutional: Negative for chills and fever. HENT: Positive for congestion, ear pain and sinus pressure. Negative for sore throat. Respiratory: Negative for cough and shortness of breath. Cardiovascular: Negative for chest pain. Gastrointestinal: Negative for diarrhea and vomiting. Objective BP 102/68 Pulse 63 Temp 36.6 ?C (97.9 ?F) Resp 21 Wt 85.3 kg (188 lb) LMP 05/09/2018 SpO2 98% BMI 28.59 kg/m? Physical Exam Vitals and nursing note reviewed. Constitutional: General: She is not in acute distress. Appearance: Normal appearance. She is not toxic-appearing. HENT: Right Ear: Tympanic membrane and ear canal normal. Left Ear: Ear canal normal. Tympanic membrane is erythematous and bulging. Nose: Mucosal edema and congestion present. Right Sinus: Maxillary sinus tenderness present. Left Sinus: Maxillary sinus tenderness present. Mouth/Throat: Mouth: Mucous membranes are moist. Pharynx: No oropharyngeal exudate or posterior oropharyngeal erythema. Eyes: Conjunctiva/sclera: Conjunctivae normal. Cardiovascular: Rate and Rhythm: Normal rate and regular rhythm. Pulmonary: Effort: Pulmonary effort is normal. Breath sounds: Normal breath sounds. Neurological: Mental Status: She is alert. Assessment and Plan ASSESSMENT/PLAN: 1. Bacterial sinusitis - ICD9: 473.9, 041.9, ICD10: J32.9, B96.89 (primary diagnosis) - Will begin treatment with Augmentin 875 mg PO BID for 7 days - Supportive care with plenty of fluids, rest, and analgesia prn. -Recommend decongestants OTC. 2. Acute otitis media, left - ICD9: 382.9, ICD10: H66.92 - Will begin treatment with Augmentin 875 mg PO BID for 7 days to cover ear and sinusitis. -Patient states she has tolerated amoxicillin in the past. Allergy to penicillin G is just GI upset. Diagnosis and treatment plan were discussed and questions were answered to the patient's satisfaction. Pt acknowledged understanding of concepts and follow up plan. Specific signs and symptoms that would indicate the need for higher level of care were discussed in detail warranting prompt ER evaluation. SUNNI Morales Referring Provider: SELF [[id number]] Allergies As of Date: 02/27/2023 Noted Allergy Reaction PENICILLIN G 05/14/2022 8 - GI Upset Date Reviewed: 02/27/2023 Reviewed by: Hallie Lou MA - Fully Assessed Reason for Visit: Nasal Congestion [235] Cmt: Runny nose x 1 week, left ear pain x 1 day Primary Visit Diagnosis:Bacterial sinusitis [J32.9, B96.89] Other Visit Diagnosis:Acute otitis media, left [H66.92] Order(s):amoxicillin-clavul anate potassium (AUGMENTIN) 875-125 mg per tabletTake 1 tablet by mouth two times a day for 7 days.Disp: 14 tabletRfl: 0 Prescriptions as of 02/27/2023 - amoxicillin-clavulanate potassiu (more content not included)... Normal [facility] ED NOTEon 05-14-2022 ED NOTE HNO ID: [id number] Author: Meredith Castañeda RN Service: Emergency Medicine Author Type: Registered Nurse Type: ED Notes Filed: 05/14/2022 2:32 AM Note Text: Patient expresses dissatisfaction with motrin for pain control, states she came to the ER tonight because the pain is really bad and she needs to sleep. Offered to notify Dr Lu of patient's concerns. Patient refuses. Ambulates from ER [facility] ED NOTE HNO ID: [id number] Author: Meredith Castañeda RN Service: Emergency Medicine Author Type: Registered Nurse Type: ED Notes Filed: 05/14/2022 2:31 AM Note Text: Dc instr to fu w pmd, return prn. Meds as rxd. [facility] ED NOTE HNO ID: [id number] Author: Meredith Castañeda RN Service: Emergency Medicine Author Type: Registered Nurse Type: ED Notes Filed: 05/14/2022 2:29 AM Note Text: Physician advised omnicef not available. Ibuprofen given. Paper prescription x 4. [facility] ED NOTE HNO ID: [id number] Author: Racquel Shepard RN Service: Emergency Medicine Author Type: Registered Nurse Type: ED Notes Filed: 05/14/2022 1:47 AM Note Text: Patient seen at urgent care 10 days ago for left ear infection - put on atb and finished atb but ear never got any better. Today 3p sudden pain to ear - patient states pain becoming more intense and stabbing to leftear Normal [facility] ED NOTE HNO ID: [id number] Author: Racquel Shepard, LILLY Service: Emergency Medicine Author Type: Registered Nurse Type: ED Notes Filed: 05/14/2022 1:45 AM Note Text: Normal [facility] ED PROV NOTEon 05-14-2022 ED PROV NOTE HNO ID: [id number] Author: Galdino uL MD Service: Emergency Medicine Author Type: Physician Type: ED Provider Notes Filed: 05/14/2022 4:33 AM Note Text: ED Provider Note Patient Name: Renny Godwin : 1995 SERVICE DATE: 05/14/22 History Patient presents with: Ear Pain This a 26-year-old female presenting with left ear pain. She states that approximately 10 days ago she had URI symptoms mostly cough and nasal congestion and she was seen in urgent care and told that she had a left ear infection. She states she was put on doxycycline and a cough medication. She states that at that time she was not having ear pain. She states now she is having ear pain and its worsened since 3 PM today. She states that she tried Tylenol without relief. She states she finished her antibiotic. She states the cough and congestion are better but not resolved. She states she took home COVID testing which was negative but was not tested at the urgent care. No fevers or chills. She does feel like the hearing is muffled on that side. No shortness of breath. PAST MEDICAL HISTORY Diagnosis Date Bronchitis Migraines stress related PAST SURGICAL HISTORY Procedure Laterality Date PAST SURGICAL HISTORY OF orif RIGHT elbow with screws FAMILY HISTORY Problem Relation Age of Onset None Mother None Father Social History Tobacco Use Smoking status: Never Smokeless tobacco: Current Types: Chew Vaping Use Vaping Use: Never used Substance and Sexual Activity Alcohol use: Yes Comment: / Drug use: Not on file Sexual activity: Yes Comment: trying to get ALLERGIES Allergen Reactions Penicillin G GI Upset Review of systems: All other pertinent systems reviewed and negative. Physical Exam Vitals [05/14/22 0142] BP Pulse Temp Temp src Resp SpO2 Weight Height 140/81 (!) 98 36.7 ?C (98 ?F) Temporal Art 22 98 % 100.2 kg (220 lb 14.4 oz) -- Physical Exam Constitutional: Appearance: She is not ill-appearing. HENT: Head: Normocephalic and atraumatic. Right Ear: Tympanic membrane, ear canal and external ear normal. Left Ear: No drainage. A middle ear effusion is present. No mastoid tenderness. Tympanic membrane is erythematous and bulging. Tympanic membrane is not perforated. Ears: Comments: There is also some mild EAC erythema and swelling on the left. Nose: Congestion present. Comments: Turbinate hypertrophy and erythema bilateral nares right greater than left Mouth/Throat: Mouth: Mucous membranes are moist. Pharynx: No oropharyngeal exudate or posterior oropharyngeal erythema. Eyes: Extraocular Movements: Extraocular movements intact. Conjunctiva/sclera: Conjunctivae normal. Pupils: Pupils are equal, round, and reactive to light. Cardiovascular: Rate and Rhythm: Normal rate and regular rhythm. Pulses: Normal pulses. Heart sounds: Normal heart sounds. Pulmonary: Effort: Pulmonary effort is normal. Breath sounds: Normal breath sounds. Musculoskeletal: Cervical back: Neck supple. No rigidity. Lymphadenopathy: Cervical: No cervical adenopathy. Skin: General: Skin is warm and dry. Findings: No erythema or rash. Neurological: Mental Status: She is alert. Cranial Nerves: No cranial nerve deficit. Psychiatric: Mood and Affect: Affect is tearful. Speech: Speech normal. Diagnostic Testing ED Labs Ordered and Reviewed - No data to display Procedures ED Course / Clinical Impression Clinical Impressions as of 05/14/22 0427 Acute suppurative otitis media of left ear without spontaneous rupture of tympanic membrane, recurrence not specified Acute otitis externa of left ear, unspecified type MDM / Disposition / Plan 26-year-old female presenting with left ear pain already reportedly on doxycycline for this. On exam she has signs of otitis media and possibly otitis externa as well. She was given ibuprofen for pain here, had already taken Tylenol, she was written for antibiotics Omnicef due to penicillin allergy as well as decongestant and otic drop. She was recommended to follow-up with her primary care provider. Diagnosis and chief complaint specific return precautions were reviewed in detail with the patient. The patient voiced understanding. Follow-up instructions reviewed with the patient. The patient voiced understanding. Disposition The patient was discharged. Counseled patient regarding suspected diagnosis. As well as the need for follow-up. Discharged home with verbal and written instructions. They were instructed to return as needed for persistent or worsening symptoms or any new concerns. The following prescription medication(s) were considered but ultimately not given after discussion with patient/family: pain medication Reasons for not prescribing include the following: advised patient to try ibuprofen, tylenol and the antiobiotic and this would likely relieve the joe (more content not included)... Normal [facility] US THYROIDon 02-03-2022 US THYROID ORIGINAL EXAMINATION: ULTRASOUND OF THE THYROID WITH COLOR DOPPLER FLOW [id number]/16/2022 5:03 pm Ultrasound Thyroid COMPARISON: None HISTORY: ORDERING SYSTEM PROVIDED HISTORY: Reason for Exam: thyroid enlargement on exam, obesity FINDINGS: Size right thyroid lobe: 5.2 x 1.3 x 1.9 cm Size left thyroid lobe: 5.9 x 1.3 x 1.5 cm Size isthmus: 0.3 cm Texture: Homogenous with normal vascularity A few 2-3 mm hypoechoic nodules are present in the right and left thyroid lobes. These are nonsuspicious findings of no clinical significance. No suspicious thyroid nodule is seen. IMPRESSION: Thyroid is normal in size and homogeneous. There is no suspicious thyroid nodule that requires follow-up imaging. I have personally reviewed the images of this examination and agree with the resident's findings and interpretation. Interpreted by: Soto Gilmore MD Preliminary Report By: Mp Azul Electronically signed By Soto Gilmore MD Dictated Date: 02/03/2022 10:57:49 AM Prelim Date: 02/03/2022 12:36:15 PM Sign Date: 02/03/2022 12:36:15 PM Ordering Provider: FRANKY PONCE [facility] [place] CORONAVIRUS 2019, SCREEN ASY MPTOMATICon 11-08-2019 CORONAVIRUS 2019,PCR NOT DETECTED Normal Not Detected [facility] Comment on above: Result Comment: This assay is designed to detect the N, ORF1ab and/or S genes of SARS-CoV-2 via nucleic acid amplification. A Negative (NOT DETECTED) result does not preclude 2019-nCoV infection since the adequacy of sample collection and/or low viral burden may result in presence of viral nucleic acids below the clinical sensitivity of this test method. Negative (NOT DETECTED) result should not be used as the sole basis for treatment or other patient management decisions. Rather negative results should be combined with clinical observations, patient history, and epidemiological information to make patient management decisions. Fact sheet for providers: https://www.fda.gov/media/265106/download Fact sheet for patients: https://www.fda.gov/media/106310/download This test has received FDA Emergency Use Authorization (EUA) and has been verified by [facility] ([facility]). This test is only authorized for the duration of time that circumstances exist to justify the authorization of the emergency use of in vitro diagnostic tests for the detection of SARS-CoV-2 virus and/or diagnosis of COVID-19 infection under section 564(b)(1) of the Act, 21 U.S.C. 360bbb-3(b)(1), unless the authorization is terminated or revoked sooner. [facility] is certified under CLIA-88 as qualified to perform high complexity testing. Testing is performed in the [facility] laboratories located at [address] [place] [address]. Performed By: #### C [facility] #### [address] [place] [address] CORONAVIRUS 2019, SCREEN ASY MPTOMATICon 11-07-2019 Lab Specimen Source Nasal, Nasopharyngeal Normal [facility] Comment on above: Performed By: #### C [facility] #### [address] [place] [address] Initial Visit (Gastroenterol ogy)on 10-28-2019 Initial Visit (Gastroenterology) Diagnoses/Problems Assessed Rectal bleeding (569.3) (K62.5) Orders Rectal bleeding Start: PEG-3350/Electrolytes 236 GM Oral Solution Reconstituted; TAKE DIRECTED Rx By: Lesvia Billingsley; Dispense: 0 Days ; #:1 X 4000 ML Bottle; Refill: 0;For: Rectal bleeding; BONNIE = N; Sent To: [facility]; Last Updated By: System[employer]ivatives; 10/28/2019 10:09:43 AM Colonoscopy; Status:Hold For - Scheduling; Requested for:28Oct2019; Perform:[facility]; Due:26Jan2020;Ordered; For:Rectal bleeding; Ordered By:Lesvia Billingsley; Patient competent to provide consent? : Yes-pt mentally competent to provide consent SocHx: Chews tobacco Tobacco Use Screening; Status:Complete; Done: 28Oct2019 Perform:Not Applicable;Ordered; For:SocHx: Chews tobacco; Ordered By:Amita Edouard; Patient Discussion/Summary 1. The diagnosis and evaluation options were discussed with the patient. A colonoscopy was recommended and scheduled. The procedure and sedation were discussed. Risks including but not limited to bleeding, perforation, reaction to medication, missed polyps, damage to other organs, and adverse cardiopulmonary events were discussed. The patient?s questions were answered. Patient was instructed about not driving the day of the exam after being sedated. 2. The patient appears medically stable for sedation and endoscopy. Chief Complaint An interactive audio and video telecommunication system which permits real time communications between the patient (at the originating site) and provider (at the distant site) was utilized to provide this telehealth service. Verbal consent was requested and obtained from RENNY GODWIN on this date, 10/28/2019 10:00 AM , for a telehealth visit. Rectal bleeding History of Present [id number] female seen today via virtual visit for a several year history of intermittent rectal bleeding. She believes initial initial onset was in high school and continuously occurs every 3-4 months. Blood is always bright red in color with occasional clots located in the toilet mixed, mixed with her stool, and on the toilet tissue although bleeding is not always accompanied by a bowel movement. She is certain that blood is coming from the rectum and is not from menstrual bleeding. She denies hemorrhoids, anorectal pain or burning, or fecal straining. She reports normal bowel movements without abdominal pain or cramping. She has 1 daughter delivered vaginally 8 months ago. Aside from occasional Tylenol, she denies anti-inflammatory use. There is no arthralgias, eye pain, or skin manifestations. She has no family history of colorectal disease. Review of Systems Const: Denies fatigue, fever and weight loss. CV: Denies chest pain, pacemaker, palpitations and valvular heart disease. Resp: Denies cough, sleep apnea, SOB and snoring. GI: Denies symptoms other than stated above. Musculo: Denies joint pain and muscle pain. Skin: Denies hives and rash. Neuro: Denies seizures and stroke. Psych: Reports anxiety and depression. Endocrine: Denies intolerance to cold, hot flashes and impaired glucose tolerance. Pardeep/Lymph: Denies anemia, blood transfusions, chemotherapy, enlarged lymph nodes and radiation treatment of any kind. Active Problems Problems Rectal bleeding (569.3) (K62.5) Past Medical History Problems History of Anxiety and depression (300.00,311) (F41.9,F32.9) History of Chlamydia infection (079.98) (A74.9) Denied: History of complications due to general anesthesia History of dizziness (V13.89) (Z87.898) History of suicidal ideation (V11.8) (Z86.59) History of Migraine (346.90) (G43.909) History of TMJ syndrome (524.69) (M26.629) Surgical History Problems Denied: History of Colonoscopy History of Elbow surgery Denied: History of Esophagogastroduodenoscopy Family History Other Denied: Family history of malignant neoplasm of colon Social History Problems Chews tobacco (305.1) (Z72.0) Diet is normal for age History of body piercing (V45.89) (Z98.890) EARS , [employer] History of tattoo (709.09) (L81.8) No advance directives (V49.89) (Z78.9) No illicit drug use Social alcohol use (V49.89) (Z78.9) Allergies Medication No Known Drug Allergies Recorded By: Amita Edouard; 10/28/2019 9:43:49 AM NonMedication No Known Food Allergies Recorded By: Amita Edouard; 10/28/2019 9:43:49 AM Current Meds Medication NameInstruction Zoloft 100 MG Oral TabletTAKE 1 TABLET DAILY. Physical Exam Patient is alert and oriented and in no apparent distress. Patient is speaking in complete sentences without conversational dyspnea. No observed pallor or jaundice. Signatures Electronically signed by : Lesvia Billingsley PA-C; Oct 28 2019 10:10AM EST (Author) Normal [facility] CNOVon 10-13-2018 CNOV Office Visit (UCWSTR ) RENNY GODWIN ([id number]) 1995 F Date Time Provider Department 10/13/18 10:30 AM MARLEE DEVLIN [facility] During your visit today, we recorded the following information about you: Temperature Pulse Respiration Blood pressure 97.9 degrees 96/minute 12/minute 112/68 Weight 91.6 kg Marlee Devlin APRN.HEADER SETUP OPERATOR 10/13/2018 11:02 AM Signed Subjective The history is provided by the patient. No spanish language lecturer was used. HPI Renny Godwin is a 23 year old female who presents today for CC of bilateral ear pressure, cough, and sore throat that started 3 weeks ago, she is also having a runny nose, post nasal drainage. She has used minimal OTC, took 3 days of Keflex 2 weeks ago without relief. She is currently 25 weeks , denies any LOF, good movement, no bleeding. H/o AOM, sinusitis. BP 112/68 Pulse 96 Temp 36.6 ?C (97.9 ?F) (Right Tympanic) Resp 12 Wt 91.6 kg (202 lb) BMI 30.71 kg/m? Social History Socioeconomic History Marital status: Spouse name: Not on file Number of children: Not on file Years of education: Not on file Highest education level: Not on file Occupational History Not on file Social Needs Financial resource strain: Not on file Food insecurity: Worry: Not on file Inability: Not on file Transportation needs: Medical: Not on file Non-medical: Not on file Tobacco Use Smoking status: Never Smoker Smokeless tobacco: Current User Types: Chew Substance and Sexual Activity Alcohol use: Yes Alcohol/week: 5.0 standard drinks Types: 2 Cans of Beer (12oz) per week Comment: Soccially Drug use: No Sexual activity: Yes Partners: Male Lifestyle Physical activity: Days per week: Not on file Minutes per session: Not on file Stress: Not on file Relationships Social connections: Talks on phone: Not on file Gets together: Not on file Attends orthodoxy service: Not on file Active member of club or organization: Not on file Attends meetings of clubs or organizations: Not on file Relationship status: Not on file Intimate partner violence: Fear of current or ex partner: Not on file Emotionally abused: Not on file Physically abused: Not on file Forced sexual activity: Not on file Other Topics Concerns: Not on file Social History Narrative Not on file PAST MEDICAL HISTORY Diagnosis Date - Irregular menses - NEGATIVE MEDICAL HISTORY I have confirmed and edited as necessary, the [facility] Review of Systems Constitutional: Negative for chills and fever. HENT: Positive for congestion, ear pain and sore throat. Negative for sinus pain. Respiratory: Positive for cough. Negative for sputum production, shortness of breath and wheezing. Cardiovascular: Negative for chest pain. Musculoskeletal: Negative for myalgias. Neurological: Negative for headaches. Objective Physical Exam Constitutional: She is well-developed, well-nourished, and in no distress. HENT: Head: Normocephalic and atraumatic. Right Ear: Tympanic membrane, external ear and ear canal normal. Left Ear: Tympanic membrane and ear canal normal. Nose: Mucosal edema and rhinorrhea present. Right sinus exhibits maxillary sinus tenderness and frontal sinus tenderness. Left sinus exhibits maxillary sinus tenderness and frontal sinus tenderness. Mouth/Throat: Uvula is midline, oropharynx is clear and moist and mucous membranes are normal. No oropharyngeal exudate, posterior oropharyngeal edema, posterior oropharyngeal erythema or tonsillar abscesses. Thick Clear Post Nasal Drainage Pulmonary/Chest: Effort normal and breath sounds normal. She has no decreased breath sounds. She has no wheezes. She has no rhonchi. Lymphadenopathy: Head (right side): No submental, no submandibular and no tonsillar adenopathy present. Head (left side): No submental, no submandibular and no tonsillar adenopathy present. She has no cervical adenopathy. Neurological: She is alert. Skin: Skin is warm and dry. Psychiatric: Affect normal. Nursing note and vitals reviewed. ASSESSMENT/PLAN: 1. Sore throat - ICD9: 462, ICD10: J02.9 (primary diagnosis) - suspect viral - Rapid Strep negative in the office today - Discussed supportive care treatment with fluids, rest and analgesia. - The patient may also use warm salt water gargles, throat lozenges and/or OTC throat spray as needed. - The patient should follow up in one week if symptoms persist or worsen - Call back if drooling, increased temperature, symptoms of dehydration and/or still sick in one week - RAPID STREP TEST B/O 2. Acute non-recurrent pansinusitis - ICD9: 461.8, ICD10: J01.40 - Will begin treatment with Amoxicillin for 10 days - Supportive care with plenty of fluids, rest. - Follow up in one week if symptoms persist or worsen. Zyrtec 10 mg By mouth daily at bedtime OTC Robitussin or Delsym as needed 3. Non-recurrent acute serous otitis media of left ear - ICD9: 381.01, ICD10: H65.02 - Will begin treatment with Amoxicillin for 10 days Tylenol (generic acetaminophen) 500 mg-2 tabs every 8 hrs. as needed for fever and aches * Seek medical care immediately, call 911, go to ER if you have chest pain, difficulty breathing, shortness of breath, inability to swallow. Diagnosis and treatment plan were discussed and questions were answered to the patient's satisfaction. Pt acknowledged understanding of concepts and follow up plan. Specific signs and symptoms that would indicate the need for higher level of care were discussed in detail warranting prompt ER evaluation. Marlee Devlin APRN.SHYANNE Devlin APRN.CNP 10/13/2018 11:01 AM Addendum ASSESSMENT/PLAN: 1. Sore throat - ICD9: 462, ICD10: J02.9 (primary diagnosis) - suspect viral - Rapid Strep negative in the office today - Discussed supportive care treatment with fluids, rest and analgesia. - The patient may also use warm salt water gargles, throat lozenges and/or OTC throat spray as needed. - The patient should follow up in one week if symptoms persist or worsen - Call back if drooling, increased temperature, symptoms of dehydration and/or still sick in one week - RAPID STREP TEST B/O 2. Acute non-recurrent pansinusitis - ICD9: 461.8, ICD10: J01.40 - Will begin treatment with Amoxicillin for 10 days - Supportive care with plenty of fluids, rest. - Follow up in one week if symptoms persist or worsen. Zyrtec 10 mg By mouth daily at bedtime OTC Robitussin or Delsym as needed 3. Non-recurrent acute serous otitis media of left ear - ICD9: 381.01, ICD10: H65.02 - Will begin treatment with Amoxicillin for 10 days Tylenol (generic acetaminophen) 500 mg-2 tabs every 8 hrs. as needed for fever and aches * Seek medical care immediately, call 911, go to ER if you have chest pain, difficulty breathing, shortness of breath, inability to swallow. Referring Provider: SELF [[id number]] Allergies As of Date: 10/13/2018 (No Known Allergies) Date Reviewed: 10/13/2018 Reviewed by: Marlee Devlin - Fully Assessed Reason for Visit: Cough [28] Cmt: sore throat,ear ache Reason For Visit History Recorded Primary Visit Diagnosis:Sore throat [J02.9] Other Visit Diagnoses:Acute non-recurrent pansinusitis [J01.40] Non-recurrent acute serous otitis media of left ear [H65.02] Order(s):RAPID STREP TEST B/O [0061364] Order #: [id number] amoxicillin (AMOXIL) 875 mg tabletTake 1 tablet by mouth twice daily for 10 days.Disp: 20 tabletRfl: 0 cetirizine (ZYRTEC) 10 mg tabletTake 1 tablet by mouth once daily.Disp: 30 tabletRfl: 0 Prescriptions as of 10/13/2018 Sig: PRENATA ORAL Take by mouth. AMOXICILLIN 875 MG TABLET Take 1 tablet by mouth twice * CETIRIZINE 10 MG TABLET Take 1 tablet by mouth once d* ASPIRIN 500 MG-ACETAMINOPHEN * Take 1 Packet by mouth as nee* NAPROXEN 500 MG TABLET Take 1 tablet by mouth twice * Problem List As Of Date: 10/13/2018 (None) Other instructions from your clinician: ASSESSMENT/PLAN: 1. Sore throat - ICD9: 462, ICD10: J02.9 (primary diagnosis) - suspect viral - Rapid Strep negative in the office today - Discussed supportive care treatment with fluids, rest and analgesia. - The patient may also use warm salt water gargles, throat lozenges and/or OTC throat spray as needed. - The patient should follow up in one week if symptoms persist or worsen - Call back if drooling, increased temperature, symptoms of dehydration and/or still sick in one week - RAPID STREP TEST B/O 2. Acute non-recurrent pansinusitis - ICD9: 461.8, ICD10: J01.40 - Will begin treatment with Amoxicillin for 10 days - Supportive care with plenty of fluids, rest. - Follow up in one week if symptoms persist or worsen. Zyrtec 10 mg By mouth daily at bedtime OTC Robitussin or Delsym as needed 3. Non-recurrent acute serous otitis media of left ear - ICD9: 381.01, ICD10: H65.02 - Will begin treatment with Amoxicillin for 10 days Tylenol (generic acetaminophen) 500 mg-2 tabs every 8 hrs. as needed for fever and aches * Seek medical care immediately, call 911, go to ER if you have chest pain, difficulty breathing, shortness of breath, inability to swallow. Prescriptions ordered this encounter Disp Refills Start End AMOXICILLIN 875 MG TABLET 20 t* 0 10/13/2018 10/23/2018 Route: ORAL Sig: Take 1 tablet by mouth twice daily for 10 days. CETIRIZINE 10 MG TABLET 30 t* 0 10/13/2018 Route: ORAL Sig: Take 1 tablet by mouth once daily. Encounter Status:Closed by MARLEE DEVLIN CNP on 10/13/18 [facility] PROGRESSon 10-13-2018 PROGRESS HNO ID: [id number] Author: Marlee Devlin Service: ? Author Type: Nurse Practitioner Type: Progress Notes Filed: 10/13/2018 11:02 AM Note Text: Subjective The history is provided by the patient. No spanish language lecturer was used. KATERIN Godwin is a 23 year old female who presents today for CC of bilateral ear pressure, cough, and sore throat that started 3 weeks ago, she is also having a runny nose, post nasal drainage. She has used minimal OTC, took 3 days of Keflex 2 weeks ago without relief. She is currently 25 weeks , denies any LOF, good movement, no bleeding. H/o AOM, sinusitis. BP 112/68 Pulse 96 Temp 36.6 ?C (97.9 ?F) (Right Tympanic) Resp 12 Wt 91.6 kg (202 lb) BMI 30.71 kg/m? Social History Socioeconomic History Marital status: Spouse name: Not on file Number of children: Not on file Years of education: Not on file Highest education level: Not on file Occupational History Not on file Social Needs Financial resource strain: Not on file Food insecurity: Worry: Not on file Inability: Not on file Transportation needs: Medical: Not on file Non-medical: Not on file Tobacco Use Smoking status: Never Smoker Smokeless tobacco: Current User Types: Chew Substance and Sexual Activity Alcohol use: Yes Alcohol/week: 5.0 standard drinks Types: 2 Cans of Beer (12oz) per week Comment: Soccially Drug use: No Sexual activity: Yes Partners: Male Lifestyle Physical activity: Days per week: Not on file Minutes per session: Not on file Stress: Not on file Relationships Social connections: Talks on phone: Not on file Gets together: Not on file Attends orthodoxy service: Not on file Active member of club or organization: Not on file Attends meetings of clubs or organizations: Not on file Relationship status: Not on file Intimate partner violence: Fear of current or ex partner: Not on file Emotionally abused: Not on file Physically abused: Not on file Forced sexual activity: Not on file Other Topics Concerns: Not on file Social History Narrative Not on file PAST MEDICAL HISTORY Diagnosis Date - Irregular menses - NEGATIVE MEDICAL HISTORY I have confirmed and edited as necessary, the [facility] Review of Systems Constitutional: Negative for chills and fever. HENT: Positive for congestion, ear pain and sore throat. Negative for sinus pain. Respiratory: Positive for cough. Negative for sputum production, shortness of breath and wheezing. Cardiovascular: Negative for chest pain. Musculoskeletal: Negative for myalgias. Neurological: Negative for headaches. Objective Physical Exam Constitutional: She is well-developed, well-nourished, and in no distress. HENT: Head: Normocephalic and atraumatic. Right Ear: Tympanic membrane, external ear and ear canal normal. Left Ear: Tympanic membrane and ear canal normal. Nose: Mucosal edema and rhinorrhea present. Right sinus exhibits maxillary sinus tenderness and frontal sinus tenderness. Left sinus exhibits maxillary sinus tenderness and frontal sinus tenderness. Mouth/Throat: Uvula is midline, oropharynx is clear and moist and mucous membranes are normal. No oropharyngeal exudate, posterior oropharyngeal edema, posterior oropharyngeal erythema or tonsillar abscesses. Thick Clear Post Nasal Drainage Pulmonary/Chest: Effort normal and breath sounds normal. She has no decreased breath sounds. She has no wheezes. She has no rhonchi. Lymphadenopathy: Head (right side): No submental, no submandibular and no tonsillar adenopathy present. Head (left side): No submental, no submandibular and no tonsillar adenopathy present. She has no cervical adenopathy. Neurological: She is alert. Skin: Skin is warm and dry. Psychiatric: Affect normal. Nursing note and vitals reviewed. ASSESSMENT/PLAN: 1. Sore throat - ICD9: 462, ICD10: J02.9 (primary diagnosis) - suspect viral - Rapid Strep negative in the office today - Discussed supportive care treatment with fluids, rest and analgesia. - The patient may also use warm salt water gargles, throat lozenges and/or OTC throat spray as needed. - The patient should follow up in one week if symptoms persist or worsen - Call back if drooling, increased temperature, symptoms of dehydration and/or still sick in one week - RAPID STREP TEST B/O 2. Acute non-recurrent pansinusitis - ICD9: 461.8, ICD10: J01.40 - Will begin treatment with Amoxicillin for 10 days - Supportive care with plenty of fluids, rest. - Follow up in one week if symptoms persist or worsen. Zyrtec 10 mg By mouth daily at bedtime OTC Robitussin or Delsym as needed 3. Non-recurrent acute serous otitis media of left ear - ICD9: 381.01, ICD10: H65.02 - Will begin treatment with Amoxicillin for 10 days Tylenol (generic acetaminophen) 500 mg-2 tabs every 8 hrs. as needed for fever and aches * Seek medical care immediately, call 911, go to ER if you have chest pain, difficulty breathing, shortness of breath, inability to swallow. Diagnosis and treatment plan were discussed and questions were answered to the patient's satisfaction. Pt acknowledged understanding of concepts and follow up plan. Specific signs and symptoms that would indicate the need for higher level of care were discussed in detail warranting prompt ER evaluation. Marlee Devlin APRN.HEADER SETUP OPERATOR Normal [facility] CNOVon 05-30-2018 CNOV Office Visit (REIAV) RENNY GODWIN ([id number]) 1995 F Date Time Provider Department 05/30/18 10:15 AM CAPRICE MONTGOMERY During your visit today, we recorded the following information about you: Pulse Blood pressure Weight Height 75/minute 126/66 100.5 kg 1.727 m Last Period 05/09/18 Tory Hess MD 07/22/2018 10:33 AM Signed [facility] Date: 05/30/2018 Consultation Requested By: Dr Jen Escobedo Renny Godwin is a 22 year old female presenting with the following history: HISTORY OF PRESENT ILLNESS: Renny Godwin is a 22 year old year old female with Together x 15 months and has been TTC since. has a 7 yo son from previous relationship. Irregular period q 21 days. 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 H/o Chlamydia when she was a teenager. Using tampon every hours. Feel lightheaded first day. Taking PNV in the past. Obstetric History T0 L0 SAB0 TAB0 Ectopic0 Multiple0 Live Births0 Fertility Evaluations and Treatments: Eval Checklist Results Date Comments HSG Hysteroscopy Laparoscopy OPK (Ovulation Predictor Kit) Ovarian [place] Saline Ultrasound Semen Analysis Ultrasound heart shaped uterus 04-18-18 Other (See comments) MENSTRUAL HISTORY: Menarche Age: [age] year old Length of Cycle: q 31-41 days Irregular Days: 5-7 days Menstrual Flow: Light,Heavy Menstrual Symptoms: Breast Tenderness,Mood Changes,Bloating,Cramping Patient's last menstrual period was 05/09/2018. PAST MEDICAL HISTORY Diagnosis Date - Irregular menses - NEGATIVE MEDICAL HISTORY PAST SURGICAL HISTORY Procedure Laterality Date - ELBOW SURGERY HX Right No family history on file. 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 No current facility-administered medications on file prior to visit. ALLERGIES: Patient has no known allergies. [facility] PAP Results: Normal Date: 04-04-18 HPV Results: Negative Date: 04-04-18 Blood Type: No results found for this basename: aborhd No results found for this basename: rubqnt,vzvg Assessment and Plan PCOS - discuss starting letrozole after HSG (if hsg normal) Septate uterus - pt decides not to have septoplasty unless she needs other surgery. Menorrhagia - ?from anovulatory. She will try naproxen. She knows that I might suggest DANDC. History of Chlamydia - HSG. I spent a total of 30 minutes face to face with the patient. Greater than 50% of the time was spent counseling and coordinating the care based on my plan and assessment as noted. Consultation requested by Dr. Escobedo for an opinion regarding PCOS and my recommendations will be communicated back to the requesting physician by way of shared Medical record or letter via US mail , MD signature - MD Tory Boggs MD Julie Tan, MD 05/30/2018 11:19 AM Signed INSTRUCTIONS FOR INFERTILITY TESTING Semen Analysis The semen samples that you have been asked to submit are important for diagnostic and therapeutic purposes. Please abstain from ejaculating 2-3 days prior to collecting the sample. The sample should be produced by masturbation. You will need to collect the ejaculate into the container supplied by the [facility] (you can get containers at your doctor's office). Do not use other plastic containers from home such as Tupperware as these containers as they may interfere with the test results. Lubricants and saliva also interfere with test results. If a collection condom is necessary, please request one at the Andrology lab and they will provide you with an appropriate collection condom. It is extremely important that the entire sample is collected in the container as the first few drops of ejaculate contain a major portion of sperm. If you do not collect the entire specimen, please inform the technologist. You can collect at home as long as you can get the sample to the Andrology lab within 1 hour of collecting. Please mary your name and time of collection on the container. You should carry the container close to your body. Collection rooms are available at all locations as well. An appointment is needed to ensure the lab has enough time to process your specimen. Please call [phone] to schedule. This test is done at the following centers: ): [address] [facility], [place] [address] [facility] [address] [facility] [address], [address] ([facility] Center) [address] [place] [address] Hysterosalpingogram (HSG or x-ray dye test) An HSG is a test used to make sure your fallopian tubes are not blocked. This test can only be done between cycle days 5-11, so it is important for you to call as soon as your period starts to schedule an appointment. You should take ibuprofen 30 minutes before your appointment as this test can cause transient cramping. Please check in at the Radiology department, see below for Radiology locations. If you are allergic to iodine, please inform the hooker inspector. Please call [phone] to schedule. This test is performed at the following centers: ): [facility]: [address] [facility] (1st floor) [address] [facility] ([address]) [place] [address] [place] [address] [address] [place]: [facility]: [address] [facility] ([address]) [address] [facility], (1st floor) [place] [id number] [place] [address] Dear Renny, Thank you for seeing me today at the [facility]. I want to welcome you to my practice and answer some frequently asked questions. 1. How will I find out my test results? Your test results will be automatically released though your My Chart account when available, usually within three days. If you have not yet signed up for My Chart, I encourage you to do so. If there is something abnormal that requires action right away, you will be contacted by either me or my nurse. For mild abnormalities that do not require action, we may discuss at the next visit. If you are not signed up for My Chart or if you have questions, you will have to call the office for your results. 2. How do I contact you or your office? My Chart is for non-urgent questions. Remember that My Chart messages may not be answered for several days. If you are doing IVF, you should always call the office because these issues are time-sensitive. If you are not signed up for My Chart or if you have a time-sensitive question, you should always call. Our office number is [phone] (press 4 to reach a escrow secretary). For Gregory patients, you can also call [phone] for [place] office (ask for OB subspecialties area and a nurse will call you back) during the week day. If you need to reach the office during off hours (for urgent matters only please), please call our main office number at [phone]. You will be connected to the call center who will page the nurse or the physician ultrasonographer for you. 3. How does My Chart work? My chart is best for short, non-urgent questions. Please limit yourself to 1-2 questions or a few short sentences rather than multiple paragraphs in a My Chart message. If you have more questions than that, you should probably call and speak with a nurse or schedule a short visit with me. My Chart cannot be used to schedule an appointment or an office procedure. Remember that My Chart messages may not be answered for several days. If you are having pain or bleeding, you should call rather than My Chart. 4. When should I follow up? You have four options after our initial visit. You can schedule an in-office follow up visit in 4-6 weeks (at which point we should have all necessary tests to review and can go over your plan together in person) OR you can schedule a virtual visit with me in 4-6 weeks OR we can develop a plan over My Chart OR you can review your plan by phone with one of my nurses. Some of my patients prefer to save on the cost of a second visit by using My Chart instead. Either way, we should have a plan to move forward within 6 weeks of your initial visit so that we do not lose time. Please make sure that you contact me for the plan if it has been 6 weeks since your initial visit and we have not make plans for you. For complex medical issues, it would be best for us to meet in person for follow up. In such cases, you will be contacted by my office and ask to make a follow up appointment. 5. What is virtual visit? Telemedicine is the newest ?virtual visit? that we are now offering to allow you to have a sivp-fz-wezi conversation with a clinician for 15 minutes, without the need for driving to our clinic, paying for parking, stopping over for meals, etc. This is a self-pay option for which you will be charged $49, and you will need a computer or smartphone (with a built-in camera), should you wish to avail of this convenient alternative. If you are interested in the telemedicine visit, please let me know and we will facilitate that visit. 6. What if all my testing is normal? This is not unusual and may mean that you may have a condition called ?unexplained infertility.? Although it is frustrating not to have a clear diagnosis, the prognosis is still very good. The most important fact is that unexplained infertility still requires treatment to expedite a good outcome. Please do follow up even if all testing is normal to come up with a treatment plan. 7. What if you are out of the office or unavailable when I have a question? I have a team of nurses, nurse practitioners, and colleagues (there are six other physicians in the fertility division) and we are very consistent in our practices. I completely trust any of these team members in my absence to make recommendations and plans and we can discuss your questions in detail when I return. 8. What if I have trouble getting on your schedule? Sometimes It can take a few weeks to get on the schedule or you may have to go to a different location than you prefer. Sometimes you may choose to check in with one of my partners if they are available sooner. However, if you are completely unable to get in during a reasonable time frame, please contact me via My Chart and I will do my best to add you in to my schedule. 9. What if I am feeling discouraged or am confused about my plan? It can be discouraging if you don?t become right away with treatment, but don?t give up hope. With most of the treatments we try, it requires a few attempts for it to work (although we always hope it works the first time!).There are often many other options to try. Please call to arrange a follow up visit to explore your options. There is no automatic follow up mechanism in our practice, so if patients do not call or plan an appointment, you may become ?lost to follow up.? Therefore, if you are concerned about your plan or about treatment not working, please reach out so that we can talk again. Tory Hess MD 07/22/2018 10:33 AM Signed PCOS - discuss starting letrozole after HSG (if hsg normal) Septate uterus - pt decides not to have septoplasty unless she needs other surgery. Menorrhagia - ?from anovulatory. She will try naproxen. She knows that I might suggest DANDC. History of Chlamydia - HSG. Referring Provider: JEN ESCOBEDO [[id number]] Allergies As of Date: 05/30/2018 (No Known Allergies) Date Reviewed: 05/30/2018 Reviewed by: Odalys Ceballos) Jaylon - Fully Assessed Reason for Visit: Infertility [285] Primary Visit Diagnosis:Fertility testing [Z31.41] Other Visit Diagnosis:PCOS (polycystic ovarian syndrome) [E28.2] Order(s):XR HYSTEROSALPINGOGRAM [8592221] Order #: [id number] FUTURE naproxen (NAPROSYN) 500 mg tabletTake 1 tablet by mouth twice daily as needed. for pain. Take with food.Disp: 30 tabletRfl: 11 Prescriptions as of 05/30/2018 Sig: ASPIRIN 500 MG-ACETAMINOPHEN * Take 1 Packet by mouth as nee* NAPROXEN 500 MG TABLET Take 1 tablet by mouth twice * Problem List As Of Date: 05/30/2018 (None) Other instructions from your clinician: INSTRUCTIONS FOR INFERTILITY TESTING Semen Analysis The semen samples that you have been asked to submit are important for diagnostic and therapeutic purposes. Please abstain from ejaculating 2-3 days prior to collecting the sample. The sample should be produced by masturbation. You will need to collect the ejaculate into the container supplied by the [facility] (you can get containers at your doctor's office). Do not use other plastic containers from home such as Tupperware as these containers as they may interfere with the test results. Lubricants and saliva also interfere with test results. If a collection condom is necessary, please request one at the Andrology lab and they will provide you with an appropriate collection condom. It is extremely important that the entire sample is collected in the container as the first few drops of ejaculate contain a major portion of sperm. If you do not collect the entire specimen, please inform the technologist. You can collect at home as long as you can get the sample to the Andrology lab within 1 hour of collecting. Please mary your name and time of collection on the container. You should carry the container close to your body. Collection rooms are available at all locations as well. An appointment is needed to ensure the lab has enough time to process your specimen. Please call [phone] to schedule. This test is done at the following centers: ): [address] [facility], [place], [place] [address] [place] [address] [facility], [address] ([facility]) [address] [place] [address] Hysterosalpingogram (HSG or x-ray dye test) An HSG is a test used to make sure your fallopian tubes are not blocked. This test can only be done between cycle days 5-11, so it is important for you to call as soon as your period starts to schedule an appointment. You should take ibuprofen 30 minutes before your appointment as this test can cause transient cramping. Please check in at the Radiology department, see below for Radiology locations. If you are allergic to iodine, please inform the hooker inspector. Please call [phone] to schedule. This test is performed at the following centers: ): [facility]: [address] [facility] (1st floor) [address] [facility] ([address]) [place] [address] [place] [address] [address] [place]: [facility]: [address] [facility] ([address]) [address] [facility], (1st floor) [place] [phone] [place] [address] Dear Renny, Thank you for seeing me today at the [facility]. I want to welcome you to my practice and answer some frequently asked questions. 1. How will I find out my test results? Your test results will be automatically released though your My Chart account when available, usually within three days. If you have not yet signed up for My Chart, I encourage you to do so. If there is something abnormal that requires action right away, you will be contacted by either me or my nurse. For mild abnormalities that do not require action, we may discuss at the next visit. If you are not signed up for My Chart or if you have questions, you will have to call the office for your results. 2. How do I contact you or your office? My Chart is for non-urgent questions. Remember that My Chart messages may not be answered for several days. If you are doing IVF, you should always call the office because these issues are time-sensitive. If you are not signed up for My Chart or if you have a time-sensitive question, you should always call. Our office number is [phone] (press 4 to reach a escrow secretary). For Gregory patients, you can also call [phone] for [facility] office (ask for OB subspecialties area and a nurse will call you back) during the week day. If you need to reach the office during off hours (for urgent matters only please), please call our main office number at [phone]. You will be connected to the call center who will page the nurse or the physician ultrasonographer for you. 3. How does My Chart work? My chart is best for short, non-urgent questions. Please limit yourself to 1-2 questions or a few short sentences rather than multiple paragraphs in a My Chart message. If you have more questions than that, you should probably call and speak with a nurse or schedule a short visit with me. My Chart cannot be used to schedule an appointment or an office procedure. Remember that My Chart messages may not be answered for several days. If you are having pain or bleeding, you should call rather than My Chart. 4. When should I follow up? You have four options after our initial visit. You can schedule an in-office follow up visit in 4-6 weeks (at which point we should have all necessary tests to review and can go over your plan together in person) OR you can schedule a virtual visit with me in 4-6 weeks OR we can develop a plan over My Chart OR you can review your plan by phone with one of my nurses. Some of my patients prefer to save on the cost of a second visit by using My Chart instead. Either way, we should have a plan to move forward within 6 weeks of your initial visit so that we do not lose time. Please make sure that you contact me for the plan if it has been 6 weeks since your initial visit and we have not make plans for you. For complex medical issues, it would be best for us to meet in person for follow up. In such cases, you will be contacted by my office and ask to make a follow up appointment. 5. What is virtual visit? Telemedicine is the newest ?virtual visit? that we are now offering to allow you to have a vpnx-ym-avey conversation with a clinician for 15 minutes, without the need for driving to our clinic, paying for parking, stopping over for meals, etc. This is a self-pay option for which you will be charged $49, and you will need a computer or smartphone (with a built-in camera), should you wish to avail of this convenient alternative. If you are interested in the telemedicine visit, please let me know and we will facilitate that visit. 6. What if all my testing is normal? This is not unusual and may mean that you may have a condition called ?unexplained infertility.? Although it is frustrating not to have a clear diagnosis, the prognosis is still very good. The most important fact is that unexplained infertility still requires treatment to expedite a good outcome. Please do follow up even if all testing is normal to come up with a treatment plan. 7. What if you are out of the office or unavailable when I have a question? I have a team of nurses, nurse practitioners, and colleagues (there are six other physicians in the fertility division) and we are very consistent in our practices. I completely trust any of these team members in my absence to make recommendations and plans and we can discuss your questions in detail when I return. 8. What if I have trouble getting on your schedule? Sometimes It can take a few weeks to get on the schedule or you may have to go to a different location than you prefer. Sometimes you may choose to check in with one of my partners if they are available sooner. However, if you are completely unable to get in during a reasonable time frame, please contact me via My Chart and I will do my best to add you in to my schedule. 9. What if I am feeling discouraged or am confused about my plan? It can be discouraging if you don?t become right away with treatment, but don?t give up hope. With most of the treatments we try, it requires a few attempts for it to work (although we always hope it works the first time!).There are often many other options to try. Please call to arrange a follow up visit to explore your options. There is no automatic follow up mechanism in our practice, so if patients do not call or plan an appointment, you may become ?lost to follow up.? Therefore, if you are concerned about your plan or about treatment not working, please reach out so that we can talk again. Prescriptions ordered this encounter Disp Refills Start End NAPROXEN 500 MG TABLET 30 t* 11 05/30/2018 Route: ORAL Sig: Take 1 tablet by mouth twice daily as needed. for pain. Take with food. Disposition: Return in about 6 weeks (around 07/11/2018). Follow-up and Disposition History Recorded Encounter Status:Closed by CAPRICE MARSHALL MD on 07/22/18 Normal [facility] CONSULT PROGon 05-30-2018 CONSULT PROG HNO ID: [id number] Author: Caprice Montgomery Service: ? Author Type: Physician Type: Consult Progress Note Filed: 07/22/2018 10:33 AM Note Text: [facility] Date: 05/30/2018 Consultation Requested By: Dr Jen Escobedo Renny Godwin is a 22 year old female presenting with the following history: HISTORY OF PRESENT ILLNESS: Renny Godwin is a 22 year old year old female with Together x 15 months and has been TTC since. has a 7 yo son from previous relationship. Irregular period q 21 days. 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 H/o Chlamydia when she was a teenager. Using tampon every hours. Feel lightheaded first day. Taking PNV in the past. Obstetric History T0 L0 SAB0 TAB0 Ectopic0 Multiple0 Live Births0 Fertility Evaluations and Treatments: Eval Checklist Results Date Comments HSG Hysteroscopy Laparoscopy OPK (Ovulation Predictor Kit) Ovarian [place] Saline Ultrasound Semen Analysis Ultrasound heart shaped uterus 04-18-18 Other (See comments) MENSTRUAL HISTORY: Menarche Age: [age] year old Length of Cycle: q 31-41 days Irregular Days: 5-7 days Menstrual Flow: Light,Heavy Menstrual Symptoms: Breast Tenderness,Mood Changes,Bloating,Cramping Patient's last menstrual period was 05/09/2018. PAST MEDICAL HISTORY Diagnosis Date - Irregular menses - NEGATIVE MEDICAL HISTORY PAST SURGICAL HISTORY Procedure Laterality Date - ELBOW SURGERY HX Right No family history on file. 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 No current facility-administered medications on file prior to visit. ALLERGIES: Patient has no known allergies. [facility] PAP Results: Normal Date: 04-04-18 HPV Results: Negative Date: 04-04-18 Blood Type: No results found for this basename: aborhd No results found for this basename: rubqnt,vzvg Assessment and Plan PCOS - discuss starting letrozole after HSG (if hsg normal) Septate uterus - pt decides not to have septoplasty unless she needs other surgery. Menorrhagia - ?from anovulatory. She will try naproxen. She knows that I might suggest DANDC. History of Chlamydia - HSG. I spent a total of 30 minutes face to face with the patient. Greater than 50% of the time was spent counseling and coordinating the care based on my plan and assessment as noted. Consultation requested by Dr. Escobedo for an opinion regarding PCOS and my recommendations will be communicated back to the requesting physician by way of shared Medical record or letter via US mail , MD signature - MD Tory Boggs MD [facility] CNOVon 04-25-2018 CNOV Office Visit (WCTRMN ) RENNY GODWIN ([id number]) 1995 F Date Time Provider Department 04/25/18 11:00 AM JEN ESCOBEDO WCTRMN During your visit today, we recorded the following information about you: Blood pressure Weight Height 108/82 98.4 kg 1.727 m Jen Escobedo MD 04/25/2018 11:49 AM Signed Pt is a 22 year old year old female here for follow up to discuss test results for the evaluation of infrequent heavy menses. . Test results include: Ultrasound and labs. Patient Info Patient Name Sex Renny Diaz ([id number]) Female 1995 04/18/2018 ?6:03 PM - [facility] Results Report Summary: Overall impression: 1. 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 2. ?The contour of the uterus and the endometrial cavity were evaluated with 3-D imaging. ?Findings are suggestive of arcuate uterus. 3. ?Both ovaries contain multiple small follicular cysts at the periphery of the ovarian stroma. 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 ? 4. ?No adnexal masses were observed. 5. ?There is free fluid in the peritoneal cavity. Recommendations / therapy: Re-scan as clinically indicated. Indication: menorrhagia with irregular cycle. Relevant history: last period 04/01/2018 (day of cycle 18). Gynecological Ultrasonography: Uterus: retroverted. Size: Longitudinal 73 mm. Anterio- posterior 37 mm. Transverse 27 mm. Volume: 38.2 ?ml. Endometrium thickness total: 6.1 mm. Right Ovary: normal. Morphology: polycystic. Right Ovary size: 40 mm x 23 mm x 28 mm. Volume: 13.5 ml. Left Ovary: normal. Morphology: polycystic. Left Ovary size: 36 mm x 16 mm x 28 mm. Volume: 8.4 ml. Cul de Sac / Pouch of Brian: Small amount of free fluid. Method: transvaginal ultrasound, transabdominal ultrasound, color Doppler, 2 D, 3 D. Performed by:Alicia Shoemaker RDMS Read by:Osmel Chanel M.D. Results for RENNY GODWIN ( ) as of 04/25/2018 11:46 Ref. Range 04/04/2018 13:05 Sodium Latest Ref Range: 136 - 144 mmol/L 139 Potassium Latest Ref Range: 3.7 - 5.1 mmol/L 4.2 Chloride Latest Ref Range: 97 - 105 mmol/L 101 CO2 Latest Ref Range: 22 - 30 mmol/L 24 BUN Latest Ref Range: 7 - 21 mg/dL 10 Creatinine Latest Ref Range: 0.58 - 0.96 mg/dL 0.79 Glucose Latest Ref Range: 74 - 99 mg/dL 94 Protein, Total Latest Ref Range: 6.3 - 8.0 g/dL 7.2 Calcium Latest Ref Range: 8.5 - 10.2 mg/dL 9.8 Albumin Latest Ref Range: 3.9 - 4.9 g/dL 4.1 Bilirubin, Total Latest Ref Range: 0.2 - 1.3 mg/dL 0.3 Alkaline Phosphatase Latest Ref Range: 34 - 123 U/L 94 ALT Latest Ref Range: 7 - 38 U/L 27 AST Latest Ref Range: 13 - 35 U/L 44 (H) Anion Gap Latest Ref Range: 9 - 18 mmol/L 14 eGFR- Unknown >60 eGFR-All Other Races Latest Units: . >60 Cholesterol, Total Latest Ref Range: <200 mg/dL 172 Triglyceride Latest Ref Range: <150 mg/dL 101 Fasting Time Latest Units: hrs 12 HDL Cholesterol Latest Ref Range: >39 mg/dL 52 LDL Cholesterol Latest Ref Range: <100 mg/dL 100 (H) VLDL Cholesterol Latest Ref Range: <30 mg/dL 20 TC:HDL Ratio Latest Ref Range: <5.10 3.31 LDL:HDL Ratio Latest Ref Range: <2.54 1.92 Non HDL Cholesterol Latest Ref Range: <130 mg/dL 120 Hematocrit Latest Ref Range: 36.0 - 46.0 % 38.6 Hemoglobin A1C Latest Ref Range: 4.3 - 5.6 % 5.3 Estimated Average Glucose Latest Units: mg/dL 105 TSH Latest Ref Range: 0.400 - 5.500 uU/mL 2.400 DHEA-S Latest Ref Range: 148.0 - 407.0 ug/dL 148.3 Hydroxyprogesterone Latest Ref Range: <=206.00 ng/dL 15.18 Prolactin Latest Ref Range: 4.5 - 26.8 ng/mL 8.8 Testosterone Latest Ref Range: <40 ng/dL 15 Testosterone Free Latest Ref Range: 1.8 - 10.4 pg/mL 2.5 Testosterone Free % Latest Ref Range: 0.8 - 2.3 % 1.7 WBC Latest Ref Range: 3.70 - 11.00 k/uL 8.32 RBC Latest Ref Range: 3.90 - 5.20 m/uL 4.54 Hemoglobin Latest Ref Range: 11.5 - 15.5 g/dL 12.7 Platelet Count Latest Ref Range: 150 - 400 k/uL 287 MCV Latest Ref Range: 80.0 - 100.0 fL 85.0 MCH Latest Ref Range: 26.0 - 34.0 pG 28.0 MCHC Latest Ref Range: 30.5 - 36.0 g/dL 32.9 MPV Latest Ref Range: 9.0 - 12.7 fL 10.5 RDW-CV Latest Ref Range: 11.5 - 15.0 % 12.7 Absolute nRBC Latest Ref Range: <0.01 k/uL <0.01 No family history on file. Social History Marital status: Spouse name: Years of education: Number of children: Social History Main Topics Smoking status: Never Smoker Smokeless tobacco: Current User Types: Chew Alcohol use: Yes 3.0 oz/week Cans of Beer (12oz): 2 per week Comment: Soccially Drug use: No Sexual activity: Yes Partners with: Male No current outpatient prescriptions on file. No current facility-administered medications for this visit. ALLERGIES No Known Allergies PAST MEDICAL HISTORY Diagnosis Date - NEGATIVE MEDICAL HISTORY Blood pressure 108/82, height 5' 8 (1.727 m), weight 217 lb (98.4 kg), last menstrual period 04/01/2018. pleasant, well developed, well nourished, in no apparent distress ASSESSMENT/PLAN: 1. Scanty or infrequent menstruation - ICD9: 626.1, ICD10: N91.5 (primary diagnosis) Discussed possible etiologies including PCOS. Effects of weight gain also discussed. Patient with history of menstrual dysfunction and polycystic appearance of ovaries but does not have elevated androgens. Options for management discussed. Patient is very anxious for a . Because of the above factors as well as the possibility of arcuate uterus, will consult infertility. - CONSULT TO INFERTILITY CLINIC 2. Menorrhagia with irregular cycle - ICD9: 626.2, ICD10: N92.1 - CONSULT TO INFERTILITY CLINIC 3. Abnormal ultrasound - ICD9: 793.99, ICD10: R93.89 Discussed findings on ultrasound in detail including possible arcuate uterus and potential related issues - CONSULT TO INFERTILITY CLINIC I spent a total of 15 minutes, with greater than 50% of the encounter counseling and coordinating care, based on my plan and assessment. Jen Escobedo MD Referring Provider: JEN ESCOBEDO [[id number]] Allergies As of Date: 04/25/2018 (No Known Allergies) Date Reviewed: 04/25/2018 Reviewed by: So Montes De Oca Ma - Fully Assessed Reason for Visit: Established Patient [175] Primary Visit Diagnosis:Scanty or infrequent menstruation [N91.5] Other Visit Diagnoses:Menorrhagia with irregular cycle [N92.1] Abnormal ultrasound [R93.89] Order(s):CONSULT TO INFERTILITY CLINIC [[id number]] Order #: [id number]: 1 Problem List As Of Date: 04/25/2018 (None) Follow-up and Disposition History Recorded Encounter Status:Closed by JEN ESCOBEDO MD on 04/25/18 Normal [facility] PROGRESSon 04-25-2018 PROGRESS HNO ID: [id number] Author: Jen Escobedo Service: (none) Author Type: Physician Type: Progress Notes Filed: 04/25/2018 11:49 AM Note Text: Pt is a 22 year old year old female here for follow up to discuss test results for the evaluation of infrequent heavy menses. . Test results include: Ultrasound and labs. Patient Info Patient Name Sex Renny Diaz ([id number]) Female 1995 04/18/2018 ?6:03 PM - [facility] Results Report Summary: Overall impression: 1. 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 2. ?The contour of the uterus and the endometrial cavity were evaluated with 3-D imaging. ?Findings are suggestive of arcuate uterus. 3. ?Both ovaries contain multiple small follicular cysts at the periphery of the ovarian stroma. 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 ? 4. ?No adnexal masses were observed. 5. ?There is free fluid in the peritoneal cavity. Recommendations / therapy: Re-scan as clinically indicated. _ Indication: menorrhagia with irregular cycle. Relevant history: last period 04/01/2018 (day of cycle 18). _ Gynecological Ultrasonography: Uterus: retroverted. Size: Longitudinal 73 mm. Anterio- posterior 37 mm. Transverse 27 mm. Volume: 38.2 ?ml. Endometrium thickness total: 6.1 mm. Right Ovary: normal. Morphology: polycystic. Right Ovary size: 40 mm x 23 mm x 28 mm. Volume: 13.5 ml. Left Ovary: normal. Morphology: polycystic. Left Ovary size: 36 mm x 16 mm x 28 mm. Volume: 8.4 ml. Cul de Sac / Pouch of Brian: Small amount of free fluid. Method: transvaginal ultrasound, transabdominal ultrasound, color Doppler, 2 D, 3 D. Performed by:Alicia Shoemaker RDMS Read by:Osmel Chanel M.D. Results for RENNY GODWIN ( ) as of 04/25/2018 11:46 Ref. Range 04/04/2018 13:05 Sodium Latest Ref Range: 136 - 144 mmol/L 139 Potassium Latest Ref Range: 3.7 - 5.1 mmol/L 4.2 Chloride Latest Ref Range: 97 - 105 mmol/L 101 CO2 Latest Ref Range: 22 - 30 mmol/L 24 BUN Latest Ref Range: 7 - 21 mg/dL 10 Creatinine Latest Ref Range: 0.58 - 0.96 mg/dL 0.79 Glucose Latest Ref Range: 74 - 99 mg/dL 94 Protein, Total Latest Ref Range: 6.3 - 8.0 g/dL 7.2 Calcium Latest Ref Range: 8.5 - 10.2 mg/dL 9.8 Albumin Latest Ref Range: 3.9 - 4.9 g/dL 4.1 Bilirubin, Total Latest Ref Range: 0.2 - 1.3 mg/dL 0.3 Alkaline Phosphatase Latest Ref Range: 34 - 123 U/L 94 ALT Latest Ref Range: 7 - 38 U/L 27 AST Latest Ref Range: 13 - 35 U/L 44 (H) Anion Gap Latest Ref Range: 9 - 18 mmol/L 14 eGFR- Unknown >60 eGFR-All Other Races Latest Units: . >60 Cholesterol, Total Latest Ref Range: <200 mg/dL 172 Triglyceride Latest Ref Range: <150 mg/dL 101 Fasting Time Latest Units: hrs 12 HDL Cholesterol Latest Ref Range: >39 mg/dL 52 LDL Cholesterol Latest Ref Range: <100 mg/dL 100 (H) VLDL Cholesterol Latest Ref Range: <30 mg/dL 20 TC:HDL Ratio Latest Ref Range: <5.10 3.31 LDL:HDL Ratio Latest Ref Range: <2.54 1.92 Non HDL Cholesterol Latest Ref Range: <130 mg/dL 120 Hematocrit Latest Ref Range: 36.0 - 46.0 % 38.6 Hemoglobin A1C Latest Ref Range: 4.3 - 5.6 % 5.3 Estimated Average Glucose Latest Units: mg/dL 105 TSH Latest Ref Range: 0.400 - 5.500 uU/mL 2.400 DHEA-S Latest Ref Range: 148.0 - 407.0 ug/dL 148.3 Hydroxyprogesterone Latest Ref Range: <=206.00 ng/dL 15.18 Prolactin Latest Ref Range: 4.5 - 26.8 ng/mL 8.8 Testosterone Latest Ref Range: <40 ng/dL 15 Testosterone Free Latest Ref Range: 1.8 - 10.4 pg/mL 2.5 Testosterone Free % Latest Ref Range: 0.8 - 2.3 % 1.7 WBC Latest Ref Range: 3.70 - 11.00 k/uL 8.32 RBC Latest Ref Range: 3.90 - 5.20 m/uL 4.54 Hemoglobin Latest Ref Range: 11.5 - 15.5 g/dL 12.7 Platelet Count Latest Ref Range: 150 - 400 k/uL 287 MCV Latest Ref Range: 80.0 - 100.0 fL 85.0 MCH Latest Ref Range: 26.0 - 34.0 pG 28.0 MCHC Latest Ref Range: 30.5 - 36.0 g/dL 32.9 MPV Latest Ref Range: 9.0 - 12.7 fL 10.5 RDW-CV Latest Ref Range: 11.5 - 15.0 % 12.7 Absolute nRBC Latest Ref Range: <0.01 k/uL <0.01 No family history on file. Social History Marital status: Spouse name: Years of education: Number of children: Social History Main Topics Smoking status: Never Smoker Smokeless tobacco: Current User Types: Chew Alcohol use: Yes 3.0 oz/week Cans of Beer (12oz): 2 per week Comment: Soccially Drug use: No Sexual activity: Yes Partners with: Male No current outpatient prescriptions on file. No current facility-administered medications for this visit. ALLERGIES No Known Allergies PAST MEDICAL HISTORY Diagnosis Date - NEGATIVE MEDICAL HISTORY Blood pressure 108/82, height 5' 8 (1.727 m), weight 217 lb (98.4 kg), last menstrual period 04/01/2018. pleasant, well developed, well nourished, in no apparent distress ASSESSMENT/PLAN: 1. Scanty or infrequent menstruation - ICD9: 626.1, ICD10: N91.5 (primary diagnosis) Discussed possible etiologies including PCOS. Effects of weight gain also discussed. Patient with history of menstrual dysfunction and polycystic appearance of ovaries but does not have elevated androgens. Options for management discussed. Patient is very anxious for a . Because of the above factors as well as the possibility of arcuate uterus, will consult infertility. - CONSULT TO INFERTILITY CLINIC 2. Menorrhagia with irregular cycle - ICD9: 626.2, ICD10: N92.1 - CONSULT TO INFERTILITY CLINIC 3. Abnormal ultrasound - ICD9: 793.99, ICD10: R93.89 Discussed findings on ultrasound in detail including possible arcuate uterus and potential related issues - CONSULT TO INFERTILITY CLINIC I spent a total of 15 minutes, with greater than 50% of the encounter counseling and coordinating care, based on my plan and assessment. 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 Please see report under the imaging tab. Osmel Chanel MD Referring Provider: JEN ESCOBEDO [[id number]] Allergies As of Date: 04/18/2018 (No Known Allergies) Date Reviewed: 04/18/2018 Reviewed by: Osmel Chanel - Fully Assessed Primary Visit Diagnosis:Abnormal uterine bleeding (AUB) [N93.9] Problem List As Of Date: 04/18/2018 (None) Encounter Status:Closed by OSMEL CHANEL MD on 04/18/18 [facility] PROGRESSon 04-18-2018 PROGRESS HNO ID: [id number] Author: Osmel Chanel Service: (none) Author Type: Physician Type: Progress Notes Filed: 04/18/2018 6:06 PM Note Text: Renny Godwin presents for magnetic tape winder ultrasound. Please see report under the imaging tab. Osmel Chanel MD Normal [facility] CBCon 04-04-2018 Absolute nRBC <0.01 Normal <0.01 [facility] Comment on above: Performed By: #### T SH, CMP, CBC, DHEAS, HBA1C, PROL, LIPB, FTESTO #### [place] [phone] #### HPROG #### [facility] [address] [place] [address] [phone] Erythrocyte distribution width (RBC) [Ratio] 12.7 % Normal 11.5-15.0 [facility] Comment on above: Performed By: #### T SH, CMP, CBC, DHEAS, HBA1C, PROL, LIPB, FTESTO #### [place] [phone] #### HPROG #### [facility] [address] [place] [address] [phone] Hematocrit (Bld) [Volume fraction] 38.6 % Normal 36.0-46.0 [facility] Comment on above: Performed By: #### T SH, CMP, CBC, DHEAS, HBA1C, PROL, LIPB, FTESTO #### [place] [phone] #### HPROG #### [facility] [address] [place] [address] [phone] Hemoglobin (Bld) [Mass/Vol] 12.7 g/dL Normal 11.5-15.5 [facility] Comment on above: Performed By: #### T SH, CMP, CBC, DHEAS, HBA1C, PROL, LIPB, FTESTO #### [place] [phone] #### HPROG #### [facility] [address] [place] [phone] MCH (RBC) [Entitic mass] 28.0 pG Normal 26.0-34.0 [facility] Comment on above: Performed By: #### T SH, CMP, CBC, DHEAS, HBA1C, PROL, LIPB, FTESTO #### [place] [phone] #### HPROG #### [facility] [address] [place] [phone] MCHC (RBC) [Mass/Vol] 32.9 g/dL Normal 30.5-36.0 [facility] Comment on above: Performed By: #### T SH, CMP, CBC, DHEAS, HBA1C, PROL, LIPB, FTESTO #### [place] [phone] #### HPROG #### [facility] [address] [place] [address] [phone] MCV (RBC) [Entitic vol] 85.0 fL Normal 80.0-100.0 [facility] Comment on above: Performed By: #### T SH, CMP, CBC, DHEAS, HBA1C, PROL, LIPB, FTESTO #### [place] [phone] #### HPROG #### [facility] [address] [place] [phone] Platelet mean volume (Bld) [Entitic vol] 10.5 fL Normal 9.0-12.7 [facility] Comment on above: Performed By: #### T SH, CMP, CBC, DHEAS, HBA1C, PROL, LIPB, FTESTO #### [place] [phone] #### HPROG #### [facility] [address] [place] [address] [phone] Platelets (Bld) [#/Vol] 287 10*3/uL Normal 150-400 [facility] Comment on above: Performed By: #### T SH, CMP, CBC, DHEAS, HBA1C, PROL, LIPB, FTESTO #### [facility] [employer] [facility] [address] [place], [place] [address] #### HPROG #### [facility] [address] [place] [address] [phone] RBC (Bld) [#/Vol] 4.54 10*6/uL Normal 3.90-5.20 [facility] Comment on above: Performed By: #### T SH, CMP, CBC, DHEAS, HBA1C, PROL, LIPB, FTESTO #### [facility] [employer] [facility] [address] [place], [place] [address] #### HPROG #### [facility] [address] [place] [address] [phone] WBC (Bld) [#/Vol] 8.32 10*3/uL Normal 3.70-11.00 [facility] Comment on above: Performed By: #### T SH, CMP, CBC, DHEAS, HBA1C, PROL, LIPB, FTESTO #### [facility] [employer] [address] [place], [place] [address] #### HPROG #### [facility] [address] [place] [address] [phone] CNOVon 04-04-2018 CNOV Office Visit (WCTRMN ) RENNY GODWIN ([id number]) 1995 F Date Time Provider Department 04/04/18 11:30 AM JEN ESCOBEDO WCTRMN During your visit today, we recorded the following information about you: Blood pressure Weight Height Last Period 118/80 100.2 kg 1.727 m 04/01/18 Jen Escobedo MD 04/04/2018 12:57 PM Signed Renny Godwin is a 22 year old who presents for her exam. Patient's last menstrual period was 04/01/2018 (exact date). 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 Since then periods have been very heavy. Has been on oc's since age 13, for 3 years. Then on Implanon for 3 years, and then nuvaring - no problems. Since off OC's, menses very sporadic but heavy. . Has also been trying to conceive. Bleeding is slowing down today - day 4 of cycle. PAST MEDICAL HISTORY Diagnosis Date - NEGATIVE MEDICAL HISTORY PAST SURGICAL HISTORY Procedure Laterality Date - ELBOW SURGERY HX Right No family history on file. Social History Marital status: Spouse name: Years of education: Number of children: Social History Main Topics Smoking status: Never Smoker Smokeless tobacco: Current User Types: Chew Alcohol use: Yes 3.0 oz/week Cans of Beer (12oz): 2 per week Comment: Soccially Drug use: No Sexual activity: Yes Partners with: Male There is no problem list on file for this patient. REVIEW OF SYSTEMS Breast: No breast lumps, nipple d/c, overlying skin changes, redness or skin retraction Urinary: No burning with urination, blood in urine or incontinence.,No change in vaginal discharge, burning, dryness or itching. Bowel: constipation Constitutional symptoms: none Menstrual Hx: LNMP: Patient's last menstrual period was 04/01/2018 (exact date). Menses Onset: 15 Interval: menses every 38 - 60 days since off OC Regular: no Days: Duration: 7 days Days Flow: .At maximum flow the patient is changing a super plus tampon every 2 hours. Change at night: Changes at least once Intermenstral Bleeding: rare spotting Dysmenorrhea: cramping for 1 - 2 days - usually no meds PMS: off OC only 4 days - back aches, breast tenderness and headach Family history of thrombosis:no Migraine: No aura Smoker:chew Exercise:started Previous Pregnancies: 0 Pap Hx: age 17 only and was normal. STD: chlamydia Sexual Hx: No pain/ bleeding with intercourse Contraception: trying to conceive BP 118/80 Ht 5' 8 (1.727 m) Wt 221 lb (100.2 kg) LMP 04/01/2018 (Exact Date) BMI 33.60 kg/m? EXAM: pleasant,well developed,well nourished,white female in no apparent distress NECK: Full range of motion,no adenopathy,thyroid normal HEART: regular rate and rhythm LUNGS: lungs clear to auscultation BREAST: soft, non-tender, symmetric, no dominant mass, normal nipple-areolar complex, no lymphadenopathy and no nipple discharge ABDOMEN: Soft,non-tender,no hernia,No masses, hepatosplenomegaly,No lymphadenopathy PELVIC: external genitalia normal, normal Bartholin's glands, urethra, [place]'s glands, no vulvar lesions, no cervical lesions, good vaginal support, normal appearing perineal body and perianal region, scant amount of blood in vault BIMANUAL: exam compromised by body habitus and no cervical motion tenderness,uterus normal size, shape and consistency,no adnexal masses,non-tender RECTAL: Not done ASSESSMENT/PLAN: 1. Menorrhagia with irregular cycle - ICD9: 626.2, ICD10: N92.1 (primary diagnosis) Possible etiologies discussed. Follow up in office or virtual results and options for management. Will discuss further at that time issues - CBC - TSH BLD - PROLACTIN BLD - COMP METABOLIC PANEL - DHEA-S BLD - TESTOSTERONE, FREE AND TOTAL - HYDROXYPROGESTERO-17 - LIPID PANEL BASIC - HGB A1C - PELVIC US WHI 2. Pap smear for cervical cancer screening - ICD9: V76.2, ICD10: Z12.4 - PAP FLUID CERVICAL SCREENING 3. Scanty or infrequent menstruation - ICD9: 626.1, ICD10: N91.5 - CBC - TSH BLD - PROLACTIN BLD - COMP METABOLIC PANEL - DHEA-S BLD - TESTOSTERONE, FREE AND TOTAL - HYDROXYPROGESTERO-17 - LIPID PANEL BASIC - HGB A1C - PELVIC US WHI 4. examination or test, unconfirmed - ICD9: V72.40, ICD10: Z32.00 - HCG QUAL UR B/O I spent a total of 30 minutes, with greater than 50% of the encounter counseling and coordinating care, based on my plan and assessment. MD Jen Arteaga MD 04/04/2018 12:57 PM Signed Procedures Jen Escobedo MD Referring Provider: SELF [[id number]] Allergies As of Date: 04/04/2018 (No Known Allergies) Date Reviewed: 04/04/2018 Reviewed by: Jen Escobedo - Fully Assessed Reason for Visit: New Patient [172] Cmt: Severe Cramps, Super plus tampon per hour Primary Visit Diagnosis:Menorrhagia with irregular cycle [N92.1] Other Visit Diagnoses:Pap smear for cervical cancer screening [Z12.4] Scanty or infrequent menstruation [N91.5] examination or test, unconfirmed [Z32.00] Order(s):CBC [SQCBC] Order #: [id number] FUTURE TSH BLD [SQTSH] Order #: [id number] FUTURE PROLACTIN BLD [SQPROL] Order #: [id number] FUTURE COMP METABOLIC PANEL [SQCMP] Order #: [id number] FUTURE DHEA-S BLD [SQDHEAS] Order #: [id number] FUTURE TESTOSTERONE, FREE AND TOTAL [SQFTESTO] Order #: [id number] FUTURE HYDROXYPROGESTERO-17 [SQHPROG] Order #: [id number] FUTURE LIPID PANEL BASIC [SQLIPB] Order #: [id number] FUTURE HGB A1C [UKBAB4L] Order #: [id number] FUTURE PELVIC US WHI [2572393] Order #: [id number]: 1 PAP FLUID CERVICAL SCREENING [[id number]] Order #: [id number] HCG QUAL UR B/O [[id number]] Order #: [id number] Problem List As Of Date: 04/04/2018 (None) Encounter Status:Closed by JEN ESCOBEDO MD on 04/04/18 Normal [facility] CYTOLOGYon 04-04-2018 CYTOLOGY Specimen originated from [facility] Specimen #: [id number] Submitting Physician: JEN ESCOBEDO MD SPECIMEN SUBMITTED A: CERVICAL, SCREENING, FLUID FINAL DIAGNOSIS A. CERVICAL, SCREENING, FLUID Satisfactory for interpretation. Negative for intraepithelial lesion or malignancy. This specimen has been analyzed by the ThinPrep Imaging System, an automated imaging and review system, which assists the laboratory in evaluating cells on ThinPrep Pap tests. Following automated imaging, selected banegas from every slide are reviewed by a dental instructor. JUSTINE Mosqueda(ASCP) (Electronic Signature) CLINICAL DATA ROUTINE EXAM, HPV Testing: Yes, Reflex HPV for ASCUS Date of Last Menstrual Period: 04/01/2018 STAINS A: CERVICAL, SCREENING, FLUID THIN PREP ULTRASONOGRAPHER Ebony Barone M.D., Garment Sorter Date of Report: 04/09/2018 Date of Procedure: 04/04/2018 Date of Receipt: 04/05/2018 Submitted by: JEN ESCOBEDO MD Location: A10 Diagnostic interpretation performed at [facility], [address] [place] [address]. The Pap Smear is a screening test for cervical cancer. False negative results occur with all screening tests, emphasizing the need for rescreening at recommended intervals, and clinical correlation. Normal [facility] Comp Metabolic Panelon 04-04 Albumin [Mass/Vol] 4.1 g/dL Normal 3.9-4.9 [facility] Comment on above: Performed By: #### T SH, CMP, CBC, DHEAS, HBA1C, PROL, LIPB, FTESTO #### [place] [address] #### HPROG #### [address] [place] [address] [phone] ALP [Catalytic activity/Vol] 94 U/L Normal 34-123 [facility] Comment on above: Performed By: #### T SH, CMP, CBC, DHEAS, HBA1C, PROL, LIPB, FTESTO #### [place] [phone] #### HPROG #### [facility] [address] [place] [address] [phone] ALT [Catalytic activity/Vol] 27 U/L Normal 7-38 [facility] Comment on above: Performed By: #### T SH, CMP, CBC, DHEAS, HBA1C, PROL, LIPB, FTESTO #### [place] [phone] #### HPROG #### [facility] [address] [place] [address] [phone] Anion gap [Moles/Vol] 14 mmol/L Normal 9-18 [facility] Comment on above: Performed By: #### T SH, CMP, CBC, DHEAS, HBA1C, PROL, LIPB, FTESTO #### [place] [phone] #### HPROG #### [facility] [address] [place] [address] [phone] AST [Catalytic activity/Vol] 44 U/L High 13-35 [facility] Comment on above: Performed By: #### T SH, CMP, CBC, DHEAS, HBA1C, PROL, LIPB, FTESTO #### [place] [phone] #### HPROG #### [facility] [address] [place] [address] [phone] Bilirubin [Mass/Vol] 0.3 mg/dL Normal 0.2-1.3 [facility] Comment on above: Performed By: #### T SH, CMP, CBC, DHEAS, HBA1C, PROL, LIPB, FTESTO #### [place] [phone] [place] [phone] #### HPROG #### [facility] [address] [place] [address] [phone] Calcium [Mass/Vol] 9.8 mg/dL Normal 8.5-10.2 [facility] Comment on above: Performed By: #### T SH, CMP, CBC, DHEAS, HBA1C, PROL, LIPB, FTESTO #### [place] [phone] #### HPROG #### [facility] [address] [place] [address] [phone] Chloride [Moles/Vol] 101 mmol/L Normal 97-105 [facility] Comment on above: Performed By: #### T SH, CMP, CBC, DHEAS, HBA1C, PROL, LIPB, FTESTO #### [place] [phone] #### HPROG #### [facility] [address] [place] [address] [phone] CO2 [Moles/Vol] 24 mmol/L Normal 22-30 [facility] Comment on above: Performed By: #### T SH, CMP, CBC, DHEAS, HBA1C, PROL, LIPB, FTESTO #### [place] [phone] #### HPROG #### [facility] [address] [place] [address] [phone] Creatinine [Mass/Vol] 0.79 mg/dL Normal 0.58-0.96 [facility] Comment on above: Performed By: #### T SH, CMP, CBC, DHEAS, HBA1C, PROL, LIPB, FTESTO #### [place] [phone] #### HPROG #### [facility] [address] [place] [address] [phone] eGFR- Amer. >60 Normal [facility] Comment on above: Performed By: #### T SH, CMP, CBC, DHEAS, HBA1C, PROL, LIPB, FTESTO #### [place] [phone] #### HPROG #### [facility] [address] [place] [address] [phone] GFR/1.73 sq M predicted among non-blacks MDRD (S/P/Bld) [Vol rate/Area] mL/min/{1.73_m2} Normal [facility] Comment on above: Result Comment: eGFR (Estimated GFR) Units of measure: mL/min/1.73 meters squared eGFR is derived from the reexpressed MDRD Study equation using the following parameters: serum creatinine, age, gender and race. The creatinine assay has been calibrated to be traceable to IDMS. An eGFR <60 mL/min/1.73m2 for >3 months is consistent with chronic kidney disease. Refer to KDOQI guidelines for clinical interpretation. In patients with unstable renal function, e.g. those with acute kidney injury, the eGFR may not accurately reflect actual GFR. Performed By: #### T SH, CMP, CBC, DHEAS, HBA1C, PROL, LIPB, FTESTO #### [place] [phone] #### HPROG #### [facility] [address] [place] [address] [phone] Glucose [Mass/Vol] 94 mg/dL Normal 74-99 [facility] Comment on above: Result Comment: The [place] Diabetes Association (ADA) provides guidance for cutoff values for fasting glucose and random glucose. The ADA defines fasting as no caloric intake for at least 8 hours. Fasting plasma glucose results between 100 to 125 mg/dL indicate increased risk for diabetes (prediabetes). Fasting plasma glucose results greater than or equal to 126 mg/dL meet the criteria for diagnosis of diabetes. In the absence of unequivocal hyperglycemia, results should be confirmed by repeat testing. In a patient with classic symptoms of hyperglycemia or hyperglycemic crisis, random plasma glucose results greater than or equal to 200 mg/dL meet the criteria for diagnosis of diabetes. Reference: Standards of Medical Care in Diabetes 2016, [place] Diabetes Association. Diabetes Care. 2016.39(Suppl 1). Performed By: #### T SH, CMP, CBC, DHEAS, HBA1C, PROL, LIPB, FTESTO #### [place] [phone] #### HPROG #### [facility] [address] [place] [address] [phone] Potassium [Moles/Vol] 4.2 mmol/L Normal 3.7-5.1 [facility] Comment on above: Performed By: #### T SH, CMP, CBC, DHEAS, HBA1C, PROL, LIPB, FTESTO #### [place] [phone] #### HPROG #### [facility] [address] [place] [address] [phone] Protein [Mass/Vol] 7.2 g/dL Normal 6.3-8.0 [facility] Comment on above: Performed By: #### T SH, CMP, CBC, DHEAS, HBA1C, PROL, LIPB, FTESTO #### [place] [phone] #### HPROG #### [facility] [address] [place] [address] [phone] Sodium [Moles/Vol] 139 mmol/L Normal 136-144 [facility] Comment on above: Performed By: #### T SH, CMP, CBC, DHEAS, HBA1C, PROL, LIPB, FTESTO #### [place] [phone] #### HPROG #### [facility] [address] [place] [address] [phone] Urea nitrogen [Mass/Vol] 10 mg/dL Normal 7-21 [facility] Comment on above: Performed By: #### T SH, CMP, CBC, DHEAS, HBA1C, PROL, LIPB, FTESTO #### [facility] [address] [place], [place] [address] #### HPROG #### [facility] [address] [place] [address] [phone] DHEA-Son 04-04-2018 DHEA-S 148.3 ug/dL Normal 148.0-407. 0 [facility] Comment on above: Result Comment: Refe rence ranges are age and gender specific. For additional information, reference range tables can be found in the laboratory test directory. The normal values are based on the following source: Dehydroepiandrosterone sulfate (DHEA S) [package insert V 17.0 Bots[place]an]. [facility], [place], [place]: October 2012. Performed By: #### T SH, CMP, CBC, DHEAS, HBA1C, PROL, LIPB, FTESTO #### [facility] [address] [place] [address] #### HPROG #### [facility] [address] [place] [address] [phone] Free Testosteroneon 04-04-19 19 Free Testosterone 2.5 pg/mL Normal 1.8-10.4 [facility] Comment on above: Result Comment: This test was developed and its performance characteristics determined by [facility]'s [facility] [place] (-[facility]). It has not been cleared or approved by the FDA. -[facility] is regulated under CLIA as qualified to perform high-complexity testing. This test is used for clinical purposes. It should not be regarded as investigational or for research. Performed By: #### T SH, CMP, CBC, DHEAS, HBA1C, PROL, LIPB, FTESTO ####[facility] [place], [place] [phone]#### HPROG ####[facility] [address] [place], [place] [phone] Free Testosterone % 1.7 % Normal 0.8-2.3 [facility] Comment on above: Performed By: #### T SH, CMP, CBC, DHEAS, HBA1C, PROL, LIPB, FTESTO ####[facility] [place], [place] [phone]#### HPROG ####[facility] [place], [place] [phone] Testosterone [Mass/Vol] 15 ng/dL Normal <40 [facility] Comment on above: Performed By: #### T SH, CMP, CBC, DHEAS, HBA1C, PROL, LIPB, FTESTO ####[address] [phone]#### HPROG ####[address] [phone] Hemoglobin A1con 04-04-2018 HbA1c (Bld) [Mass fraction] 5.3 % Normal 4.3-5.6 [facility] Comment on above: Result Comment: [place] Diabetes Association guidelines indicate that patients with HgbA1c in the range 5.7-6.4% are at increased risk for development of diabetes, and intervention by lifestyle modification may be beneficial. HgbA1c greater or equal to 6.5% is considered diagnostic of diabetes. Performed By: #### T SH, CMP, CBC, DHEAS, HBA1C, PROL, LIPB, FTESTO #### [facility] [employer] [address] [place] [address] #### HPROG #### [facility] [address] [place] [address] [phone] HbA1c (Bld) [Mass fraction] 105 mg/dL Normal [facility] Comment on above: Result Comment: eAG: (Estimated average glucose) is a calculated value from HgbA1c and is procurement representative of the average blood glucose level in the last 2-3 month period. Performed By: #### T SH, CMP, CBC, DHEAS, HBA1C, PROL, LIPB, FTESTO #### [facility] [employer] [address] [place] [address] #### HPROG #### [facility] [address] [place], [place] [id number] [phone] HydroxyProgesteroneon 2018 HydroxyProgesterone 15.18 ng/dL Normal <=206.00 [facility] Comment on above: Result Comment: (NOT E) INTERPRETIVE INFORMATION for 17-Hydroxyprogesterone in females: Follicular 15 to 70 ng/dL Luteal 35 to 290 ng/dL REFERENCE INTERVAL: 17-Hydroxyprogesterone Qnt, HPLC-MS/MS Access complete set of age- and/or gender-specific reference intervals for this test in the [employer] [facility] Test Directory ([employer]). Test developed and characteristics determined by [facility]. See Compliance Statement B: [employer]/CS Performed by [employer], [address] [place] [address] [id number] [email or web address], Kade Montoya MD, Lab. Director Performed By: #### T SH, CMP, CBC, DHEAS, HBA1C, PROL, LIPB, FTESTO ####[facility] [place], [place] [phone]#### HPROG ####[facility] [place], [place] [phone] Lipid Panel, [place] 019 Cholesterol [Mass/Vol] 172 mg/dL Normal <200 [facility] Comment on above: Result Comment: <200 mg/dL, Desirable 200-239 mg/dL, Borderline high >239 mg/dL, High Performed By: #### T SH, CMP, CBC, DHEAS, HBA1C, PROL, LIPB, FTESTO #### [facility] [address] [place], [place] [address] #### HPROG #### [facility] [address] [place], [place] [id number] [phone] Cholesterol in HDL [Mass/Vol] 52 mg/dL Normal >39 [facility] Comment on above: Result Comment: 40-5 9 mg/dL, Acceptable >59 mg/dL, High: Negative risk factor for coronary heart disease <40 mg/dL, Low: Positive risk factor for coronary heart disease Performed By: #### T SH, CMP, CBC, DHEAS, HBA1C, PROL, LIPB, FTESTO #### [facility] [address] [place] [phone] #### HPROG #### [facility] [address] [place] [address] [phone] Cholesterol in LDL [Mass/Vol] 100 mg/dL High <100 [facility] Comment on above: Result Comment: <100 mg/dL, Optimal 100-129 mg/dL, Near optimal/above optimal 130-159 mg/dL, Borderline high 160-189 mg/dL, High >189 mg/dL, Very high Secondary prevention optimal LDL Cholesterol levels are recommended to be < 70 mg/dL Performed By: #### T SH, CMP, CBC, DHEAS, HBA1C, PROL, LIPB, FTESTO #### [place] [id number] [place] [phone] #### HPROG #### [facility] [address] [place] [address] [phone] Fasting Time 12 hrs Normal [facility] Comment on above: Performed By: #### T SH, CMP, CBC, DHEAS, HBA1C, PROL, LIPB, FTESTO #### [place] [id number] [place] [phone] #### HPROG #### [facility] [address] [place] [address] [phone] LDL:HDL Ratio 1.92 Normal <2.54 [facility] Comment on above: Result Comment: Refe steve: 1. National Cholesterol Education Program ATP III Guideline At-A-Glance Quick Desk Reference: National Heart, Lung, and Blood [place]. National Institutes of Health. 2001: NIH Publication No. 01-3305. 2. An International Atherosclerosis Society position paper: global recommendations for the management of dyslipidemia: executive summary, Atherosclerosis. 2014: 232(2):410-413. Cut Points from the Lipid Research Clinic's Prevalence Study for ages 20 to 24 years can be located in the following reference: Expert Panel on Integrated Guidelines for Cardiovascular Health and Risk Reduction in Children and Adolescents: National Heart, Lung and Blood [place]. Pediatrics. 2011:128(Suppl 5):L184-384. Performed By: #### T SH, CMP, CBC, DHEAS, HBA1C, PROL, LIPB, FTESTO #### [place] [phone] #### HPROG #### [facility] [address] [place] [address] [phone] Non HDL Cholesterol 120 mg/dL Normal <130 [facility] Comment on above: Result Comment: <130 mg/dL, Optimal 130-159 mg/dL, Near optimal/above optimal 160-189 mg/dL, Borderline high 190-219 mg/dL, High >219 mg/dL, Very high Secondary prevention optimal non HDL Cholesterol levels are recommended to be < 100 mg/dL Performed By: #### T SH, CMP, CBC, DHEAS, HBA1C, PROL, LIPB, FTESTO #### [place] [phone] #### HPROG #### [place] [address] [phone] TC:HDL Ratio 3.31 Normal <5.10 [facility] Comment on above: Performed By: #### T SH, CMP, CBC, DHEAS, HBA1C, PROL, LIPB, FTESTO #### [place] [phone] #### HPROG #### [facility] [address] [place] [address] [phone] Triglyceride [Mass/Vol] 101 mg/dL Normal <150 [facility] Comment on above: Result Comment: <150 mg/dL, Normal 150-199 mg/dL, Borderline high 200-499 mg/dL, High >499 mg/dL, Very high Performed By: #### T SH, CMP, CBC, DHEAS, HBA1C, PROL, LIPB, FTESTO #### [address] [place], [place] [address] #### HPROG #### [facility] [address] [place] [address] [phone] VLDL Cholesterol 20 mg/dL Normal <30 [facility] Comment on above: Performed By: #### T SH, CMP, CBC, DHEAS, HBA1C, PROL, LIPB, FTESTO #### [facility] [address] [place], [place] [address] #### HPROG #### [facility] [address] [place] [address] [phone] PROCEDUREon 04-04-2018 PROCEDURE HNO ID: [id number] Author: Jen Escobedo Service: (none) Author Type: Physician Type: Procedures Filed: 04/04/2018 12:57 PM Note Text: Procedures Jen Escobedo MD Normal [facility] PROGRESSon 04-04-2018 PROGRESS HNO ID: [id number] Author: Jen Escobedo Service: (none) Author Type: Physician Type: Progress Notes Filed: 04/04/2018 12:57 PM Note Text: Renny Godwin is a 22 year old who presents for her exam. Patient's last menstrual period was 04/01/2018 (exact date). 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 Since then periods have been very heavy. Has been on oc's since age 13, for 3 years. Then on Implanon for 3 years, and then nuvaring - no problems. Since off OC's, menses very sporadic but heavy. . Has also been trying to conceive. Bleeding is slowing down today - day 4 of cycle. PAST MEDICAL HISTORY Diagnosis Date - NEGATIVE MEDICAL HISTORY PAST SURGICAL HISTORY Procedure Laterality Date - ELBOW SURGERY HX Right No family history on file. Social History Marital status: Spouse name: Years of education: Number of children: Social History Main Topics Smoking status: Never Smoker Smokeless tobacco: Current User Types: Chew Alcohol use: Yes 3.0 oz/week Cans of Beer (12oz): 2 per week Comment: Soccially Drug use: No Sexual activity: Yes Partners with: Male There is no problem list on file for this patient. REVIEW OF SYSTEMS Breast: No breast lumps, nipple d/c, overlying skin changes, redness or skin retraction Urinary: No burning with urination, blood in urine or incontinence.,No change in vaginal discharge, burning, dryness or itching. Bowel: constipation Constitutional symptoms: none Menstrual Hx: LNMP: Patient's last menstrual period was 04/01/2018 (exact date). Menses Onset: 15 Interval: menses every 38 - 60 days since off OC Regular: no Days: Duration: 7 days Days Flow: .At maximum flow the patient is changing a super plus tampon every 2 hours. Change at night: Changes at least once Intermenstral Bleeding: rare spotting Dysmenorrhea: cramping for 1 - 2 days - usually no meds PMS: off OC only 4 days - back aches, breast tenderness and headach Family history of thrombosis:no Migraine: No aura Smoker:chew Exercise:started Previous Pregnancies: 0 Pap Hx: age 17 only and was normal. STD: chlamydia Sexual Hx: No pain/ bleeding with intercourse Contraception: trying to conceive BP 118/80 Ht 5' 8 (1.727 m) Wt 221 lb (100.2 kg) LMP 04/01/2018 (Exact Date) BMI 33.60 kg/m? EXAM: pleasant,well developed,well nourished,white female in no apparent distress NECK: Full range of motion,no adenopathy,thyroid normal HEART: regular rate and rhythm LUNGS: lungs clear to auscultation BREAST: soft, non-tender, symmetric, no dominant mass, normal nipple-areolar complex, no lymphadenopathy and no nipple discharge ABDOMEN: Soft,non-tender,no hernia,No masses, hepatosplenomegaly,No lymphadenopathy PELVIC: external genitalia normal, normal Bartholin's glands, urethra, [place]'s glands, no vulvar lesions, no cervical lesions, good vaginal support, normal appearing perineal body and perianal region, scant amount of blood in vault BIMANUAL: exam compromised by body habitus and no cervical motion tenderness,uterus normal size, shape and consistency,no adnexal masses,non-tender RECTAL: Not done ASSESSMENT/PLAN: 1. Menorrhagia with irregular cycle - ICD9: 626.2, ICD10: N92.1 (primary diagnosis) Possible etiologies discussed. Follow up in office or virtual results and options for management. Will discuss further at that time issues - CBC - TSH BLD - PROLACTIN BLD - COMP METABOLIC PANEL - DHEA-S BLD - TESTOSTERONE, FREE AND TOTAL - HYDROXYPROGESTERO-17 - LIPID PANEL BASIC - HGB A1C - PELVIC US WHI 2. Pap smear for cervical cancer screening - ICD9: V76.2, ICD10: Z12.4 - PAP FLUID CERVICAL SCREENING 3. Scanty or infrequent menstruation - ICD9: 626.1, ICD10: N91.5 - CBC - TSH BLD - PROLACTIN BLD - COMP METABOLIC PANEL - DHEA-S BLD - TESTOSTERONE, FREE AND TOTAL - HYDROXYPROGESTERO-17 - LIPID PANEL BASIC - HGB A1C - PELVIC US WHI 4. examination or test, unconfirmed - ICD9: V72.40, ICD10: Z32.00 - HCG QUAL UR B/O I spent a total of 30 minutes, with greater than 50% of the encounter counseling and coordinating care, based on my plan and assessment. Jen Escobedo MD Normal [facility] Prolactinon 04-04-2018 Prolactin 8.8 ng/mL Normal 4.5-26.8 [facility] Comment on above: Performed By: #### T SH, CMP, CBC, DHEAS, HBA1C, PROL, LIPB, FTESTO #### [facility] [address], [place] [address] #### HPROG #### [facility] [address] [place] [address] [phone] TSHon 04-04-2018 TSH Qn 2.400 uU/mL Normal 0.400-5.50 0 [facility] Comment on above: Result Comment: If t he patient is , TSH reference range varies by gestational period: First Trimester 0.100-2.500 uU/mL Second Trimester 0.200-3.000 uU/mL Third Trimester 0.300-3.000 uU/mL References: 1. De Briseyda L, Raya M, Jose EK, et al. Management of Thyroid Dysfunction during and : An Endocrine Society Clinical Practice Guideline. J Clin Endocrinol Metab, 2012:97:0636-5054. 2. Manuelito BONNER. Overview of thyroid disease in . UpToDate. 2016. Accessed on September 04, 2015. Performed By: #### T SH, CMP, CBC, DHEAS, HBA1C, PROL, LIPB, FTESTO #### [facility] [address], [place] [address] #### HPROG #### [facility] [address] [place] [address] [phone] HAND 3V PA/LAT/OBL RIGHTon 1 04-16-2017 HAND 3V PA/LAT/OBL RIGHT Performed at [facility] APPROVED BY: WILLIAM BRYANT MD EXAMINATION: 3 views of the right hand CLINICAL INFORMATION: Hand pain, no known injury COMPARISON: None. FINDINGS: There is no acute fracture or dislocation. The bony structures are well mineralized and normally aligned. The soft tissues are unremarkable. IMPRESSION: No acute abnormality of the right hand. Normal [facility] WRIST 3V PA/LAT/OBL RIGHTon 02-14-2018 WRIST 3V PA/LAT/OBL RIGHT Performed at [facility] APPROVED BY: WILLIAM BRYANT MD EXAMINATION: 4 views of the right wrist CLINICAL INFORMATION: Wrist pain, no known injury. COMPARISON: None. FINDINGS: There is no acute fracture or dislocation. The bony structures are well mineralized and normally aligned. The soft tissues are unremarkable. IMPRESSION: No acute abnormality of the right wrist. Normal [facility] Vital Signs Date Time Vital Sign Value Performing Clinician David abrams 06-08-2023 15:03-0400 Body temperature 97.9 [degF] Judie Gamboa APRN.HEADER SETUP OPERATOR Work Phone: [facility] 06-08-2023 15:03-0400 Body weight 81 kg Judie Gamboa APRN.CNP Work Phone: [facility] 06-08-2023 15:03-0400 Diastolic blood pressure 77 mm[Hg] Judie Gamboa DIRECTOR FRANCHISE SALES.HEADER SETUP OPERATOR Work Phone: [facility] 06-08-2023 15:03-0400 Heart rate 70 /min Judie Gamboa DIRECTOR FRANCHISE SALES.HEADER SETUP OPERATOR Work Phone: [facility] 06-08-2023 15:03-0400 Respiratory rate 18 /min Judie Gamboa DIRECTOR FRANCHISE SALES.HEADER SETUP OPERATOR Work Phone: [facility] 06-08-2023 15:03-0400 SaO2% (BldA) [Mass fraction] 100 % Judie Gamboa DIRECTOR FRANCHISE SALES.HEADER SETUP OPERATOR Work Phone: [facility] 06-08-2023 15:03-0400 Systolic blood pressure 113 mm[Hg] Judie Gamboa DIRECTOR FRANCHISE SALES.HEADER SETUP OPERATOR Work Phone: [facility] Encounters Encounter Date Encounter Type Care Provider Facility Start: 11-03-2023 End: 11-03-2023 Emergency department patient visit PHYSICIAN [facility] Start: 06-08-2023 End: 06-08-2023 ambulatory [facility] Facility:[facility] Start: 06-08-2023 End: 06-08-2023 Patient encounter procedure Judie Gamboa DIRECTOR FRANCHISE SALES.HEADER SETUP OPERATOR Work Phone: [facility] Comment on above: Strep pharyngitis (P rimary Dx) Start: 02-27-2023 End: 02-27-2023 ambulatory [facility] Facility:[facility] Start: 05-14-2022 End: 05-14-2022 Emergency department patient visit FRANKY PONCE Facility:[facility] Start: 02-02-2022 End: 02-03-2022 ambulatory [facility] Facility: Start: 02-02-2022 End: 02-02-[address] FRANKY PONCE DO [facility] Procedures Date Procedure Procedure Detail Performing Clinician Start: 06-08-2023 STREP A MOLECULAR (POC) [facility] Provider Start: 03-20-2007 Elbow region structu re (body structure) DR FRANKY PONCE DO Comment on above: right elbow surgery section DR FRANKY BOWLING DO Ligation of fallopia n tube DR FRANKY PONCE DO Plan of Treatment Date Care Activity Detail Author Start: 08-14-2030 Urine microalbumin profile DTa P,Tdap,Td Vaccine (9 - Td or Tdap) [facility] Start: 03-20-2023 Depression Assessment Depression Ass essment [facility] Start: 11-18-2022 Covid-19 Vaccine ( season) Covid-19 Vaccine () [facility] Start: 11-18-2022 Influenza vaccination Influenza Vacc ine (#1) [facility] Start: 04-04-2021 Screening for malign ant neoplasm of cervix Pap Testing [facility] Start: 2012 Hepatitis C screening Hepatitis C Sc reening [facility] Start: 2012 HIV screening HIV Screening [facility] Immunizations Immunization Date Immunization Notes Care Provider Fa cility 08-14-2020 tetanus toxoid, redu chuy diphtheria toxoid, and acellular pertussis vaccine, adsorbed DR FRANKY PONCE DO [facility] 11-03-2011 meningococcal polysaccharide (groups A, C, Y and W-135) diphtheria toxoid conjugate vaccine (MCV4P) DR FRANKY PONCE DO [facility] 05-20-[address] FRANKY PONCE DO [facility] 06-17-[address] FRANKY PONCE DO [facility] 04-16-[address] FRANKY PONCE DO [facility] 04-16-2008 meningococcal polysaccharide (groups A, C, Y and W-135) diphtheria toxoid conjugate vaccine (MCV4P) DR FRANKY PONCE DO [facility] 04-16-[address] Shanae PONCE DO [facility] 10-29-1999 measles/mumps/rubell a virus vaccine DR FRANKY PONCE DO [facility] 05-02-1996 hepatitis B pediatri c vaccine DR FRANKY PONCE DO [facility] 05-02-1996 measles/mumps/rubell a virus vaccine DR FRANKY PONCE DO [facility] 05-02-[address] Shanae PONCE DO [facility] 1994 hepatitis B pediatri c vaccine DR FRANKY PONCE DO [facility] 1994 hepatitis B pediatri c vaccine DR FRANKY PONCE DO [facility] Payers Date Payer Category Payer Unknown [id number] 2022 Unknown ANTHEM BLUE CARD PPO OOS [id number] 2022-Present [phone] [address] [place] [address] PPO [id number] 2019 Medicaid [place] [employer] [place] [id number] 2019-Present [phone] [address] [place] [address] Medicaid [id number] 2019 Unknown [id number] 1994 Unknown [id number] 1994 Unknown [id number] Social History Date Type Detail Facility Tobacco Nicotine Use: ch araujo tobacco. Type: Oral (Snuff, Chew). Number of years: 10. [facility] Tobacco smoking status [facility] Start: 05-14-2022 [facility] Start: 05-14-2022 Tobacco use and exposure User of smokeless tobacco [facility] History of tobacco use Chews Tobacco [facility] Start: 06-08-2023 Alcohol intake Current drinke r of alcohol (finding) [facility] Start: 02-27-2023 End: 06-08-2023 History of Social function [facility] Start: 02-27-2023 End: 06-08-2023 Tobacco use panel [facility] PHQ-2 Score 0 [facility] Start: 04-04-2018 Alcohol Comment [facility] Start: 1995 Sex Assigned At Not on file [facility] Progress note 06-08-2023 Note Date & Type Note Facility 06-08-2023 Note HNO ID: [id number] Author: JUDIE GAMBOA APRN.HEADER SETUP OPERATOR Service: ? Author Type: Nurse Practitioner Type: Progress Notes Filed: 06/08/2023 16:27 Note Text: This note was created using NoteWriter. Subjective Renny Godwin is a 27 year old female. 27 year old female with no PMH presents for illness. Acute onset 2 weeks ago +runny nose + cough +sinus pressure + congestion +sore throat Denies fever or chills Denies SOB or dyspnea Denies abdominal pain Denies N/V/D Has rosa using Tylenol Presents today related to the sore throat continues to bother her. Seems to be worsening The history is provided by the patient. No spanish language lecturer was used. Sore Throat This is a new problem. The current episode started 1 to 4 weeks ago. The problem has been gradually worsening. Neither side of throat is experiencing more pain than the other. There has been no fever. The pain is at a severity of 7/10. The pain is moderate. Associated symptoms include congestion, coughing, headaches and swollen glands. Pertinent negatives include no abdominal pain, diarrhea, drooling, ear discharge, ear pain, hoarse voice, plugged ear sensation, neck pain, shortness of breath, stridor, trouble swallowing or vomiting. She has had no exposure to strep. She has tried nothing for the symptoms. The treatment provided no relief. PAST MEDICAL HISTORY Diagnosis Date Bronchitis Irregular menses Migraines stress related NEGATIVE MEDICAL HISTORY PAST SURGICAL HISTORY Procedure Laterality Date ELBOW SURGERY HX Right PAST SURGICAL HISTORY OF orif RIGHT elbow with screws ALLERGIES Penicillin G MEDICATIONS amoxicillin-clavulanate potassium (AUGMENTIN) 875-125 mg per tablet Take 1 tablet by mouth two times a day for 10 days. vit37/iron/folic acid (PRENATA ORAL) Take by mouth. (Patient not taking: Reported on 02/27/2023) cetirizine (ZYRTEC) 10 mg tablet Take 1 tablet by mouth once daily. (Patient not taking: Reported on 02/27/2023) Urwqgzp-Bkuiavjqnfymh-Gdtsuega (GOODY'S EXTRA STRENGTH) 500-325-65 mg pwpk Take 1 Packet by mouth as needed (for headaches). (Patient not taking: Reported on 02/27/2023) naproxen (NAPROSYN) 500 mg tablet Take 1 tablet by mouth twice daily as needed. for pain. Take with food. (Patient not taking: Reported on 02/27/2023) FAMILY HISTORY Problem Relation Age of Onset None Mother None Father Social History Tobacco Use Smoking status: Never Smokeless tobacco: Current Types: Chew Vaping Use Vaping Use: Never used Substance Use Topics Alcohol use: Yes Comment: Soccially Review of Systems Constitutional: Negative for chills, diaphoresis and fatigue. HENT: Positive for congestion, postnasal drip, sinus pressure, sinus pain and sore throat. Negative for drooling, ear discharge, ear pain, hoarse voice and trouble swallowing. Eyes: Negative for pain, discharge, redness and itching. Respiratory: Positive for cough. Negative for shortness of breath and stridor. Gastrointestinal: Negative for abdominal pain, diarrhea and vomiting. Musculoskeletal: Negative for neck pain. Skin: Negative for color change, pallor, rash and wound. Allergic/Immunologic: Negative for environmental allergies, food allergies and immunocompromised state. Neurological: Positive for headaches. Negative for dizziness, facial asymmetry and light-headedness. Hematological: Negative for adenopathy. Does not bruise/bleed easily. Psychiatric/Behavioral: Negative for agitation and behavioral problems. Objective BP 113/77 Pulse 70 Temp 36.6 ?C (97.9 ?F) Resp 18 Wt 81 kg (178 lb 9.2 oz) LMP 06/06/2023 (Exact Date) SpO2 100% BMI 27.15 kg/m? Physical Exam Vitals and nursing note reviewed. Constitutional: General: She is not in acute distress. Appearance: Normal appearance. She is normal weight. She is not ill-appearing, toxic-appearing or diaphoretic. HENT: Head: Normocephalic and atraumatic. Right Ear: Ear canal and external ear normal. Left Ear: Ear canal and external ear normal. Nose: Congestion present. No rhinorrhea. Mouth/Throat: Mouth: Mucous membranes are moist. Pharynx: Posterior oropharyngeal erythema (2 + enlarged bilateral. Uvula midline.) present. No oropharyngeal exudate. Eyes: General: Right eye: No discharge. Left eye: No discharge. Extraocular Movements: Extraocular movements intact. Conjunctiva/sclera: Conjunctivae normal. Pupils: Pupils are equal, round, and reactive to light. Cardiovascular: Rate and Rhythm: Normal rate and regular rhythm. Pulses: Normal pulses. Heart sounds: Normal heart sounds. No murmur heard. No friction rub. Pulmonary: Effort: Pulmonary effort is normal. No respiratory distress. Breath sounds: Normal breath sounds. No stridor. No wheezing, rhonchi or rales. Chest: Chest wall: No tenderness. Abdominal: General: Abdomen is flat. There is no distension. Palpations: Abdomen (more content not included)... [facility] History of Present illness Narrative 06-08-2023 Judie Gamboa, [facility] - 06/08/2023 3:10 PM EDT Note Date & Type Note Facility 06-08-2023 History of Presen t illness Narrative This note was created using LUMObackriter. Subjective Renny Godwin is a 27 year old female. 27 year old female with no PMH presents for illness. Acute onset 2 weeks ago +runny nose + cough +sinus pressure + congestion +sore throat Denies fever or chills Denies SOB or dyspnea Denies abdominal pain Denies N/V/D Has rosa using Tylenol Presents today related to the sore throat continues to bother her. Seems to be worsening The history is provided by the patient. No spanish language lecturer was used. Sore Throat This is a new problem. The current episode started 1 to 4 weeks ago. The problem has been gradually worsening. Neither side of throat is experiencing more pain than the other. There has been no fever. The pain is at a severity of 7/10. The pain is moderate. Associated symptoms include congestion, coughing, headaches and swollen glands. Pertinent negatives include no abdominal pain, diarrhea, drooling, ear discharge, ear pain, hoarse voice, plugged ear sensation, neck pain, shortness of breath, stridor, trouble swallowing or vomiting. She has had no exposure to strep. She has tried nothing for the symptoms. The treatment provided no relief. PAST MEDICAL HISTORY Diagnosis Date Bronchitis Irregular menses Migraines stress related NEGATIVE MEDICAL HISTORY PAST SURGICAL HISTORY Procedure Laterality Date ELBOW SURGERY HX Right PAST SURGICAL HISTORY OF orif RIGHT elbow with screws ALLERGIES Penicillin G MEDICATIONS amoxicillin-clavulanate potassium (AUGMENTIN) 875-125 mg per tablet Take 1 tablet by mouth two times a day for 10 days. vit37/iron/folic acid (PRENATA ORAL) Take by mouth. (Patient not taking: Reported on 02/27/2023) cetirizine (ZYRTEC) 10 mg tablet Take 1 tablet by mouth once daily. (Patient not taking: Reported on 02/27/2023) Lkvzoiq-Okhfowcrxvint-Bmfaenhx (GOODY'S EXTRA STRENGTH) 500-325-65 mg pwpk Take 1 Packet by mouth as needed (for headaches). (Patient not taking: Reported on 02/27/2023) naproxen (NAPROSYN) 500 mg tablet Take 1 tablet by mouth twice daily as needed. for pain. Take with food. (Patient not taking: Reported on 02/27/2023) FAMILY HISTORY Problem Relation Age of Onset None Mother None Father Social History Tobacco Use Smoking status: Never Smokeless tobacco: Current Types: Chew Vaping Use Vaping Use: Never used Substance Use Topics Alcohol use: Yes Comment: Soccially Review of Systems Constitutional: Negative for chills, diaphoresis and fatigue. HENT: Positive for congestion, postnasal drip, sinus pressure, sinus pain and sore throat. Negative for drooling, ear discharge, ear pain, hoarse voice and trouble swallowing. Eyes: Negative for pain, discharge, redness and itching. Respiratory: Positive for cough. Negative for shortness of breath and stridor. Gastrointestinal: Negative for abdominal pain, diarrhea and vomiting. Musculoskeletal: Negative for neck pain. Skin: Negative for color change, pallor, rash and wound. Allergic/Immunologic: Negative for environmental allergies, food allergies and immunocompromised state. Neurological: Positive for headaches. Negative for dizziness, facial asymmetry and light-headedness. Hematological: Negative for adenopathy. Does not bruise/bleed easily. Psychiatric/Behavioral: Negative for agitation and behavioral problems. Objective BP 113/77 Pulse 70 Temp 36.6 C (97.9 F) Resp 18 Wt 81 kg (178 lb 9.2 oz) LMP 06/06/2023 (Exact Date) SpO2 100% BMI 27.15 kg/m Physical Exam Vitals and nursing note reviewed. Constitutional: General: She is not in acute distress. Appearance: Normal appearance. She is normal weight. She is not ill-appearing, toxic-appearing or diaphoretic. HENT: Head: Normocephalic and atraumatic. Right Ear: Ear canal and external ear normal. Left Ear: Ear canal and external ear normal. Nose: Congestion present. No rhinorrhea. Mouth/Throat: Mouth: Mucous membranes are moist. Pharynx: Posterior oropharyngeal erythema (2 + enlarged bilateral. Uvula midline.) present. No oropharyngeal exudate. Eyes: General: Right eye: No discharge. Left eye: No discharge. Extraocular Movements: Extraocular movements intact. Conjunctiva/sclera: Conjunctivae normal. Pupils: Pupils are equal, round, and reactive to light. Cardiovascular: Rate and Rhythm: Normal rate and regular rhythm. Pulses: Normal pulses. Heart sounds: Normal heart sounds. No murmur heard. No friction rub. Pulmonary: Effort: Pulmonary effort is normal. No respiratory distress. Breath sounds: Normal breath sounds. No stridor. No wheezing, rhonchi or rales. Chest: Chest wall: No tenderness. Abdominal: General: Abdomen is flat. There is no distension. Palpations: Abdomen is soft. There is no mass. Tenderness: There is no abdominal tenderness. There is no right CVA tenderness, left CVA tenderness, guarding or rebound. Hernia: No hernia is present. Musculoskeletal: General: No swelling, tenderness, deformity or signs of injury. Normal range of motion. Cervical back: Normal range of motion and neck supple. No rigidity. Right lower leg: No edema. Left lower leg: No edema. Lymphadenopathy: Cervical: Cervical adenopathy present. Skin: General: Skin is warm and dry. Coloration: Skin is not jaundiced or pale. Findings: No bruising, erythema, lesion or rash. Neurological: General: No focal deficit present. Mental Status: She is alert and oriented to person, place, and time. Cranial Nerves: No cranial nerve deficit. Sensory: No sensory deficit. Motor: No weakness. Coordination: Coordination normal. Gait: Gait normal. Psychiatric: Mood and Affect: Mood normal. Behavior: Behavior normal. Thought Content: Thought content normal. Judgment: Judgment normal. Assessment and Plan ASSESSMENT/PLAN: 1. Strep pharyngitis - ICD9: 034.0, ICD10: J02.0 - Group A strep molecular testing positive - antibiotic as written - Discussed supportive care treatment with fluids, rest and analgesia. - The patient may also use OTC cough and cold meds as needed and warm salt water gargles, throat lozenges and/or OTC throat spray as needed. - Contagious dz precautions discussed- including considered contagious until on antibiotics for 24 hours - The patient should follow up in 3-5 days if symptoms persist or worsen - Call back if drooling, increased temperature, symptoms of dehydration and/or still sick in one week Judie Gamboa APRN.HEADER SETUP OPERATOR documented in this encounter [facility] Progress note 02-27-2023 Note Date & Type Note Facility 02-27-2023 Note HNO ID: [id number] Author: Jhonny Mahajan PA Service: ? Author Type: Physician Coin Machine Operator Type: Progress Notes Filed: 02/27/2023 1:45 PM Note Text: This note was created using LUMObackriter. Subjective Renny Godwin is a 27 year old female. [id number] female presents for congestion, sinus pain, sinus pressure and left ear pain. Patient states she has had congestion for about 2 weeks now. She has sinus pressure in her face. She started getting left ear pain yesterday. She has history of ear infections in the past. No fevers. No vomiting or diarrhea. No other complaints. PAST MEDICAL HISTORY Diagnosis Date Bronchitis Irregular menses Migraines stress related NEGATIVE MEDICAL HISTORY PAST SURGICAL HISTORY Procedure Laterality Date ELBOW SURGERY HX Right PAST SURGICAL HISTORY OF orif RIGHT elbow with screws ALLERGIES Penicillin G MEDICATIONS amoxicillin-clavulanate potassium (AUGMENTIN) 875-125 mg per tablet Take 1 tablet by mouth two times a day for 7 days. vit37/iron/folic acid (PRENATA ORAL) Take by mouth. (Patient not taking: Reported on 02/27/2023) cetirizine (ZYRTEC) 10 mg tablet Take 1 tablet by mouth once daily. (Patient not taking: Reported on 02/27/2023) Dazvblk-Shpnmjrbaqubn-Gxzywlbh (GOODY'S EXTRA STRENGTH) 500-325-65 mg pwpk Take 1 Packet by mouth as needed (for headaches). (Patient not taking: Reported on 02/27/2023) naproxen (NAPROSYN) 500 mg tablet Take 1 tablet by mouth twice daily as needed. for pain. Take with food. (Patient not taking: Reported on 02/27/2023) FAMILY HISTORY Problem Relation Age of Onset None Mother None Father Social History Tobacco Use Smoking status: Never Smokeless tobacco: Current Types: Chew Vaping Use Vaping Use: Never used Substance Use Topics Alcohol use: Yes Comment: Soccially Review of Systems Constitutional: Negative for chills and fever. HENT: Positive for congestion, ear pain and sinus pressure. Negative for sore throat. Respiratory: Negative for cough and shortness of breath. Cardiovascular: Negative for chest pain. Gastrointestinal: Negative for diarrhea and vomiting. Objective BP 102/68 Pulse 63 Temp 36.6 ?C (97.9 ?F) Resp 21 Wt 85.3 kg (188 lb) LMP 05/09/2018 SpO2 98% BMI 28.59 kg/m? Physical Exam Vitals and nursing note reviewed. Constitutional: General: She is not in acute distress. Appearance: Normal appearance. She is not toxic-appearing. HENT: Right Ear: Tympanic membrane and ear canal normal. Left Ear: Ear canal normal. Tympanic membrane is erythematous and bulging. Nose: Mucosal edema and congestion present. Right Sinus: Maxillary sinus tenderness present. Left Sinus: Maxillary sinus tenderness present. Mouth/Throat: Mouth: Mucous membranes are moist. Pharynx: No oropharyngeal exudate or posterior oropharyngeal erythema. Eyes: Conjunctiva/sclera: Conjunctivae normal. Cardiovascular: Rate and Rhythm: Normal rate and regular rhythm. Pulmonary: Effort: Pulmonary effort is normal. Breath sounds: Normal breath sounds. Neurological: Mental Status: She is alert. Assessment and Plan ASSESSMENT/PLAN: 1. Bacterial sinusitis - ICD9: 473.9, 041.9, ICD10: J32.9, B96.89 (primary diagnosis) - Will begin treatment with Augmentin 875 mg PO BID for 7 days - Supportive care with plenty of fluids, rest, and analgesia prn. -Recommend decongestants OTC. 2. Acute otitis media, left - ICD9: 382.9, ICD10: H66.92 - Will begin treatment with Augmentin 875 mg PO BID for 7 days to cover ear and sinusitis. -Patient states she has tolerated amoxicillin in the past. Allergy to penicillin G is just GI upset. Diagnosis and treatment plan were discussed and questions were answered to the patient's satisfaction. Pt acknowledged understanding of concepts and follow up plan. Specific signs and symptoms that would indicate the need for higher level of care were discussed in detail warranting prompt ER evaluation. SUNNI Morales [facility] Evaluation + Plan note Note Date & Type Note Facility Evaluation + Plan note Future Appointments Appointment Date:05/05/2022 04:30:00 PM Scheduled Provider:FRANKY PONCE DO Location:[facility] Appointment Type: Wellness Annual [facility] Evaluation note Note Date & Type Note Facility Evaluation note Diagnosis Strep pharyngitis- Primary Streptococcal sore throat documented in this encounter [facility] course Narrative Note Date & Type Note Facility Hospital course Narrative No data available for this section [facility] Hospital Discharge instructions Note Date & Type Note Facility Hospital Discharge instructions No data available for this section [facility] Progress note Note Date & Type Note Facility Progress note No data available for this section [facility] Summary Purpose Family History No Family History Records FoundNo Family History Records FoundNo Family History Records FoundNo Family History Records FoundNo Family History Records FoundNo Family History Records FoundNo Family History Records FoundNo Family History Records Found Advance Directives No Advanced Directives Records FoundNo Advanced Directives Records FoundNo Advanced Directives Records FoundNo Advanced Directives Records FoundNo Advanced Directives Records FoundNo Advanced Directives Records FoundNo Advanced Directives Records FoundNo Advanced Directives Records Found Additional Source Comments INFORMATION SOURCE (unrecogn ized section and content) DATE CREATED AUTHOR 10/13/2018 [facility] DATE CREATED AUTHOR AUTHOR'S ORGANIZ ATION 12/23/2018 [facility] DATE CREATED AUTHOR AUTHOR'S ORGANIZ ATION 10/28/2019 [employer] DATE CREATED AUTHOR AUTHOR'S ORGANIZ ATION 11/12/2019 [facility] DATE CREATED AUTHOR AUTHOR'S ORGANIZ ATION 02/05/2022 [facility] DATE CREATED AUTHOR AUTHOR'S ORGANIZ ATION [facility]/14[facility]2022 [facility] DATE CREATED AUTHOR AUTHOR'S ORGANIZ ATION 06/10/2023 [facility] DATE CREATED AUTHOR AUTHOR'S ORGANIZ ATION 11/10/2023 [facility] Care Team (unrecognized sect ion and content) Care Team Personnel Name: FRANKY PONCE DO Position: P4 Physician - Primary Care Member Role: Primary Care Physician Address: Address: [address] [facility] [address] [place], [place] [id number] [place] [address] Care Team Related Persons Name: BARRY GODWIN Source Comments (unrecognize d section and content) In the event this informatio n is protected by the Federal Confidentiality of Alcohol and Drug Abuse Patient Records regulations: The Federal rules restrict any use of the information to criminally investigate or prosecute any alcohol or drug abuse patient.[facility] Reason for Visit (unrecogniz ed section and content) Reason Comments Sore Throat Head congestion, lef t ear pain, runny nose x 2 weeks Care Teams (unrecognized sec tion and content) Corporate Wellness Coordinator Relationship Specialty Start Date End Date Franky Ponce DO [address] [place] [address] PCP - General Family Medicine 05/14/22 FOR RECORDS PERTAINING TO PATIENTS WHO ARE OR HAVE BEEN ENROLLED IN A CHEMICAL DEPENDENCY/SUBSTANCEABUSE PROGRAM, SOME INFORMATION MAY BE OMITTED. This clinical summary was aggregated from multiple sources. Caution should be exercised in using it in the provision of clinical care. This summary normalizes information from multiple sources, and as a consequence, information in this document may materially change the coding, format and clinical context of patient data. In addition, data may be omitted in some cases. CLINICAL DECISIONS SHOULD BE BASED ON THE PRIMARY CLINICAL RECORDS. [employer] provides no warranty or guarantee of the accuracy or completeness of information in this document.
== END 2024-01-11 19:13 | disposition left against medical advice (07) ==
LOC: ED 19:25
PROVIDERS: PCP Student in an Organized Health Care Education/Training Program
DX: Z53.21 Procedure and treatment not carried out due to patient leaving prior to being seen by health care provider (principal)